=== PATIENT | female | born 1990 | race Caucasian/White ===

== ENCOUNTER → 2017-05-04 | Outpatient (CLI) | payer OTHER ==
[2015-04-10 13:34] VITALS: BMI 30.0
[~2017-05-04] MED LIST: ACE3 PO; ACET-1966 PO; AZI250 PO; BCP; CHOL100058 PO; CIPR500T12 PO; CYCL10TA29 PO; DOXY-179 PO; DUL20 PO; ETHI1TAB25 PO; FLUO-202 PO; GABA-549 PO; GUAI480S48 PO; HYDR-385 PO; HYDR25CA83 PO; HYDR2TAB4 PO; IBU600 PO; IBU800 PO; IBUP-56 PO; IBUP800T37 PO; INUL1TAB POF; KET10 PO; LAMO25TA72 PO; LEVO112T44 PO; LEVO1TAB PO; LOR5 PO; LOR5/325 PO; LOSA25TA50 PO; METO25TA23 PO; METR-1 PO; MULT-1372 PO; MULT-817 PO; NO RTN MEDS; NOR5/325 PO; NORE0.3516 PO; OMEP-218 PO; ONDA4TAB PO; ONDA4TAB9 PO; ONDA4TAB97 PO; OXC300 PO; OXYC-373 PO; OXYC-865 PO; PANT40TA65 PO; PER PO; PRED20TA6 PO; PRO25 PO; QUET25TA30 PO; STOOL SOFTENER PO; TOPI-120 PO
== END ==
LOC: LAB 09:44
PROVIDERS: ATTEND Internal Medicine Endocrinology, Diabetes & Metabolism
DX: E05.90 Thyrotoxicosis, unspecified without thyrotoxic crisis or storm (principal); E04.2 Nontoxic multinodular goiter
CPT/HCPCS: 36415; 84443; 84481

== ENCOUNTER 2017-05-09 12:54 | Emergency (ER) | payer OTHER ==
[2015-04-10 13:34] VITALS: Ht 162.6 cm; Wt 86.2 kg
[~2017-05-09] VITALS: Ht 162.6 cm; Wt 86.2 kg
--- NOTE | 2017-05-09 13:03 | ER Report ---
History and Physical Time Seen By MD: 13:03 HPI/ROS CHIEF COMPLAINT: Headache HISTORY OF PRESENT ILLNESS: This is a 26-year-old female who presents to the emergency department for a headache. Patient states she was seen at urgent care on Sunday for possible influenza which was negative diagnosed with a viral syndrome. Patient states she ended up going home with aches and chills, nausea, vomiting and diarrhea. Patient also states that yesterday she was very tired had a headache all day long, "the worst headache she's ever had", and according to the patient her told her that she had some left-sided facial droop and was slurring her words but the patient elected to go to sleep instead of coming in for evaluation. Patient states that she continues to have a headache today we did see urgent care and was sent to the emergency department for further evaluation. Patient continues to complain of aches, chills, nausea and vomiting as well as diarrhea. Patient denies chest pain, shortness of breath, denies fevers. Patient also drove herself into town today. I did ask the patient if she has a history of migraines, she said no she does not. REVIEW OF SYSTEMS: Constitutional: No fever, no chills. Eyes: No discharge. ENT: No sore throat. Cardiovascular: No chest pain, no palpitations. Respiratory: No cough, no shortness of breath. Gastrointestinal: As above. Genitourinary: No hematuria. Musculoskeletal: No back pain. Skin: No rashes. Neurological: As above. Allergies: Coded Allergies: fluconazole (Verified Allergy, Severe, 05/09/17) "KIDNEYS NEARLY SHUT DOWN" zolpidem (Verified Allergy, Intermediate, 05/09/17) latex (Verified Allergy, Mild, RASH, 05/09/17) promethazine (Verified Allergy, Mild, HIVES, 05/09/17) aripiprazole (Verified Allergy, Unknown, MENTAL STATUS CHANGES, 05/09/17) iron (Verified Allergy, Unknown, DIARRHEA, HIVES, SOB, 05/09/17) Home Meds Active Scripts Ibuprofen (IBUPROFEN) 800 Mg Tablet, 1 TAB PO Q8H, #30 TAB 0 Refills Take with food every 8 hours. Prov:NEAL MONTIEL MD 02/28/17 Reported Medications Inulin/Chromium Picolinate (Fiber Gummies) 1 Each Tab.chew, 1 TAB POF QDAY 02/26/17 Levothyroxine Sodium (SYNTHROID) 112 Mcg Tablet, 125 MCG PO QDAY, TAB 02/26/17 Duloxetine Hcl (CYMBALTA) 20 Mg Capcr, 20 MG PO QDAY, #5 CAP 02/26/17 Discontinued Scripts Ondansetron (ZOFRAN ODT) 4 Mg Tab.rapdis, 4 MG PO Q6H Y for NAUSEA/VOMITING, # 20 TAB.YURY 0 Refills Prov:JAMIE MORA MD 03/03/17 Oxycodone Hcl/Acetaminophen (OXYCODONE-ACETAMINOPHEN 5-325) 1 Each Tablet, 1-2 EACH PO Q4H Y for PAIN, #30 TAB 0 Refills TAKE 1-2 TABLET NEEDED FOR PAIN - NO CLOSER THAN EVERY 4 HOURS. Prov:NEAL MONTIEL MD 02/28/17 Past Medical/Surgical History Patient has a past medical and surgical history of migraines, takes medications for migraines, hypertension, asthma, wears glasses, hyperthyroid, appendectomy, suicide attempt, depression, anxiety, bipolar, hysterectomy, tubal ligation, shoulder scope. Hx Smoking: No Smoking Status: Never Smoker Hx Substance Use Disorder: No Hx Alcohol Use: No Constitutional Vital Sign - Last 24 Hours 05/09/17 05/09/17 05/09/17 05/09/17 13:00 13:01 13:24 13:26 Temp 98.3 Pulse 79 73 Resp 20 11 B/P (MAP) 175/118 (137) 178/118 138/101 (113) Pulse Ox 97 96 O2 Delivery Room Air 05/09/17 05/09/17 05/09/17 05/09/17 13:30 13:54 14:00 14:30 Pulse 68 Resp 14 B/P (MAP) 119/94 (102) 126/89 (101) 133/95 (108) Pulse Ox 96 05/09/17 05/09/17 05/09/17 05/09/17 14:35 14:40 15:00 16:00 Pulse 63 68 Resp 11 B/P (MAP) 140/98 (112) 142/99 (113) Pulse Ox 97 05/09/17 05/09/17 05/09/17 05/09/17 16:10 16:30 16:35 17:00 Pulse 73 79 B/P (MAP) 131/97 (108) 128/89 (102) Pulse Ox 97 96 05/09/17 05/09/17 05/09/17 05/09/17 17:05 17:30 17:35 17:43 Pulse 71 73 B/P (MAP) 124/85 (98) 130/98 (109) Pulse Ox 93 93 Intake and Output 05/09/17 05/09/17 05/10/17 15:00 23:00 07:00 Intake Total 1000 ml Balance 1000 ml Physical Exam General Appearance: The patient is alert, has no immediate need for airway protection and no signs of toxicity. Eyes: Pupils equal and round no pallor or injection. ENT, Mouth: Mucous membranes are moist. Soft palate lifting, uvula midline. Respiratory: There are no retractions, lungs are clear to auscultation. Cardiovascular: Regular rate and rhythm, no murmurs, clicks or rubs. Gastrointestinal: Abdomen is soft and non tender, no masses, bowel sounds normal. Neurological: Alert and oriented 4. Moving all extremities. Following all commands. No focal neuro deficits. No facial droop. No deviation of tongue. Shoulder shrug intact. Able to lift both legs off the gurney. Positive heel-to- bolaños bilaterally. Equal car washer strength. Cranial nerves II through XII intact. Skin: Warm and dry, no rashes. Musculoskeletal: Neck is supple non tender. Extremities are nontender, nonswollen and have full range of motion. DIFFERENTIAL DIAGNOSIS: After history and physical exam differential diagnosis was considered for headache including but not limited to subarachnoid hemorrhage , migraine headache, tension headache and infectious causes such as meningitis, pharyngitis and sinusitis. Medical Decision Making Data Points Result Diagram: 05/09/17 1310 05/09/17 1310 Laboratory Hematology Test 05/09/17 00:00 05/09/17 13:10 Red Blood Count 5.14 M/uL (4.17-5.56) Mean Corpuscular Volume 89.3 fL (80.0-96.0) Mean Corpuscular Hemoglobin 30.8 pg (26.0-33.0) Mean Corpuscular Hemoglobin Concent 34.5 g/dL (32.0-36.0) Red Cell Distribution Width 12.6 % (11.5-14.5) Mean Platelet Volume 8.8 fL (7.2-11.1) Neutrophils (%) (Auto) 56.6 % (39.4-72.5) Lymphocytes (%) (Auto) 33.8 % (17.6-49.6) Monocytes (%) (Auto) 6.3 % (4.1-12.4) Eosinophils (%) (Auto) 2.6 % (0.4-6.7) Basophils (%) (Auto) 0.7 % (0.3-1.4) Nucleated RBC Relative Count (auto) 0.1 /100WBC Neutrophils # (Auto) 3.7 K/uL (2.0-7.4) Lymphocytes # (Auto) 2.2 K/uL (1.3-3.6) Monocytes # (Auto) 0.4 K/uL (0.3-1.0) Eosinophils # (Auto) 0.2 K/uL (0.0-0.5) Basophils # (Auto) 0.0 K/uL (0.0-0.1) Nucleated RBC Absolute Count (auto) 0.01 K/uL Peripheral Blood Smear No Y/N Erythrocyte Sedimentation Rate 1 mm/HOUR (0-20) Sodium Level 141 mmol/L (137-145) Potassium Level 3.2 mmol/L (3.5-5.0) Chloride Level 102 mmol/L (98-107) Carbon Dioxide Level 27 mmol/L (22-31) Blood Urea Nitrogen 8 mg/dl (7-18) Creatinine 0.80 mg/dl (0.52-1.04) Glomerular Filtration Rate Calc > 60.0 Random Glucose 77 mg/dl (75-110) Calcium Level 9.0 mg/dl (8.4-10.2) Total Bilirubin 0.5 mg/dl (0.2-1.3) Aspartate Amino Transf (AST/SGOT) 31 U/L (0-35) Alanine Aminotransferase (ALT/SGPT) 41 U/L (0-56) Alkaline Phosphatase 75 U/L (0-126) Total Protein 7.7 gm/dl (6.3-8.2) Albumin 4.2 g/dl (3.5-5.0) Chemistry Test 05/09/17 00:00 05/09/17 13:10 White Blood Count 6.6 k/uL (4.5-11.0) Red Blood Count 5.14 M/uL (4.17-5.56) Hemoglobin 15.8 g/dL (12.0-16.0) Hematocrit 45.9 % (34.0-47.0) Mean Corpuscular Volume 89.3 fL (80.0-96.0) Mean Corpuscular Hemoglobin 30.8 pg (26.0-33.0) Mean Corpuscular Hemoglobin Concent 34.5 g/dL (32.0-36.0) Red Cell Distribution Width 12.6 % (11.5-14.5) Platelet Count 246 K/uL (150-450) Mean Platelet Volume 8.8 fL (7.2-11.1) Neutrophils (%) (Auto) 56.6 % (39.4-72.5) Lymphocytes (%) (Auto) 33.8 % (17.6-49.6) Monocytes (%) (Auto) 6.3 % (4.1-12.4) Eosinophils (%) (Auto) 2.6 % (0.4-6.7) Basophils (%) (Auto) 0.7 % (0.3-1.4) Nucleated RBC Relative Count (auto) 0.1 /100WBC Neutrophils # (Auto) 3.7 K/uL (2.0-7.4) Lymphocytes # (Auto) 2.2 K/uL (1.3-3.6) Monocytes # (Auto) 0.4 K/uL (0.3-1.0) Eosinophils # (Auto) 0.2 K/uL (0.0-0.5) Basophils # (Auto) 0.0 K/uL (0.0-0.1) Nucleated RBC Absolute Count (auto) 0.01 K/uL Peripheral Blood Smear No Y/N Erythrocyte Sedimentation Rate 1 mm/HOUR (0-20) Glomerular Filtration Rate Calc > 60.0 Calcium Level 9.0 mg/dl (8.4-10.2) Total Bilirubin 0.5 mg/dl (0.2-1.3) Aspartate Amino Transf (AST/SGOT) 31 U/L (0-35) Alanine Aminotransferase (ALT/SGPT) 41 U/L (0-56) Alkaline Phosphatase 75 U/L (0-126) Total Protein 7.7 gm/dl (6.3-8.2) Albumin 4.2 g/dl (3.5-5.0) EKG/Imaging Imaging Location: [facility] Patient: Emelina Dalal : 1990 Visit/Account:[id number] Date of Sevice: 05/09/2017 EXAMINATION: CT HEAD WITHOUT CONTRAST COMPARISON: None available HISTORY: Headache. PROCEDURE: Noncontrast CT from the vertex through the skull base. One of the following dose optimization techniques was utilized in the performance of this exam: Automated exposure control; adjustment of the mA and/or kV according to the patient's size; or use of an iterative reconstruction technique. Specific details can be referenced in the facility's radiology CT exam operational policy. FINDINGS: Brain volume: Age-appropriate volume. Hemorrhage/extra-axial fluid: No intracranial hemorrhage or extra-axial fluid collection. Mass effect/midline shift/edema: None. Ischemia: Alvarez-white differentiation is preserved. Ventricles and basal cisterns: Ventricle size is within normal limits. Basal cisterns are open. Posterior fossa: Negative. Vessels: Negative. Calvarium, skull base, and scalp: Negative. Visualized sinuses and orbits: Visualized paranasal sinuses are clear. Visualized globes are unremarkable. IMPRESSION: Negative age-appropriate noncontrast head CT. Report Dictated By: Peter Chen MD at 05/09/2017 2:25 PM Report E-Signed By: Peter Chen MD at 05/09/2017 2:28 PM [id number] Location: [facility] Patient: Emelina Dalal : 1990 Visit/Account:[id number] Date of Sevice: 05/09/2017 EXAMINATION: MR brain without IV contrast HISTORY: TIA symptoms. Dizziness. Rule out stroke. COMPARISON: CT head without contrast performed today. MR brain without and with contrast 03/01/2015 TECHNIQUE: Multi-planar, multi-sequence brain MRI was performed without IV contrast administration. FINDINGS: Brain volume: Normal. Sagittal midline structures: Normal. Ventricles: Normal. Acute ischemic changes: None. Hemorrhage: None. Masses / edema: None. Alvarez-white: Negative. White matter lesions: Normal Vessels: Normal T2 flow voids along the central intracranial vasculature. Extra-axial: None. Calvarium / scalp: Negative. Skull base: Negative. Visualized sinuses / orbits: Negative. Visualized upper neck: Negative. IMPRESSION: Normal noncontrast brain MRI without evidence of mass lesion, acute infarct or hemorrhage. Report Dictated By: Olu Tafoya MD at 05/09/2017 4:05 PM Report E-Signed By: Olu Tafoya MD at 05/09/2017 4:10 PM [id number] ED Course/Re-evaluation Clinical Indication for ER IV: Hydration, IV Access ED Course The patient was admitted to room. A history of disc were obtained. Differential diagnoses were considered. An IV was started. A 1 L normal saline bolus was given. 4 mg IV Zofran was given. A noncontrast CT was negative for a stroke. I did review these results with the patient and her father. Given the fact that the patient had "strokelike symptoms yesterday with facial droop" and the " worst headache she is ever had"we discussed a lumbar puncture and an MRI. Patient elected to go ahead and proceed with an MRI 1st, the MRI was negative for any acute findings. I did review these results with the patient and the father again. So discussed again a diagnostic lumbar puncture for her headache and her symptoms, after much discussion with patient and her father, and a father and the patient discussing this alone and they ultimately decided not to proceed with the lumbar puncture and follow up with Sejal Valerio on Sunday. I did tell her this is likely an atypical migraine headache, but without the diagnostic information from the lumbar puncture that we cannot completely rule out an infectious process of the brain, the patient and her father expressed understanding and were okay with this plan of care. Patient was encouraged to take ibuprofen and Tylenol as needed for her headaches and resume her regular medications. I also encouraged patient to follow up with Sejal Valerio regarding her blood pressure, as well as the headaches and a possible referral over to neurology for further evaluation of the migraines. Patient's and her father had no other questions or concerns at this time. Patient was smiling and states the pain had improved with the time she was discharged. The patient was discharged home. Patient was also encouraged to return to the emergency department for any other concerns or worsening symptoms. Decision to Disposition Date: May 09, 2017 Decision to Disposition Time: 17:31 Depart Departure Latest Vital Signs Vital Signs Date Time Temp Pulse Resp B/P (MAP) Pulse Ox O2 Delivery O2 Flow Rate FiO2 05/09/17 17:43 130/98 (109) 05/09/17 17:35 73 93 05/09/17 14:35 11 05/09/17 13:01 98.3 Room Air Impression: Primary Impression: Atypical migraine Condition: Improved Disposition: HOME OR SELF-CARE Referrals: BASSAM HOWELL (PCP) Patient Instructions: Migraine Headache (ED) Additional Instructions: Drink plenty of water. Get plenty of rest, this will be very helpful for your migraine. Please keep your appointment as scheduled with your provider on Sunday. Take ibuprofen and or Tylenol as needed for headaches. Continue current medications. May return to the ED for worsening symptoms. MANA PLASCENCIAP-BC May 09, 2017 13:03
[2017-05-09] MEDS ORDERED: NS(*) 0.9% 1000 ML BAG 1,000 ML IV ONE (13:15)
[2017-05-09] MEDS ORDERED: ONDANSETRON 4 MG/2 ML VIAL IVP ONE (13:15)
[2017-05-09 13:33] LABS: PLATELET COUNT, AUTOMATED 246 K/uL (150-450)
--- NOTE | 2017-05-09 14:32 | RADIOLOGY IMAGING REPORT ---
FACILITY: [facility] [place]IENT NAME: Emelina Dalal : 1990 MR: [id number] V: [id number] EXAM DATE: ORDERING PHYSICIAN: MANA PLASCENCIA TECHNOLOGIST: Location: [facility] [place] Patient: Emelina Dalal : 1990 Visit/Account:[id number] Date of Sevice: 05/09/2017 EXAMINATION: CT HEAD WITHOUT CONTRAST COMPARISON: None available HISTORY: Headache. PROCEDURE: Noncontrast CT from the vertex through the skull base. One of the following dose optimizat ion techniques was utilized in the performance of this exam: Automated exposure control; adjustment o f the mA and/or kV according to the patient's size; or use of an iterative reconstruction technique. Specific details can be referenced in the facility's radiology CT exam operational policy. FINDINGS: Brain volume: Age-appropriate volume. Hemorrhage/extra-axial fluid: No intracranial hemorrhage or extra-axial fluid collection. Mass effect/midline shift/edema: None. Ischemia: Alvarez-white differentiation is preserved. Ventricles and basal cisterns: Ventricle size is within normal limits. Basal cisterns are open. Posterior fossa: Negative. Vessels: Negative. Calvarium, skull base, and scalp: Negative. Visualized sinuses and orbits: Visualized paranasal sinuses are clear. Visualized globes are unremark able. IMPRESSION: Negative age-appropriate noncontrast head CT. Report Dictated By: Peter Chen MD at 05/09/2017 2:25 PM Report E-Signed By: Peter Chen MD at 05/09/2017 2:28 PM [id number]
[2017-05-09] MEDS ORDERED: diphenhydrAMINE 50 MG/ML VIAL IVP ONE (15:30)
--- NOTE | 2017-05-09 16:16 | RADIOLOGY IMAGING REPORT ---
FACILITY: [facility] PATIENT NAME: Emelina Dalal : 1990 MR: [id number] V: [id number] EXAM DATE: ORDERING PHYSICIAN: MANA PLASCENCIA TECHNOLOGIST: Location: [facility] [place] Patient: Emelina Dalal : 1990 Visit/Account:[id number] Date of Sevice: 05/09/2017 EXAMINATION: MR brain without IV contrast HISTORY: TIA symptoms. Dizziness. Rule out stroke. COMPARISON: CT head without contrast performed today. MR brain without and with contrast 03/01/2015 TECHNIQUE: Multi-planar, multi-sequence brain MRI was performed without IV contrast administration. FINDINGS: Brain volume: Normal. Sagittal midline structures: Normal. Ventricles: Normal. Acute ischemic changes: None. Hemorrhage: None. Masses / edema: None. Alvarez-white: Negative. White matter lesions: Normal Vessels: Normal T2 flow voids along the central intracranial vasculature. Extra-axial: None. Calvarium / scalp: Negative. Skull base: Negative. Visualized sinuses / orbits: Negative. Visualized upper neck: Negative. IMPRESSION: Normal noncontrast brain MRI without evidence of mass lesion, acute infarct or hemorrhage . Report Dictated By: Olu Tafoya MD at 05/09/2017 4:05 PM Report E-Signed By: Olu Tafoya MD at 05/09/2017 4:10 PM [id number]
[2017-05-09] MEDS ORDERED: KETOROLAC 30 MG/ML VIAL IVP ONE (16:30)
[2017-05-09 17:43] VITALS: BP 130/98
== END 2017-05-09 17:39 | disposition home or self-care (01) ==
LOC: ER 13:05
DX: G43.809 Other migraine, not intractable, without status migrainosus (principal)
CPT/HCPCS: 70450; 70551; 85025; 85651; 96361; 96374; 96375; 99284; J1200; J1885; J2405; J7030; 82040; 82247; 82310; 82374; 82435; 82565; 82947; 84075; 84132; 84155; 84295; 84450; 84460; 84520

== ENCOUNTER 2017-05-17 22:08 | Emergency (ER) | payer OTHER ==
[2015-04-10 13:34] VITALS: Ht 162.6 cm; Wt 84.8 kg
[~2017-05-17] VITALS: Ht 162.6 cm; Wt 84.8 kg
[2017-05-17] MEDS ORDERED: METO25TA23 PO (22:17)
[2017-05-17] MEDS ORDERED: OLAN10TA25 PO (22:17)
--- NOTE | 2017-05-17 22:23 | ER Report ---
History and Physical Time Seen By MD: 22:23 Hx. of Stated Complaint: PT REPORTS THAT SHE HAS NOT BEEN FEELING WELL. STATES THAT HER BP IS UP AND SHE HAS TINGLING ON LEFT SIDE. HPI/ROS CHIEF COMPLAINT: not feeling well, elevated blood pressure, headache, left side tingling HISTORY OF PRESENT ILLNESS: This is a 26 year old female. She has been having elevated blood pressure for a few weeks now. She has been started on Metoprolol succinate 25mg once a day. She has had a headache for a couple of weeks now. She has tingling in the left arm and leg which has been present for a few weeks as well. Has had CT brain and MRI brain about 1 week ago which were normal. The headache and numbness have not changed in that time. She has mild nausea. She showed me her blood pressure cuff reading which are all elevated, especially the diastolic readings. No fevers or chills with this. REVIEW OF SYSTEMS: Constitutional: No fever or chills. Eyes: No visual changes tonight. ENT: No sore throat. No congestion. Cardiovascular: No chest pain. No palpitations. Respiratory: No cough. No shortness of breath. Gastrointestinal: No abdominal pain. Genitourinary: No dysuria. No frequency Musculoskeletal: No musculoskeletal pain. Skin: No rashes. Neurological: As above. Allergies: Coded Allergies: fluconazole (Verified Allergy, Severe, 05/17/17) "KIDNEYS NEARLY SHUT DOWN" zolpidem (Verified Allergy, Intermediate, 05/17/17) latex (Verified Allergy, Mild, RASH, 05/17/17) promethazine (Verified Allergy, Mild, HIVES, 05/17/17) aripiprazole (Verified Allergy, Unknown, MENTAL STATUS CHANGES, 05/17/17) iron (Verified Allergy, Unknown, DIARRHEA, HIVES, SOB, 05/17/17) Home Meds Active Scripts Metoclopramide Hcl (REGLAN) 10 Mg Tablet, 10 MG PO Q8H Y for HEADACHE, #10 TAB 0 Refills Prov:GORAN VICTORIA MD 05/18/17 Ketorolac Tromethamine (KETOROLAC TROMETHAMINE) 10 Mg Tab, 10 MG PO Q6H Y for PAIN, #12 TAB 0 Refills Prov:GORAN VICTORIA MD 05/18/17 Reported Medications Metoprolol Succinate (METOPROLOL SUCCINATE) 25 Mg Tab.er.24h, 1 TAB PO QDAY, TAB 05/17/17 Olanzapine (OLANZAPINE) 10 Mg Tablet, 10 MG PO HS 05/17/17 Levothyroxine Sodium (SYNTHROID) 112 Mcg Tablet, 125 MCG PO QDAY, TAB 02/26/17 Duloxetine Hcl (CYMBALTA) 20 Mg Capcr, 60 MG PO QDAY, #5 CAP 02/26/17 Discontinued Reported Medications Inulin/Chromium Picolinate (Fiber Gummies) 1 Each Tab.chew, 1 TAB POF QDAY 02/26/17 Discontinued Scripts Ibuprofen (IBUPROFEN) 800 Mg Tablet, 1 TAB PO Q8H, #30 TAB 0 Refills Take with food every 8 hours. Prov:NEAL MONTIEL MD 02/28/17 Reviewed Nurses Notes: Yes Hx Smoking: No Smoking Status: Never Smoker Hx Substance Use Disorder: No Hx Alcohol Use: No Constitutional Vital Sign - Last 24 Hours 05/17/17 05/17/17 05/17/17 05/17/17 22:15 22:18 22:30 22:45 Pulse 87 85 83 84 Resp 10 10 15 11 B/P (MAP) 145/106 146/112 (123) Pulse Ox 95 96 93 92 O2 Delivery Room Air 05/17/17 05/17/17 05/17/17 05/17/17 22:50 22:51 23:00 23:14 Pulse 82 79 79 Resp 14 9 14 B/P (MAP) 130/102 (111) 130/102 (111) 120/89 (99) 120/89 (99) Pulse Ox 94 92 91 O2 Delivery Room Air Room Air 05/17/17 05/17/17 05/17/17 05/18/17 23:15 23:30 23:45 00:00 Pulse 80 79 72 74 Resp 20 8 7 15 B/P (MAP) 120/89 (99) 122/89 (100) Pulse Ox 93 90 91 93 05/18/17 00:15 Pulse 75 Pulse Ox 94 Physical Exam General Appearance: The patient is alert. No acute distress. Eyes: Pupils are equal, round. No pallor, injection or icterus. Reactive to light. Extraocular movements intact. ENT: Mucous membranes are moist. Posterior oropharynx is normal. Normal oral mucosa. Neck: Supple and non tender. Respiratory: Lungs are clear to auscultation. Cardiovascular: Regular rate and rhythm. No murmurs, gallops or rubs. Normal capillary refill. Gastrointestinal: Abdomen is soft, non-tender. Nondistended. Normal active bowel sounds. Neurological: Alert and oriented x3. Paresthesias throughout the left side. Normal motor function. Skin: Warm and dry. Musculoskeletal: Extremities are nontender. Full range of motion. DIFFERENTIAL DIAGNOSIS: After history and physical exam, differential diagnosis was considered for ongoing problems with blood pressure, headache, numbness. Medical Decision Making Data Points Result Diagram: 05/17/17222405/17/172224 Laboratory Hematology Test 05/17/17 22:25 Red Blood Count 5.01 M/uL (4.17-5.56) Mean Corpuscular Volume 89.7 fL (80.0-96.0) Mean Corpuscular Hemoglobin 31.1 pg (26.0-33.0) Mean Corpuscular Hemoglobin Concent 34.7 g/dL (32.0-36.0) Red Cell Distribution Width 12.5 % (11.5-14.5) Mean Platelet Volume 9.1 fL (7.2-11.1) Neutrophils (%) (Auto) 57.8 % (39.4-72.5) Lymphocytes (%) (Auto) 30.4 % (17.6-49.6) Monocytes (%) (Auto) 8.7 % (4.1-12.4) Eosinophils (%) (Auto) 2.2 % (0.4-6.7) Basophils (%) (Auto) 0.9 % (0.3-1.4) Nucleated RBC Relative Count (auto) 0.1 /100WBC Neutrophils # (Auto) 4.7 K/uL (2.0-7.4) Lymphocytes # (Auto) 2.4 K/uL (1.3-3.6) Monocytes # (Auto) 0.7 K/uL (0.3-1.0) Eosinophils # (Auto) 0.2 K/uL (0.0-0.5) Basophils # (Auto) 0.1 K/uL (0.0-0.1) Nucleated RBC Absolute Count (auto) 0.01 K/uL Urine Color Yellow Urine Clarity Clear Urine pH 6.0 pH (4.8-9.5) Urine Specific [place] 1.014 Urine Protein Negative mg/dL (NEGATIVE) Urine Glucose (UA) Negative mg/dL (NEGATIVE) Urine Ketones Negative mg/dL (NEGATIVE) Urine Blood Negative (NEGATIVE) Urine Nitrite Negative (NEGATIVE) Urine Bilirubin Negative (NEGATIVE) Urine Urobilinogen Negative mg/dL (0.2-1.9) Urine Leukocyte Esterase Negative (NEGATIVE) Urine RBC 3 /HPF (0-2/HPF) Urine WBC 2 /HPF (0-5/HPF) Urine Squamous Epithelial Cells Moderate /LPF (</=FEW) Urine Bacteria Negative /HPF (NONE-FEW) Urine Mucus Few /HPF (NONE-FEW) Sodium Level 139 mmol/L (137-145) Potassium Level 3.3 mmol/L (3.5-5.0) Chloride Level 97 mmol/L (98-107) Carbon Dioxide Level 28 mmol/L (22-31) Blood Urea Nitrogen 8 mg/dl (7-18) Creatinine 0.80 mg/dl (0.52-1.04) Glomerular Filtration Rate Calc > 60.0 Random Glucose 102 mg/dl (75-110) Calcium Level 9.2 mg/dl (8.4-10.2) Total Bilirubin 0.3 mg/dl (0.2-1.3) Aspartate Amino Transf (AST/SGOT) 41 U/L (0-35) Alanine Aminotransferase (ALT/SGPT) 56 U/L (0-56) Alkaline Phosphatase 83 U/L (0-126) Troponin I < 0.012 ng/ml Total Protein 7.5 gm/dl (6.3-8.2) Albumin 4.1 g/dl (3.5-5.0) Human Chorionic Gonadotropin, Qual Negative (NEGATIVE) Chemistry Test 05/17/17 22:25 White Blood Count 8.0 k/uL (4.5-11.0) Red Blood Count 5.01 M/uL (4.17-5.56) Hemoglobin 15.6 g/dL (12.0-16.0) Hematocrit 44.9 % (34.0-47.0) Mean Corpuscular Volume 89.7 fL (80.0-96.0) Mean Corpuscular Hemoglobin 31.1 pg (26.0-33.0) Mean Corpuscular Hemoglobin Concent 34.7 g/dL (32.0-36.0) Red Cell Distribution Width 12.5 % (11.5-14.5) Platelet Count 199 K/uL (150-450) Mean Platelet Volume 9.1 fL (7.2-11.1) Neutrophils (%) (Auto) 57.8 % (39.4-72.5) Lymphocytes (%) (Auto) 30.4 % (17.6-49.6) Monocytes (%) (Auto) 8.7 % (4.1-12.4) Eosinophils (%) (Auto) 2.2 % (0.4-6.7) Basophils (%) (Auto) 0.9 % (0.3-1.4) Nucleated RBC Relative Count (auto) 0.1 /100WBC Neutrophils # (Auto) 4.7 K/uL (2.0-7.4) Lymphocytes # (Auto) 2.4 K/uL (1.3-3.6) Monocytes # (Auto) 0.7 K/uL (0.3-1.0) Eosinophils # (Auto) 0.2 K/uL (0.0-0.5) Basophils # (Auto) 0.1 K/uL (0.0-0.1) Nucleated RBC Absolute Count (auto) 0.01 K/uL Urine Color Yellow Urine Clarity Clear Urine pH 6.0 pH (4.8-9.5) Urine Specific [place] 1.014 Urine Protein Negative mg/dL (NEGATIVE) Urine Glucose (UA) Negative mg/dL (NEGATIVE) Urine Ketones Negative mg/dL (NEGATIVE) Urine Blood Negative (NEGATIVE) Urine Nitrite Negative (NEGATIVE) Urine Bilirubin Negative (NEGATIVE) Urine Urobilinogen Negative mg/dL (0.2-1.9) Urine Leukocyte Esterase Negative (NEGATIVE) Urine RBC 3 /HPF (0-2/HPF) Urine WBC 2 /HPF (0-5/HPF) Urine Squamous Epithelial Cells Moderate /LPF (</=FEW) Urine Bacteria Negative /HPF (NONE-FEW) Urine Mucus Few /HPF (NONE-FEW) Glomerular Filtration Rate Calc > 60.0 Calcium Level 9.2 mg/dl (8.4-10.2) Total Bilirubin 0.3 mg/dl (0.2-1.3) Aspartate Amino Transf (AST/SGOT) 41 U/L (0-35) Alanine Aminotransferase (ALT/SGPT) 56 U/L (0-56) Alkaline Phosphatase 83 U/L (0-126) Troponin I < 0.012 ng/ml Total Protein 7.5 gm/dl (6.3-8.2) Albumin 4.1 g/dl (3.5-5.0) Human Chorionic Gonadotropin, Qual Negative (NEGATIVE) Urinalysis Test 05/17/17 22:25 Urine Color Yellow Urine Clarity Clear Urine pH 6.0 pH (4.8-9.5) Urine Specific [place] 1.014 Urine Protein Negative mg/dL (NEGATIVE) Urine Glucose (UA) Negative mg/dL (NEGATIVE) Urine Ketones Negative mg/dL (NEGATIVE) Urine Blood Negative (NEGATIVE) Urine Nitrite Negative (NEGATIVE) Urine Bilirubin Negative (NEGATIVE) Urine Urobilinogen Negative mg/dL (0.2-1.9) Urine Leukocyte Esterase Negative (NEGATIVE) Urine RBC 3 /HPF (0-2/HPF) Urine WBC 2 /HPF (0-5/HPF) Urine Squamous Epithelial Cells Moderate /LPF (</=FEW) Urine Bacteria Negative /HPF (NONE-FEW) Urine Mucus Few /HPF (NONE-FEW) EKG/Imaging EKG Interpretation 12 lead EKG: Rhythm: normal sinus rhythm [place]: normal QRS: Prolonged QT, otherwise normal ST segments: Nonspecific T-wave flattening Imaging PORTABLE CHEST: Indication: Chest tightness. Technique: A single frontal film was obtained. Comparison: 10/25/2016 Skeletal and soft tissue structures: Intact and unremarkable. Heart and mediastinum: Within normal limits. Lung villalobos: Well expanded and clear. No focal or diffuse opacities. No evidence of vascular congestion. Pleural spaces: Unremarkable. Impression: No acute process or significant change. Report Dictated By: Husam Salinas MD at 05/17/2017 11:52 PM ED Course/Re-evaluation Clinical Indication for ER IV: IV Access ED Course I reviewed the old imaging. We gave IV Labetalol to bring down the blood pressure, but no change in headache or numbness she has been having. Labs were unremarkable other than slightly low potassium at 3.3. Gave Reglan, Toradol and Benadryl which helped the headache a little. Still no change in numbness. Increased Metoprolol to 50mg once a day and recommended continued follow-up with Janna, her primary care provider and recommended consideration for neurology follow-up. Decision to Disposition Date: May 18, 2017 Decision to Disposition Time: 00:28 Depart Departure Latest Vital Signs Vital Signs Date Time Temp Pulse Resp B/P (MAP) Pulse Ox O2 Delivery O2 Flow Rate FiO2 05/18/17 00:15 75 94 05/18/17 00:00 15 122/89 (100) 05/17/17 23:14 Room Air Impression: Primary Impression: Hypertension Additional Impressions: Headache Paresthesias/numbness Referrals: JANNA HOWELL [employer] (PCP) New Scripts Metoclopramide Hcl (REGLAN) 10 Mg Tablet 10 MG PO Q8H Y for HEADACHE, #10 TAB 0 Refills Prov: GORAN VICTORIA MD 05/18/17 Ketorolac Tromethamine (KETOROLAC TROMETHAMINE) 10 Mg Tab 10 MG PO Q6H Y for PAIN, #12 TAB 0 Refills Prov: GORAN VICTORIA MD 05/18/17 Patient Instructions: Acute Headache (ED), Chronic Hypertension (ED), Paresthesia (ED) Additional Instructions: Please follow-up with your primary care provider for further evaluation. Increase your Metoprolol to 50mg once a day. Take a second dose as soon as you return home. For your headache, you can take Toradol 10mg, one every 6 hours as needed for pain. Take the nausea medicine Reglan 10mg, one every 8 hours as needed for headache or nausea. Problem Qualifiers Primary Impression: Hypertension Hypertension type: unspecified Qualified Codes: I10 - Essential (primary) hypertension Additional Impressions: Headache Headache type: unspecified Headache chronicity pattern: unspecified pattern Intractability: not intractable Qualified Codes: R51 - Headache GORAN VICTORIA MD May 17, 2017 22:23
[2017-05-17] MEDS ORDERED: LABETALOL HCL 20 MG/4 ML SYR IVP ONE (22:35)
[2017-05-17 22:45] LABS: PLATELET COUNT, AUTOMATED 199 K/uL (150-450)
[2017-05-17] MEDS ORDERED: LABETALOL HCL 100 MG/20ML VIAL ONE (22:50)
--- NOTE | 2017-05-17 23:56 | RADIOLOGY IMAGING REPORT ---
FACILITY: [facility] [place] PATIENT NAME: Emelina Dalal : 1990 MR: [id number] V: [id number] EXAM DATE: ORDERING PHYSICIAN: GORAN VICTORIA TECHNOLOGIST: Location: [facility] Patient: Emelina Dalal : 1990 Visit/Account:[id number] Date of Sevice: 05/17/2017 PORTABLE CHEST: Indication: Chest tightness. Technique: A single frontal film was obtained. Comparison: 10/25/2016 Skeletal and soft tissue structures: Intact and unremarkable. Heart and mediastinum: Within normal limits. Lung villalobos: Well expanded and clear. No focal or diffuse opacities. No evidence of vascular congesti on. Pleural spaces: Unremarkable. Impression: No acute process or significant change. Report Dictated By: Husam Salinas MD at 05/17/2017 11:52 PM Report E-Signed By: Husam Salinas MD at 05/17/2017 11:53 PM WSN:[id number]
[2017-05-18] VITALS: BP 122/89
[2017-05-18] MEDS ORDERED: diphenhydrAMINE 50 MG/ML VIAL IVP ONE (00:20)
[2017-05-18] MEDS ORDERED: METOCLOPRAMIDE 10 MG/2 ML SDV IVP ONE (00:20)
[2017-05-18] MEDS ORDERED: KETOROLAC 30 MG/ML VIAL IVP ONE (00:20)
[2017-05-18] MEDS ORDERED: KETOROLAC TROM 10 MG TAB TH PO ONE (00:30)
[2017-05-18] MEDS ORDERED: METOCLOPRAMIDE 10 MG TAB PO ONE (00:30)
[2017-05-18] MEDS ORDERED: KET10 PO (00:31)
[2017-05-18] MEDS ORDERED: METO-734 PO (00:31)
--- NOTE | 2017-05-18 04:42 | EKG ---
FACILITY: [facility] [place] PATIENT NAME: EM SOTO : [id number] MR: [id number] V: [id number] EXAM DATE: ORDERING PHYSICIAN: GORAN VICTORIA TECHNOLOGIST: Test Reason : Blood Pressure : / mmHG Vent. Rate : 082 BPM Atrial Rate : 082 BPM P-R Int : 138 ms QRS Dur : 082 ms QT Int : 394 ms P-R-T Axes : 046 025 035 degrees QTc Int : 460 ms Normal sinus rhythm Nonspecific T wave abnormality When compared with ECG of 25-OCT-2016 11:19, Previous ECG has undetermined rhythm, needs review Nonspecific T wave abnormality has replaced inverted T waves in Inferior leads Nonspecific T wave abnormality no longer evident in Lateral leads Confirmed by CORWIN HUTCHINSON ([id number]) on 05/18/2017 6:13:50 AM Referred By: Confirmed By:CORWIN HUTCHINSON
== END 2017-05-18 00:38 | disposition home or self-care (01) ==
LOC: ER 22:13
DX: I10 Essential (primary) hypertension (principal); R51 Headache; R20.2 Paresthesia of skin
CPT/HCPCS: 71045; 81001; 84484; 84703; 85025; 93005; 96374; 96375; 99284; J1200; J1885; J2765; J3490; J8597; 82040; 82247; 82310; 82374; 82435; 82565; 82947; 84075; 84132; 84155; 84295; 84450; 84460; 84520

== ENCOUNTER 2017-05-20 18:34 | Emergency (ER) | payer OTHER ==
[2015-04-10 13:34] VITALS: Ht 162.6 cm; Wt 84.8 kg
[~2017-05-20] VITALS: Ht 162.6 cm; Wt 84.8 kg
[~2017-05-20 18:34] MED LIST changes: +METO-734 PO; +OLAN10TA25 PO
--- NOTE | 2017-05-20 18:39 | ER Report ---
History and Physical Time Seen By MD: 18:38 HPI/ROS CHIEF COMPLAINT: Chest pain, elevated blood pressure HISTORY OF PRESENT ILLNESS: 26-year-old female presents ambulatory to the ER complaining of chest pain, diaphoresis, shortness of breath and not feeling right. She checked her blood pressure at home. She got 178/98. She is recently been seen here in the ER in 2 previous occasions 05/09/17 and 05/18/17. On 05/09 she had an extensive evaluation for left-sided numbness and paresthesia. She had a CT and MRI of the brain which were unremarkable. She was started on metoprolol 25 mg daily for elevation of her blood pressure. She returned 2 days ago plating of a headache and hypertension. She was treated with Reglan, ketorolac and Benadryl. She was discharged home on Reglan and ketorolac. Her metoprolol was increased to 50 mg per day. She has an appointment to follow-up with her primary care tomorrow. Tonight she describes substernal chest pain without radiation to her arms. She continues to state that she has left side paresthesias in her leg and arm. She notes no visual changes, no speech changes , no visual changes. She states she just doesn't feel right. She states she's been sleeping for the last 2 days due to fatigue. I asked her she's has any thyroid disease or had her TSH checked. Evaluation of her record shows that she had an ultrasensitive TSH checked on 1216 and and on 05/04/17 which were normal. Back in December 2016. She had a low free T3 noted at 2.1. Her recent free T3's have been normal. Patient denies fever, chills, productive cough or sore throat. REVIEW OF SYSTEMS: Respiratory: No cough, no dyspnea. Cardiovascular: As above Gastrointestinal: No vomiting, no abdominal pain. Musculoskeletal: No back pain. Allergies: Coded Allergies: fluconazole (Verified Allergy, Severe, 05/17/17) "KIDNEYS NEARLY SHUT DOWN" zolpidem (Verified Allergy, Intermediate, 05/17/17) latex (Verified Allergy, Mild, RASH, 05/17/17) promethazine (Verified Allergy, Mild, HIVES, 05/17/17) aripiprazole (Verified Allergy, Unknown, MENTAL STATUS CHANGES, 05/17/17) iron (Verified Allergy, Unknown, DIARRHEA, HIVES, SOB, 05/17/17) Home Meds Active Scripts Metoclopramide Hcl (REGLAN) 10 Mg Tablet, 10 MG PO Q8H Y for HEADACHE, #10 TAB 0 Refills Prov:GORAN VICTORIA MD 05/18/17 Ketorolac Tromethamine (KETOROLAC TROMETHAMINE) 10 Mg Tab, 10 MG PO Q6H Y for PAIN, #12 TAB 0 Refills Prov:GORAN VICTORIA MD 05/18/17 Reported Medications Metoprolol Succinate (METOPROLOL SUCCINATE) 25 Mg Tab.er.24h, 1 TAB PO QDAY, TAB 05/17/17 Olanzapine (OLANZAPINE) 10 Mg Tablet, 10 MG PO HS 05/17/17 Levothyroxine Sodium (SYNTHROID) 112 Mcg Tablet, 125 MCG PO QDAY, TAB 02/26/17 Duloxetine Hcl (CYMBALTA) 20 Mg Capcr, 60 MG PO QDAY, #5 CAP 02/26/17 Discontinued Reported Medications Inulin/Chromium Picolinate (Fiber Gummies) 1 Each Tab.chew, 1 TAB POF QDAY 02/26/17 Discontinued Scripts Ibuprofen (IBUPROFEN) 800 Mg Tablet, 1 TAB PO Q8H, #30 TAB 0 Refills Take with food every 8 hours. Prov:NEAL MONTIEL MD 02/28/17 Past Medical/Surgical History Patient has a past medical and surgical history of migraines, takes medications for migraines, hypertension, asthma, wears glasses, hyperthyroid, appendectomy, suicide attempt, depression, anxiety, bipolar, hysterectomy, tubal ligation, shoulder scope. Reviewed Nurses Notes: Yes Old Medical Records Reviewed: Yes Hx Smoking: No Smoking Status: Never Smoker Hx Substance Use Disorder: No Hx Alcohol Use: No Constitutional Vital Sign - Last 24 Hours 05/20/17 05/20/17 05/20/17 05/20/17 18:42 18:45 19:00 19:15 Pulse 92 90 83 90 Resp 20 B/P (MAP) 111/95 Pulse Ox 97 96 91 93 O2 Delivery Room Air 05/20/17 05/20/17 19:30 19:36 Pulse 88 88 Resp 16 B/P (MAP) 132/88 (103) Pulse Ox 92 O2 Delivery Room Air Physical Exam General Appearance: The patient is alert, has no immediate need for airway protection and no current signs of toxicity. No acute distress, vital signs stable, blood pressure remarkably normal 111/95 HEENT: Pupils equal and round no injection. TMs normal, oropharynx without redness or exudate Respiratory: Chest is non tender, lungs are clear to auscultation. No chest wall tenderness on palpation Cardiac: regular rate and rhythm, no murmur Gastrointestinal: Abdomen is soft and non tender, no masses, bowel sounds normal. Musculoskeletal: Neck: Neck is supple and non tender. Extremities have full range of motion and are non tender. Skin: No rashes or lesions. DIFFERENTIAL DIAGNOSIS: After history and physical exam differential diagnosis was considered for chest pain including but not limited to myocardial ischemia, pericarditis pulmonary embolus, chest wall pain, pleural inflammation, anxiety and pulmonary infectious causes. Medical Decision Making Data Points Result Diagram: 05/20/170 05/20/17 1850 Laboratory Hematology Test 05/20/17 18:50 Red Blood Count 4.77 M/uL (4.17-5.56) Mean Corpuscular Volume 89.1 fL (80.0-96.0) Mean Corpuscular Hemoglobin 31.0 pg (26.0-33.0) Mean Corpuscular Hemoglobin Concent 34.8 g/dL (32.0-36.0) Red Cell Distribution Width 12.4 % (11.5-14.5) Mean Platelet Volume 8.4 fL (7.2-11.1) Neutrophils (%) (Auto) 62.0 % (39.4-72.5) Lymphocytes (%) (Auto) 27.7 % (17.6-49.6) Monocytes (%) (Auto) 7.3 % (4.1-12.4) Eosinophils (%) (Auto) 2.2 % (0.4-6.7) Basophils (%) (Auto) 0.8 % (0.3-1.4) Nucleated RBC Relative Count (auto) 0.1 /100WBC Neutrophils # (Auto) 4.9 K/uL (2.0-7.4) Lymphocytes # (Auto) 2.2 K/uL (1.3-3.6) Monocytes # (Auto) 0.6 K/uL (0.3-1.0) Eosinophils # (Auto) 0.2 K/uL (0.0-0.5) Basophils # (Auto) 0.1 K/uL (0.0-0.1) Nucleated RBC Absolute Count (auto) 0.01 K/uL D-Dimer Quantitative (PE/DVT) 0.33 ug/ml (0-0.50) Sodium Level 139 mmol/L (137-145) Potassium Level 3.5 mmol/L (3.5-5.0) Chloride Level 103 mmol/L (98-107) Carbon Dioxide Level 23 mmol/L (22-31) Blood Urea Nitrogen 10 mg/dl (7-18) Creatinine 0.80 mg/dl (0.52-1.04) Glomerular Filtration Rate Calc > 60.0 Random Glucose 92 mg/dl (75-110) Calcium Level 8.9 mg/dl (8.4-10.2) Total Bilirubin 0.3 mg/dl (0.2-1.3) Aspartate Amino Transf (AST/SGOT) 36 U/L (0-35) Alanine Aminotransferase (ALT/SGPT) 49 U/L (0-56) Alkaline Phosphatase 72 U/L (0-126) Troponin I < 0.012 ng/ml Total Protein 7.1 gm/dl (6.3-8.2) Albumin 3.9 g/dl (3.5-5.0) Chemistry Test 05/20/17 18:50 White Blood Count 7.9 k/uL (4.5-11.0) Red Blood Count 4.77 M/uL (4.17-5.56) Hemoglobin 14.8 g/dL (12.0-16.0) Hematocrit 42.5 % (34.0-47.0) Mean Corpuscular Volume 89.1 fL (80.0-96.0) Mean Corpuscular Hemoglobin 31.0 pg (26.0-33.0) Mean Corpuscular Hemoglobin Concent 34.8 g/dL (32.0-36.0) Red Cell Distribution Width 12.4 % (11.5-14.5) Platelet Count 213 K/uL (150-450) Mean Platelet Volume 8.4 fL (7.2-11.1) Neutrophils (%) (Auto) 62.0 % (39.4-72.5) Lymphocytes (%) (Auto) 27.7 % (17.6-49.6) Monocytes (%) (Auto) 7.3 % (4.1-12.4) Eosinophils (%) (Auto) 2.2 % (0.4-6.7) Basophils (%) (Auto) 0.8 % (0.3-1.4) Nucleated RBC Relative Count (auto) 0.1 /100WBC Neutrophils # (Auto) 4.9 K/uL (2.0-7.4) Lymphocytes # (Auto) 2.2 K/uL (1.3-3.6) Monocytes # (Auto) 0.6 K/uL (0.3-1.0) Eosinophils # (Auto) 0.2 K/uL (0.0-0.5) Basophils # (Auto) 0.1 K/uL (0.0-0.1) Nucleated RBC Absolute Count (auto) 0.01 K/uL D-Dimer Quantitative (PE/DVT) 0.33 ug/ml (0-0.50) Glomerular Filtration Rate Calc > 60.0 Calcium Level 8.9 mg/dl (8.4-10.2) Total Bilirubin 0.3 mg/dl (0.2-1.3) Aspartate Amino Transf (AST/SGOT) 36 U/L (0-35) Alanine Aminotransferase (ALT/SGPT) 49 U/L (0-56) Alkaline Phosphatase 72 U/L (0-126) Troponin I < 0.012 ng/ml Total Protein 7.1 gm/dl (6.3-8.2) Albumin 3.9 g/dl (3.5-5.0) Coagulation Test 05/20/17 18:50 D-Dimer Quantitative (PE/DVT) 0.33 ug/ml EKG/Imaging EKG Interpretation 12 lead EK Rhythm: normal sinus rhythm, rate of 86 bpm [place]: normal QRS: normal ST segments: normal, no evidence of ischemia or dysrhythmia ED Course/Re-evaluation Clinical Indication for ER IV: IV Access ED Course Patient was admitted to an examination room. H&P was done. The differential diagnoses was considered. Patient's had 2 previous ER visits. She's had extensive evaluation. She is had a CT and MRI showing no pathology. She has left-sided paresthesias of unclear significance. Basic diagnostic laboratory studies are repeated done. Diagnostic studies show no evidence of cardiac ischemia, pulmonary embolism or other serious pathology. She is advised to follow-up with her primary care for referral to neurology and other specialty services. Decision to Disposition Date: May 20, 2017 Decision to Disposition Time: 19:33 Depart Departure Latest Vital Signs Vital Signs Date Time Temp Pulse Resp B/P (MAP) Pulse Ox O2 Delivery O2 Flow Rate FiO2 05/20/17 19:36 88 16 132/88 (103) 92 Room Air Impression: Primary Impression: Chest pain of uncertain etiology Additional Impressions: Hypertension Paresthesia Hypothyroidism Condition: Improved Disposition: HOME OR SELF-CARE Referrals: BASSAM HOWELL (PCP) Patient Instructions: Hypertension (DC), Paresthesia (ED) Additional Instructions: Follow-up with your primary care as planned tomorrow Continue all current medications as prescribed Problem Qualifiers Additional Impressions: Hypertension Hypertension type: essential hypertension Qualified Codes: I10 - Essential ( primary) hypertension Hypothyroidism Hypothyroidism type: unspecified Qualified Codes: E03.9 - Hypothyroidism, unspecified LAZARO BOYD DO May 20, 2017 18:39
[2017-05-20 19:02] LABS: PLATELET COUNT, AUTOMATED 213 K/uL (150-450)
[2017-05-20 19:36] VITALS: BP 132/88
--- NOTE | 2017-05-20 20:26 | EKG ---
FACILITY: [facility] PATIENT NAME: EM SOTO : [id number] MR: [id number] V: [id number] EXAM DATE: ORDERING PHYSICIAN: LAZARO BOYD TECHNOLOGIST: Twan Olivares Reason : Blood Pressure : / mmHG Vent. Rate : 086 BPM Atrial Rate : 086 BPM P-R Int : 126 ms QRS Dur : 082 ms QT Int : 378 ms P-R-T Axes : 039 041 026 degrees QTc Int : 452 ms Normal sinus rhythm R wave progression consistent with an old ant/sep VA vs lead placement When compared with ECG of 17-MAY-2017 22:42, No with poor R wave progression Confirmed by COWRIN HUTCHINSON ([id number]) on 05/21/2017 6:28:54 AM Referred By: Confirmed By:CORWIN HUTCHINSON
== END 2017-05-20 19:41 | disposition home or self-care (01) ==
LOC: ER 18:47
DX: I10 Essential (primary) hypertension (principal); R07.89 Other chest pain; E03.9 Hypothyroidism, unspecified; R20.2 Paresthesia of skin
CPT/HCPCS: 82040; 82247; 82310; 82374; 82435; 82565; 82947; 84075; 84132; 84155; 84295; 84450; 84460; 84484; 84520; 85025; 85379; 93005; 99284

== ENCOUNTER → 2017-05-21 | Outpatient (CLI) | payer OTHER ==
[2015-04-10 13:34] VITALS: BMI 30.0
[2017-05-21 14:38] LABS: PLATELET COUNT, AUTOMATED 217 K/uL (150-450)
== END ==
LOC: LAB 13:57
PROVIDERS: ATTEND Nurse Practitioner Family
DX: R05 Cough (principal); I10 Essential (primary) hypertension; R50.9 Fever, unspecified; E03.8 Other specified hypothyroidism
CPT/HCPCS: 36415; 82040; 82247; 82310; 82374; 82435; 82565; 82947; 84075; 84132; 84155; 84295; 84443; 84450; 84460; 84520; 85025; 87502

== ENCOUNTER 2017-05-23 03:45 | Emergency (ER) | payer OTHER ==
[2015-04-10 13:34] VITALS: Wt 84.8 kg
--- NOTE | 2017-05-23 03:47 | ER Report ---
History and Physical Time Seen By MD: 03:47 HPI/ROS CHIEF COMPLAINT: Nausea, vomiting,? Medication reaction HISTORY OF PRESENT ILLNESS: 26-year-old female presents ambulatory to the ER with vomiting for several hours. She thinks that she might have the illness that her children are experiencing. Patient thinks she might have an allergic reaction to her recent blood pressure medications that were initiated by her primary care physician. Patient has no rash, no throat swelling sensation. No wheezing. She has no fatigue other than what she associates with the illness. Patient denies diarrhea. Patient denies exposure to bad food, and recent travel. REVIEW OF SYSTEMS: Respiratory: No cough, no dyspnea. Cardiovascular: No chest pain, no palpitations. Gastrointestinal: As above Musculoskeletal: No back pain. Allergies: Coded Allergies: fluconazole (Verified Allergy, Severe, 05/17/17) "KIDNEYS NEARLY SHUT DOWN" zolpidem (Verified Allergy, Intermediate, 05/17/17) latex (Verified Allergy, Mild, RASH, 05/17/17) promethazine (Verified Allergy, Mild, HIVES, 05/17/17) aripiprazole (Verified Allergy, Unknown, MENTAL STATUS CHANGES, 05/17/17) iron (Verified Allergy, Unknown, DIARRHEA, HIVES, SOB, 05/17/17) Home Meds Active Scripts Ondansetron (ZOFRAN ODT) 4 Mg Tab.rapdis, 4 MG PO every 6 hours Y for NAUSEA/ VOMITING, #10 TAB TAKE 1 TABLET BY MOUTH EVERY 12 HOURS Prov:DEBKUNAugusta William DO 05/23/17 Reported Medications Spironolactone (SPIRONOLACTONE) 25 Mg Tablet, 25 MG PO, TAB 05/23/17 Losartan Potassium (LOSARTAN POTASSIUM) 50 Mg Tablet, 50 MG PO QDAY 05/23/17 Metoprolol Succinate (METOPROLOL SUCCINATE) 25 Mg Tab.er.24h, 1 TAB PO QDAY, TAB 05/17/17 Olanzapine (OLANZAPINE) 10 Mg Tablet, 10 MG PO HS 05/17/17 Levothyroxine Sodium (SYNTHROID) 112 Mcg Tablet, 125 MCG PO QDAY, TAB 02/26/17 Duloxetine Hcl (CYMBALTA) 20 Mg Capcr, 60 MG PO QDAY, #5 CAP 02/26/17 Discontinued Reported Medications Losartan Potassium (LOSARTAN POTASSIUM) 25 Mg Tablet, 25 MG PO QDAY 05/23/17 Inulin/Chromium Picolinate (Fiber Gummies) 1 Each Tab.chew, 1 TAB POF QDAY 02/26/17 Discontinued Scripts Metoclopramide Hcl (REGLAN) 10 Mg Tablet, 10 MG PO Q8H Y for HEADACHE, #10 TAB 0 Refills Prov:GORAN VICTORIA MD 05/18/17 Ketorolac Tromethamine (KETOROLAC TROMETHAMINE) 10 Mg Tab, 10 MG PO Q6H Y for PAIN, #12 TAB 0 Refills Prov:GORAN VICTORIA MD 05/18/17 Ibuprofen (IBUPROFEN) 800 Mg Tablet, 1 TAB PO Q8H, #30 TAB 0 Refills Take with food every 8 hours. Prov:NEAL MONTIEL MD 02/28/17 Reviewed Nurses Notes: Yes Old Medical Records Reviewed: Yes Hx Smoking: No Smoking Status: Never Smoker Hx Substance Use Disorder: No Hx Alcohol Use: No Constitutional Vital Sign - Last 24 Hours 05/23/17 05/23/17 05/23/17 05/23/17 03:50 03:50 03:55 04:00 Temp 97.6 Pulse 67 65 72 Resp 16 B/P (MAP) 142/98 (113) 142/98 128/98 (108) Pulse Ox 91 92 94 O2 Delivery Room Air 05/23/17 05/23/17 05/23/17 05/23/17 04:04 04:09 04:14 04:19 Pulse 73 73 74 71 Pulse Ox 88 92 93 92 05/23/17 05/23/17 05/23/17 05/23/17 04:24 04:29 04:30 04:34 Pulse 70 70 69 B/P (MAP) 131/93 (106) Pulse Ox 92 92 92 05/23/17 05/23/17 05/23/17 05/23/17 04:44 04:49 04:59 05:00 Pulse 72 70 74 B/P (MAP) 121/96 (104) Pulse Ox 94 93 91 Physical Exam General Appearance: The patient is alert, has no immediate need for airway protection and no current signs of toxicity. Vital signs stable, afebrile HEENT: Pupils equal and round no injection. TMs normal, oropharynx with mild erythema, no exudate or petechiae Respiratory: Chest is non tender, lungs are clear to auscultation. No wheezing , no rales Cardiac: regular rate and rhythm Gastrointestinal: Abdomen is soft and non tender, no masses, bowel sounds normal. Musculoskeletal: Neck: Neck is supple and non tender. Extremities have full range of motion and are non tender. Skin: No rashes or lesions. DIFFERENTIAL DIAGNOSIS: After history and physical exam differential diagnosis was considered for vomiting, viral syndrome, medication intolerance, allergic reaction, food poisoning, Medical Decision Making ED Course/Re-evaluation ED Course Patient was admitted to an examination room. H&P was done. The differential diagnoses was considered. Patient with some symptoms that she is attributed to an allergic reaction. It seems unlikely. Patient has no throat swelling, no wheezing, no loss of blood pressure, no hives or itching. She has cold symptoms and her child is been sick with cold symptoms. She has a dry scratchy throat. She's been having some vomiting. Patient has 3 blood pressure medications which I'll been started recently. I do not think she is having any adverse effects to these medications. I advised her to continue them and follow -up with her doctor in week. Patient was treated orally with Zofran for her nausea. She was provided a prescription for Zofran to continue using for nausea control. She is advised [id number] management of her cold symptoms. Decision to Disposition Date: May 23, 2017 Decision to Disposition Time: 04:19 Depart Departure Latest Vital Signs Vital Signs Date Time Temp Pulse Resp B/P (MAP) Pulse Ox O2 Delivery O2 Flow Rate FiO2 05/23/17 05:00 121/96 (104) 05/23/17 04:59 74 91 05/23/17 03:50 97.6 16 Room Air Impression: Primary Impression: Vomiting Additional Impressions: Viral syndrome Hypertension Condition: Improved Disposition: HOME OR SELF-CARE Referrals: BASSAM HOWELL (PCP) New Scripts Ondansetron (ZOFRAN ODT) 4 Mg Tab.rapdis 4 MG PO every 6 hours Y for NAUSEA/VOMITING, #10 TAB TAKE 1 TABLET BY MOUTH EVERY 12 HOURS Prov: LAZARO BOYD DO 05/23/17 Patient Instructions: Acute Nausea and Vomiting (ED), Viral Syndrome (ED) Additional Instructions: Follow clear liquid diet for 24 hours, then advance to the brat diet, bananas, rice, applesauce, toast Follow up with your primary care if unimproved in 3-5 days Problem Qualifiers Primary Impression: Vomiting Vomiting type: unspecified Vomiting Intractability: unspecified Nausea presence: with nausea Qualified Codes: R11.2 - Nausea with vomiting, unspecified Additional Impressions: Hypertension Hypertension type: essential hypertension Qualified Codes: I10 - Essential ( primary) hypertension LAZARO BOYD DO May 23, 2017 03:47
[2017-05-23] MEDS ORDERED: LOSA25TA50 PO (03:57)
[2017-05-23] MEDS ORDERED: SPIR25TA78 PO (03:57)
[2017-05-23] MEDS ORDERED: LOSA50TA72 PO (03:57)
[2017-05-23] MEDS ORDERED: ONDANSETRON 4 MG ODT TABDP SL ONE ×2 (04:07→04:10)
[2017-05-23] MEDS ORDERED: ONDA4TAB PO (04:31)
[2017-05-23 05:00] VITALS: BP 121/96
[2017-05-23] MEDS ORDERED: ONDANSETRON 4 MG ODT TH SL ONE (05:00)
== END 2017-05-23 05:04 | disposition home or self-care (01) ==
LOC: ER 03:47
DX: B34.9 Viral infection, unspecified (principal); I10 Essential (primary) hypertension; R11.10 Vomiting, unspecified
CPT/HCPCS: 99283; S0119

== ENCOUNTER 2017-06-11 09:15 | Emergency (ER) | payer OTHER ==
[2015-04-10 13:34] VITALS: Wt 90.7 kg
[~2017-06-11 09:15] MED LIST changes: +LOSA50TA72 PO; +SPIR25TA78 PO
[2017-06-11] MEDS ORDERED: AMIL5TAB11 PO (09:31)
[2017-06-11] MEDS ORDERED: PANT40TA65 PO (09:31)
--- NOTE | 2017-06-11 09:42 | ER Report ---
History and Physical Time Seen By MD: 09:32 Hx. of Stated Complaint: patient states that she had "really high blood pressure and left sided numbness ; patient states that both legs were "really swollen and black and blue". patient thinks that she has an blood clot HPI/ROS CHIEF COMPLAINT: Leg pain left lower extremity HISTORY OF PRESENT ILLNESS: 26-year-old female with "heart problems" described as a "leaky valve" presents with left lower extremity pain associated with numbness and tingling seemed to be "black and blue" earlier today and concern for blood clots. She denies prior clots. She reports recent high blood pressure despite, plants with multiple blood pressure medications. Denies chest pain shortness of breath abdominal pain nausea vomiting skin rash or skin color changes fevers or chills. She developed pneumonia 2 weeks ago and mom is concerned she may still have pneumonia. Denies other concerns. REVIEW F SYSTEMS: Respiratory: No cough, no dyspnea. Cardiovascular: No chest pain, no palpitations. Gastrointestinal: No vomiting, no abdominal pain. Musculoskeletal: No back pain. Allergies: Coded Allergies: fluconazole (Verified Allergy, Severe, 06/11/17) "KIDNEYS NEARLY SHUT DOWN" zolpidem (Verified Allergy, Intermediate, 06/11/17) latex (Verified Allergy, Mild, RASH, 06/11/17) promethazine (Verified Allergy, Mild, HIVES, 06/11/17) aripiprazole (Verified Allergy, Unknown, MENTAL STATUS CHANGES, 06/11/17) iron (Verified Allergy, Unknown, DIARRHEA, HIVES, SOB, 06/11/17) Home Meds Active Scripts Prednisone (PREDNISONE) 20 Mg Tablet, 40 MG PO DAILY Y for ANXIETY for 5 Days, # 10 TAB Prov:RYAN HUNT MD 06/11/17 Cyclobenzaprine Hcl (CYCLOBENZAPRINE HCL) 10 Mg Tablet, 10 MG PO Q8H Y for MUSCLE SPASMS, #20 TAB 0 Refills Prov:RYAN HUNT MD 06/11/17 Reported Medications Olanzapine (OLANZAPINE) 10 Mg Tablet, 10 MG PO QDAY 06/11/17 Pantoprazole Sodium (PANTOPRAZOLE SODIUM) 40 Mg Tablet.dr, 40 MG PO QDAY, TAB.SR 06/11/17 Amiloride Hcl (AMILORIDE HCL) 5 Mg Tablet, 5 MG PO QDAY 06/11/17 Losartan Potassium (LOSARTAN POTASSIUM) 50 Mg Tablet, 50 MG PO QDAY 05/23/17 Metoprolol Succinate (METOPROLOL SUCCINATE) 25 Mg Tab.er.24h, 1 TAB PO QDAY, TAB 05/17/17 Levothyroxine Sodium (SYNTHROID) 112 Mcg Tablet, 125 MCG PO QDAY, TAB 02/26/17 Duloxetine Hcl (CYMBALTA) 20 Mg Capcr, 60 MG PO QDAY, #5 CAP 02/26/17 Discontinued Reported Medications Spironolactone (SPIRONOLACTONE) 25 Mg Tablet, 25 MG PO, TAB 05/23/17 Olanzapine (OLANZAPINE) 10 Mg Tablet, 10 MG PO HS 05/17/17 Discontinued Scripts Ondansetron (ZOFRAN ODT) 4 Mg Tab.rapdis, 4 MG PO every 6 hours Y for NAUSEA/ VOMITING, #10 TAB TAKE 1 TABLET BY MOUTH EVERY 12 HOURS Prov:DEBKUNAugusta William DO 05/23/17 Hx Smoking: No Smoking Status: Never Smoker Hx Substance Use Disorder: No Hx Alcohol Use: No Constitutional Vital Sign - Last 24 Hours 06/11/17 06/11/17 06/11/17 06/11/17 09:22 09:23 09:30 10:00 Temp 98.5 Pulse 80 Resp 18 B/P (MAP) 137/92 137/92 (107) 138/99 (112) 128/92 (104) Pulse Ox 97 O2 Delivery Room Air 06/11/17 06/11/17 06/11/17 06/11/17 10:15 10:30 10:35 11:00 Pulse 86 87 B/P (MAP) 126/97 (107) 121/94 (103) Pulse Ox 94 93 06/11/17 06/11/17 06/11/17 06/11/17 11:05 11:10 11:30 11:40 Pulse 87 89 91 B/P (MAP) 120/92 (101) Pulse Ox 95 93 96 Physical Exam General Appearance: The patient is alert, has no immediate need for airway protection and no signs of toxicity. no acute distress. Eyes: Pupils equal and round no pallor or injection. ENT, Mouth: Mucous membranes are moist. Respiratory: There are no retractions, lungs are clear to auscultation. Cardiovascular: Regular rate and rhythm. No murmurs gallops or rubs Gastrointestinal: Abdomen is soft and non tender, no masses, bowel sounds normal. Neurological: Normal neurological exam Skin: Warm and dry, no rashes. No warmth or erythema overlying the affected extremity Musculoskeletal: Neck is supple non tender. Extremities are nontender, nonswollen and have full range of motion. No edema, calf circumferences were symmetrical upon gross exam. DIFFERENTIAL DIAGNOSIS/MDM: After history and physical exam differential diagnosis was considered for cellulitis, DVT, low risk, radiculopathy; no signs of PE, OK or other serious process. Medical Decision Making Data Points Result Diagram: 06/11/17 0930 06/11/17 0930 Laboratory Hematology Test 06/11/17 09:30 06/11/17 10:05 Red Blood Count 4.84 M/uL (4.17-5.56) Mean Corpuscular Volume 89.8 fL (80.0-96.0) Mean Corpuscular Hemoglobin 30.9 pg (26.0-33.0) Mean Corpuscular Hemoglobin Concent 34.3 g/dL (32.0-36.0) Red Cell Distribution Width 13.1 % (11.5-14.5) Mean Platelet Volume 7.9 fL (7.2-11.1) Neutrophils (%) (Auto) 70.1 % (39.4-72.5) Lymphocytes (%) (Auto) 22.7 % (17.6-49.6) Monocytes (%) (Auto) 4.6 % (4.1-12.4) Eosinophils (%) (Auto) 1.9 % (0.4-6.7) Basophils (%) (Auto) 0.7 % (0.3-1.4) Nucleated RBC Relative Count (auto) 0.0 /100WBC Neutrophils # (Auto) 5.5 K/uL (2.0-7.4) Lymphocytes # (Auto) 1.8 K/uL (1.3-3.6) Monocytes # (Auto) 0.4 K/uL (0.3-1.0) Eosinophils # (Auto) 0.1 K/uL (0.0-0.5) Basophils # (Auto) 0.1 K/uL (0.0-0.1) Nucleated RBC Absolute Count (auto) 0.00 K/uL D-Dimer Quantitative (PE/DVT) < 0.27 ug/ml (0-0.50) Sodium Level 139 mmol/L (137-145) Potassium Level 3.9 mmol/L (3.5-5.0) Chloride Level 101 mmol/L (98-107) Carbon Dioxide Level 28 mmol/L (22-31) Blood Urea Nitrogen 10 mg/dl (7-18) Creatinine 0.70 mg/dl (0.52-1.04) Glomerular Filtration Rate Calc > 60.0 Random Glucose 92 mg/dl (75-110) Calcium Level 9.1 mg/dl (8.4-10.2) Total Bilirubin 0.4 mg/dl (0.2-1.3) Aspartate Amino Transf (AST/SGOT) 24 U/L (0-35) Alanine Aminotransferase (ALT/SGPT) 37 U/L (0-56) Alkaline Phosphatase 85 U/L (0-126) Troponin I < 0.012 ng/ml B-Type Natriuretic Peptide 6 pg/ml (0-100) Total Protein 7.8 gm/dl (6.3-8.2) Albumin 4.3 g/dl (3.5-5.0) Influenza Virus Type A (PCR) Negative (NEGATIVE) Influenza Virus Type B (PCR) Negative (NEGATIVE) Chemistry Test 06/11/17 09:30 06/11/17 10:05 White Blood Count 7.9 k/uL (4.5-11.0) Red Blood Count 4.84 M/uL (4.17-5.56) Hemoglobin 14.9 g/dL (12.0-16.0) Hematocrit 43.5 % (34.0-47.0) Mean Corpuscular Volume 89.8 fL (80.0-96.0) Mean Corpuscular Hemoglobin 30.9 pg (26.0-33.0) Mean Corpuscular Hemoglobin Concent 34.3 g/dL (32.0-36.0) Red Cell Distribution Width 13.1 % (11.5-14.5) Platelet Count 282 K/uL (150-450) Mean Platelet Volume 7.9 fL (7.2-11.1) Neutrophils (%) (Auto) 70.1 % (39.4-72.5) Lymphocytes (%) (Auto) 22.7 % (17.6-49.6) Monocytes (%) (Auto) 4.6 % (4.1-12.4) Eosinophils (%) (Auto) 1.9 % (0.4-6.7) Basophils (%) (Auto) 0.7 % (0.3-1.4) Nucleated RBC Relative Count (auto) 0.0 /100WBC Neutrophils # (Auto) 5.5 K/uL (2.0-7.4) Lymphocytes # (Auto) 1.8 K/uL (1.3-3.6) Monocytes # (Auto) 0.4 K/uL (0.3-1.0) Eosinophils # (Auto) 0.1 K/uL (0.0-0.5) Basophils # (Auto) 0.1 K/uL (0.0-0.1) Nucleated RBC Absolute Count (auto) 0.00 K/uL D-Dimer Quantitative (PE/DVT) < 0.27 ug/ml (0-0.50) Glomerular Filtration Rate Calc > 60.0 Calcium Level 9.1 mg/dl (8.4-10.2) Total Bilirubin 0.4 mg/dl (0.2-1.3) Aspartate Amino Transf (AST/SGOT) 24 U/L (0-35) Alanine Aminotransferase (ALT/SGPT) 37 U/L (0-56) Alkaline Phosphatase 85 U/L (0-126) Troponin I < 0.012 ng/ml B-Type Natriuretic Peptide 6 pg/ml (0-100) Total Protein 7.8 gm/dl (6.3-8.2) Albumin 4.3 g/dl (3.5-5.0) Influenza Virus Type A (PCR) Negative (NEGATIVE) Influenza Virus Type B (PCR) Negative (NEGATIVE) Coagulation Test 06/11/17 09:30 D-Dimer Quantitative (PE/DVT) < 0.27 ug/ml EKG/Imaging EKG Interpretation EKG 06/11/2017 9:46 AM my read normal sinus rhythm ventricular rate of 86 normal ID QRS and QTc intervals no ST or T-wave changes to suggest acute infarction or ischemia. Of note inverted T waves are present on lead 3 and V3 with some flattening laterally. A comparison was made with EKG dated 05/20/2017. Imaging Negative chest x-ray ED Course/Re-evaluation ED Course Plan of care was discussed and agreed upon prior to orders placed Re-evaluation Patient requested pain medication for her left lower extremity which is also numb and tingling. Decision to Disposition Date: Jun 11, 2017 Decision to Disposition Time: 12:00 Depart Departure Latest Vital Signs Vital Signs Date Time Temp Pulse Resp B/P (MAP) Pulse Ox O2 Delivery O2 Flow Rate FiO2 06/11/17 11:40 91 96 06/11/17 11:30 120/92 (101) 06/11/17 09:22 98.5 18 Room Air Impression: Primary Impression: Pain of left lower extremity Additional Impression: Radiculopathy of leg Condition: Improved Disposition: HOME OR SELF-CARE Referrals: BASSAM HOWELL (PCP) New Scripts Prednisone (PREDNISONE) 20 Mg Tablet 40 MG PO DAILY Y for ANXIETY for 5 Days, #10 TAB Prov: RYAN HUNT MD 06/11/17 Cyclobenzaprine Hcl (CYCLOBENZAPRINE HCL) 10 Mg Tablet 10 MG PO Q8H Y for MUSCLE SPASMS, #20 TAB 0 Refills Prov: RYAN HUNT MD 06/11/17 Patient Instructions: Lumbar Radiculopathy (ED) Problem Qualifiers RYAN HUNT MD Jun 11, 2017 09:42
[2017-06-11 09:52] LABS: PLATELET COUNT, AUTOMATED 282 K/uL (150-450)
--- NOTE | 2017-06-11 09:59 | EKG ---
FACILITY: [facility] - [place] PATIENT NAME: EM SOTO : [id number] MR: [id number] V: [id number] EXAM DATE: ORDERING PHYSICIAN: RYAN HUNT TECHNOLOGIST: NELDA Olivares Reason : BLOOD CLOT? Blood Pressure : / mmHG Vent. Rate : 086 BPM Atrial Rate : 086 BPM P-R Int : 136 ms QRS Dur : 076 ms QT Int : 380 ms P-R-T Axes : 046 002 -02 degrees QTc Int : 454 ms Sinus rhythm Decreased R wave progression anteriorly Borderline left axis Nonspecific T wave findings Abnormal ECG Confirmed by CHASE GOULD ([id number]) on 06/11/2017 3:46:34 PM Referred By: MARILEE Confirmed By:CHASE GOULD
--- NOTE | 2017-06-11 10:01 | RADIOLOGY IMAGING REPORT ---
FACILITY: PATIENT NAME: Emelina Dalal : 1990 MR: [id number] V: [id number] EXAM DATE: ORDERING PHYSICIAN: RYAN HUNT TECHNOLOGIST: Location: [facility] Patient: Emelina Dalal : 1990 Visit/Account:[id number] Date of Sevice: 06/11/2017 CHEST SINGLE AP HISTORY: Wheezing. Dyspnea. Edema. COMPARISON: Chest x-ray May 17, 2017. FINDINGS: Cardiomediastinal contours: Normal Lungs and pleura: Lung volumes are low and there is crowding of vasculature in the bases but there is no discrete infiltrate. Bones/soft tissues: There are no findings of a fracture. IMPRESSION: 1. Lung volumes are low. This results in crowding of vasculature in the lung bases. 2. There is no infiltrate. Report Dictated By: Jarrett Clark MD at 06/11/2017 9:57 AM Report E-Signed By: Jarrett Clark MD at 06/11/2017 9:58 AM [id number]
[2017-06-11] MEDS ORDERED: OLAN10TA25 PO (10:16)
[2017-06-11] MEDS ORDERED: ONDANSETRON 4 MG ODT TABDP SL ONE (10:20)
[2017-06-11 12:00] VITALS: BP 131/97
[2017-06-11] MEDS ORDERED: MORPHINE 4 MG/ML SDV IVP ONE (12:00)
[2017-06-11] MEDS ORDERED: PRED20TA6 PO (12:01)
[2017-06-11] MEDS ORDERED: CYCL10TA29 PO (12:01)
== END 2017-06-11 12:30 | disposition home or self-care (01) ==
LOC: ER 09:33
DX: M54.10 Radiculopathy, site unspecified (principal); R06.00 Dyspnea, unspecified
CPT/HCPCS: 71045; 83880; 84484; 85025; 85379; 87502; 93005; 96360; 99284; J2270; S0119; 82040; 82247; 82310; 82374; 82435; 82565; 82947; 84075; 84132; 84155; 84295; 84450; 84460; 84520

== ENCOUNTER 2017-06-12 17:40 | Emergency (ER) | payer OTHER ==
[2015-04-10 13:34] VITALS: Wt 90.7 kg
[~2017-06-12 17:40] MED LIST changes: +AMIL5TAB11 PO
[2017-06-12 18:42] VITALS: BP 132/90
--- NOTE | 2017-06-12 18:48 | ER Report ---
History and Physical Time Seen By MD: 18:48 Hx. of Stated Complaint: painful lower left leg between knee and ankle HPI/ROS CHIEF COMPLAINT: Left lower extremity pain HISTORY OF PRESENT ILLNESS: 26-year-old female patient presents to emergency room with complaint of left lower extremity pain. Patient states she has had swelling and pain to the left lower leg for the past several days. She states she was seen in the emergency room yesterday and was discharged home on steroids. She states the pain has worsened. She states she had significant swelling. She denies having any injury to the leg. She denies any fevers, chills , nausea, vomiting or diarrhea. She has having any shortness of breath. Patient states that she is taken ibuprofen for this with no improvement. She denies having any fevers. She states that the leg does seem slightly erythematous, she does some bruising to the foot earlier today. States the pain is worse with activity, although she does have some throbbing when she sits. REVIEW OF SYSTEMS: Respiratory: No cough, no dyspnea. Cardiovascular: No chest pain, no palpitations. Gastrointestinal: No vomiting, no abdominal pain. Musculoskeletal: No back pain. Allergies: Coded Allergies: fluconazole (Verified Allergy, Severe, 06/11/17) "KIDNEYS NEARLY SHUT DOWN" zolpidem (Verified Allergy, Intermediate, 06/11/17) latex (Verified Allergy, Mild, RASH, 06/11/17) promethazine (Verified Allergy, Mild, HIVES, 06/11/17) aripiprazole (Verified Allergy, Unknown, MENTAL STATUS CHANGES, 06/11/17) iron (Verified Allergy, Unknown, DIARRHEA, HIVES, SOB, 06/11/17) Home Meds Active Scripts Prednisone (PREDNISONE) 20 Mg Tablet, 40 MG PO DAILY Y for ANXIETY for 5 Days, # 10 TAB Prov:RYAN HUNT MD 06/11/17 Cyclobenzaprine Hcl (CYCLOBENZAPRINE HCL) 10 Mg Tablet, 10 MG PO Q8H Y for MUSCLE SPASMS, #20 TAB 0 Refills Prov:RYAN HUNT MD 06/11/17 Reported Medications Olanzapine (OLANZAPINE) 10 Mg Tablet, 10 MG PO QDAY 06/11/17 Pantoprazole Sodium (PANTOPRAZOLE SODIUM) 40 Mg Tablet.dr, 40 MG PO QDAY, TAB.SR 06/11/17 Amiloride Hcl (AMILORIDE HCL) 5 Mg Tablet, 5 MG PO QDAY 06/11/17 Losartan Potassium (LOSARTAN POTASSIUM) 50 Mg Tablet, 50 MG PO QDAY 05/23/17 Metoprolol Succinate (METOPROLOL SUCCINATE) 25 Mg Tab.er.24h, 1 TAB PO QDAY, TAB 05/17/17 Levothyroxine Sodium (SYNTHROID) 112 Mcg Tablet, 125 MCG PO QDAY, TAB 02/26/17 Duloxetine Hcl (CYMBALTA) 20 Mg Capcr, 60 MG PO QDAY, #5 CAP 02/26/17 Discontinued Reported Medications Spironolactone (SPIRONOLACTONE) 25 Mg Tablet, 25 MG PO, TAB 05/23/17 Olanzapine (OLANZAPINE) 10 Mg Tablet, 10 MG PO HS 05/17/17 Discontinued Scripts Ondansetron (ZOFRAN ODT) 4 Mg Tab.rapdis, 4 MG PO every 6 hours Y for NAUSEA/ VOMITING, #10 TAB TAKE 1 TABLET BY MOUTH EVERY 12 HOURS Prov:LAZARO BOYD Nataliia DO 05/23/17 Past Medical/Surgical History Patient has a past medical history of migraines, hypertension, asthma, pneumonia , reflux, cholecystitis, hypothyroidism, depression, anxiety, bipolar, suicide attempt. Patient has a surgical history of left shoulder surgery, tubal ligation, hysterectomy, ectopic , cholecystectomy, appendectomy. Patient has a family medical history of psychiatric problems, diabetes, stroke, CAD, cancer. Reviewed Nurses Notes: Yes Hx Smoking: No Smoking Status: Never Smoker Hx Substance Use Disorder: No Hx Alcohol Use: No Constitutional Vital Sign - Last 24 Hours 06/12/17 06/12/17 17:49 18:42 Temp 98.3 98.1 Pulse 99 97 Resp 14 14 B/P (MAP) 158/98 132/90 (104) Pulse Ox 95 98 O2 Delivery Room Air Room Air Physical Exam General Appearance: The patient is alert, has no immediate need for airway protection and no current signs of toxicity. Respiratory: Chest is non tender, lungs are clear to auscultation. Cardiac: regular rate and rhythm Gastrointestinal: Abdomen is soft and non tender, no masses, bowel sounds normal. Musculoskeletal: Neck: Neck is supple and non tender. Extremities have full range of motion and are non tender. She does have some swelling to the left lower leg, no obvious bruising noted. Patient had good range of motion and the pain with dorsiflexion of the foot. Skin: No rashes or lesions. DIFFERENTIAL DIAGNOSIS: After history and physical exam differential diagnosis was considered for catheter Strain, contusion, DVT. Medical Decision Making Data Points Result Diagram: 06/12/17191806/12/171918 Laboratory Hematology Test 06/12/17 19:19 Red Blood Count 4.81 M/uL (4.17-5.56) Mean Corpuscular Volume 90.3 fL (80.0-96.0) Mean Corpuscular Hemoglobin 30.7 pg (26.0-33.0) Mean Corpuscular Hemoglobin Concent 34.0 g/dL (32.0-36.0) Red Cell Distribution Width 12.9 % (11.5-14.5) Mean Platelet Volume 8.2 fL (7.2-11.1) Neutrophils (%) (Auto) 90.8 % (39.4-72.5) Lymphocytes (%) (Auto) 5.0 % (17.6-49.6) Monocytes (%) (Auto) 2.9 % (4.1-12.4) Eosinophils (%) (Auto) 0.0 % (0.4-6.7) Basophils (%) (Auto) 1.3 % (0.3-1.4) Nucleated RBC Relative Count (auto) 0.0 /100WBC Neutrophils # (Auto) 13.3 K/uL (2.0-7.4) Lymphocytes # (Auto) 0.7 K/uL (1.3-3.6) Monocytes # (Auto) 0.4 K/uL (0.3-1.0) Eosinophils # (Auto) 0.0 K/uL (0.0-0.5) Basophils # (Auto) 0.2 K/uL (0.0-0.1) Nucleated RBC Absolute Count (auto) 0.00 K/uL Peripheral Blood Smear Yes Y/N Prothrombin Time 12.8 seconds (12.0-14.4) Prothromb Time International Ratio 0.97 Activated Partial Thromboplast Time 27 seconds (23-35) Sodium Level 143 mmol/L (137-145) Potassium Level 4.1 mmol/L (3.5-5.0) Chloride Level 103 mmol/L (98-107) Carbon Dioxide Level 23 mmol/L (22-31) Blood Urea Nitrogen 13 mg/dl (7-18) Creatinine 0.80 mg/dl (0.52-1.04) Glomerular Filtration Rate Calc > 60.0 Random Glucose 126 mg/dl (75-110) Calcium Level 9.5 mg/dl (8.4-10.2) Total Bilirubin 0.3 mg/dl (0.2-1.3) Aspartate Amino Transf (AST/SGOT) 27 U/L (0-35) Alanine Aminotransferase (ALT/SGPT) 38 U/L (0-56) Alkaline Phosphatase 86 U/L (0-126) Total Protein 8.0 gm/dl (6.3-8.2) Albumin 4.5 g/dl (3.5-5.0) Chemistry Test 06/12/17 19:19 White Blood Count 14.7 k/uL (4.5-11.0) Red Blood Count 4.81 M/uL (4.17-5.56) Hemoglobin 14.7 g/dL (12.0-16.0) Hematocrit 43.4 % (34.0-47.0) Mean Corpuscular Volume 90.3 fL (80.0-96.0) Mean Corpuscular Hemoglobin 30.7 pg (26.0-33.0) Mean Corpuscular Hemoglobin Concent 34.0 g/dL (32.0-36.0) Red Cell Distribution Width 12.9 % (11.5-14.5) Platelet Count 306 K/uL (150-450) Mean Platelet Volume 8.2 fL (7.2-11.1) Neutrophils (%) (Auto) 90.8 % (39.4-72.5) Lymphocytes (%) (Auto) 5.0 % (17.6-49.6) Monocytes (%) (Auto) 2.9 % (4.1-12.4) Eosinophils (%) (Auto) 0.0 % (0.4-6.7) Basophils (%) (Auto) 1.3 % (0.3-1.4) Nucleated RBC Relative Count (auto) 0.0 /100WBC Neutrophils # (Auto) 13.3 K/uL (2.0-7.4) Lymphocytes # (Auto) 0.7 K/uL (1.3-3.6) Monocytes # (Auto) 0.4 K/uL (0.3-1.0) Eosinophils # (Auto) 0.0 K/uL (0.0-0.5) Basophils # (Auto) 0.2 K/uL (0.0-0.1) Nucleated RBC Absolute Count (auto) 0.00 K/uL Peripheral Blood Smear Yes Y/N Prothrombin Time 12.8 seconds (12.0-14.4) Prothromb Time International Ratio 0.97 Activated Partial Thromboplast Time 27 seconds (23-35) Glomerular Filtration Rate Calc > 60.0 Calcium Level 9.5 mg/dl (8.4-10.2) Total Bilirubin 0.3 mg/dl (0.2-1.3) Aspartate Amino Transf (AST/SGOT) 27 U/L (0-35) Alanine Aminotransferase (ALT/SGPT) 38 U/L (0-56) Alkaline Phosphatase 86 U/L (0-126) Total Protein 8.0 gm/dl (6.3-8.2) Albumin 4.5 g/dl (3.5-5.0) Coagulation Test 06/12/17 19:19 Prothrombin Time 12.8 seconds Prothromb Time International Ratio 0.97 Activated Partial Thromboplast Time 27 seconds EKG/Imaging Imaging EXAMINATION: Left Lower Extremity Venous Ultrasound HISTORY: Pain and swelling. TECHNIQUE: Ultrasound evaluation of the left lower extremity veins was performed with color and spectral Doppler and compression views. COMPARISON: None. FINDINGS: The left common femoral, femoral, proximal deep femoral, popliteal, and segmentally visualized deep calf veins are patent and compressible, without evidence of intraluminal thrombus. The visualized upper greater saphenous vein is patent. IMPRESSION: Normal exam. No evidence of DVT in the left leg. Report Dictated By: Olu Tafoya MD at 06/12/2017 8:40 PM Report E-Signed By: Olu Tafoya MD at 06/12/2017 8:44 PM ED Course/Re-evaluation ED Course Patient was admitted to exam room, history and physical were obtained. Differential diagnoses were considered. Due to the workup the patient had yesterday a ultrasound was done a repeat CBC, CMP and coag levels. The coag levels were normal. CBC showed an elevated white count of 14,000 with left shift. I believe that is likely due to the patient being placed on steroids yesterday causing the margination of the white blood cells. CMP showed elevated glucose level which again is probably related to the prednisone. Ultrasound of the left leg was negative, I did discuss this with the ultrasound technol noted that patient had tenderness with exam everywhere that she pushed. Based on my exam I feel that the calf is likely the cause of our difficulty. I believe that she may have injured the calf muscle through her work. She will be discharged home this time. We will place her on crutches. We will have her limit weightbearing to the leg. We will give her a excuse for work for the next 3 days. She is to follow-up with primary care provider next week. She is to return to emergency room if condition worsens. Patient and her mother verbalized understanding and agreement with plan. Decision to Disposition Date: Jun 12, 2017 Decision to Disposition Time: 21:16 Depart Departure Latest Vital Signs Vital Signs Date Time Temp Pulse Resp B/P (MAP) Pulse Ox O2 Delivery O2 Flow Rate FiO2 06/12/17 18:42 98.1 97 14 132/90 (104) 98 Room Air Impression: Primary Impression: Strain of calf muscle Condition: Improved Disposition: HOME OR SELF-CARE Referrals: JANNA PORTER (PCP) Patient Instructions: Muscle Strain (ED) Additional Instructions: Continue with your current medications. Use the crutches when you are up moving around. Ice the calf muscle. Follow up with Janna Porter next week. 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 Return to the ER if condition worsens. Problem Qualifiers Primary Impression: Strain of calf muscle Encounter type: initial encounter Laterality: left Qualified Codes: S86.812A - Strain of other muscle(s) and tendon(s) at lower leg level, left leg , initial encounter MERRILL JUAREZ Jun 12, 2017 18:48
[2017-06-12 19:30] LABS: PLATELET COUNT, AUTOMATED 306 K/uL (150-450)
[2017-06-12 19:34] LABS: INR 0.97
--- NOTE | 2017-06-12 20:49 | RADIOLOGY IMAGING REPORT ---
FACILITY: [facility] - [place] PATIENT NAME: Emelina Dalal : 1990 MR: [id number] V: [id number] EXAM DATE: ORDERING PHYSICIAN: MERRILL JUAREZ TECHNOLOGIST: Location: [facility] Patient: Emelina Dalal : 1990 Visit/Account:[id number] Date of Sevice: 06/12/2017 EXAMINATION: Left Lower Extremity Venous Ultrasound HISTORY: Pain and swelling. TECHNIQUE: Ultrasound evaluation of the left lower extremity veins was performed with color and spec tral Doppler and compression views. COMPARISON: None. FINDINGS: The left common femoral, femoral, proximal deep femoral, popliteal, and segmentally visualized deep c lola veins are patent and compressible, without evidence of intraluminal thrombus. The visualized upp er greater saphenous vein is patent. IMPRESSION: Normal exam. No evidence of DVT in the left leg. Report Dictated By: Olu Tafoya MD at 06/12/2017 8:40 PM Report E-Signed By: Olu Tafoya MD at 06/12/2017 8:44 PM WSN:[id number]
== END 2017-06-12 21:36 | disposition home or self-care (01) ==
LOC: ER 18:12
DX: S86.812A Strain of other muscle(s) and tendon(s) at lower leg level, left leg, initial encounter (principal)
CPT/HCPCS: 36415; 82040; 82247; 82310; 82374; 82435; 82565; 82947; 84075; 84132; 84155; 84295; 84450; 84460; 84520; 85025; 85610; 85730; 99284

== ENCOUNTER → 2017-06-18 | Outpatient (CLI) | payer OTHER ==
[2015-04-10 13:34] VITALS: BMI 30.0
== END ==
LOC: LAB 16:11
PROVIDERS: ATTEND Internal Medicine Endocrinology, Diabetes & Metabolism
DX: E89.0 Postprocedural hypothyroidism (principal)
CPT/HCPCS: 36415; 84439; 84443

== ENCOUNTER → 2017-06-18 | Outpatient (CLI) | payer OTHER ==
[2015-04-10 13:34] VITALS: BMI 30.0
--- NOTE | 2017-06-18 20:51 | RADIOLOGY IMAGING REPORT ---
FACILITY: [facility] - [place] PATIENT NAME: Emelina Dalal : 1990 MR: [id number] V: [id number] EXAM DATE: ORDERING PHYSICIAN: BASSAM HOWELL TECHNOLOGIST: [place] [facility] [place] Emelina Dalal : 1990 Visit/Account:[id number] Date of Sevice: 06/18/2017 KNEE 4 VIEW LEFT Indication: Swelling and pain for one week Comparison: Left knee radiograph 10/30/2005 Findings: Distal femur, proximal tibia and fibula, the patella demonstrate normal mineralization and alignment. Soft tissues are unremarkable. IMPRESSION: Normal left knee radiograph. Report Dictated By: Gil Frost at 06/18/2017 8:48 PM Report E-Signed By: Gil Frost at 06/18/2017 8:48 PM WSN:[id number]
== END ==
LOC: RAD 16:14
PROVIDERS: ATTEND Nurse Practitioner Family
DX: M25.562 Pain in left knee (principal); M25.462 Effusion, left knee
CPT/HCPCS: 73564

== ENCOUNTER 2017-07-14 10:25 | Emergency (ER) | payer OTHER ==
[2015-04-10 13:34] VITALS: Wt 90.7 kg
--- NOTE | 2017-07-14 10:29 | ER Report ---
History and Physical Time Seen By MD: 10:29 HPI/ROS Flu-like symptoms for days. Cough and congestion. No chest pain or SOB. Remainder of the 14 system rev: Yes Allergies: Coded Allergies: fluconazole (Verified Allergy, Severe, 06/11/17) "KIDNEYS NEARLY SHUT DOWN" zolpidem (Verified Allergy, Intermediate, 06/11/17) latex (Verified Allergy, Mild, RASH, 06/11/17) promethazine (Verified Allergy, Mild, HIVES, 06/11/17) aripiprazole (Verified Allergy, Unknown, MENTAL STATUS CHANGES, 06/11/17) iron (Verified Allergy, Unknown, DIARRHEA, HIVES, SOB, 06/11/17) Home Meds Active Scripts Prednisone (PREDNISONE) 20 Mg Tablet, 40 MG PO DAILY Y for ANXIETY for 5 Days, # 10 TAB Prov:RYAN HUNT MD 06/11/17 Cyclobenzaprine Hcl (CYCLOBENZAPRINE HCL) 10 Mg Tablet, 10 MG PO Q8H Y for MUSCLE SPASMS, #20 TAB 0 Refills Prov:RYAN HUNT MD 06/11/17 Reported Medications Amoxicillin 500 Mg Tab (AMOXICILLIN 500 MG TAB) 500 Mg Tablet, 2 TAB PO Q12H, # 20 TAB 07/14/17 Olanzapine (OLANZAPINE) 10 Mg Tablet, 10 MG PO QDAY 06/11/17 Pantoprazole Sodium (PANTOPRAZOLE SODIUM) 40 Mg Tablet.dr, 40 MG PO QDAY, TAB.SR 06/11/17 Amiloride Hcl (AMILORIDE HCL) 5 Mg Tablet, 5 MG PO QDAY 06/11/17 Losartan Potassium (LOSARTAN POTASSIUM) 50 Mg Tablet, 50 MG PO QDAY 05/23/17 Metoprolol Succinate (METOPROLOL SUCCINATE) 25 Mg Tab.er.24h, 1 TAB PO QDAY, TAB 05/17/17 Levothyroxine Sodium (SYNTHROID) 112 Mcg Tablet, 125 MCG PO QDAY, TAB 02/26/17 Duloxetine Hcl (CYMBALTA) 20 Mg Capcr, 60 MG PO QDAY, #5 CAP 02/26/17 Reviewed Nurses Notes: Yes Old Medical Records Reviewed: Yes Hx Smoking: No Smoking Status: Never Smoker Hx Substance Use Disorder: No Hx Alcohol Use: No Constitutional Physical Exam GE: Alert and oriented, NAD HEENT: PERRL, EOMI CV: RRR, no m/r/g Lungs: cta b/l Abdomen: soft, NTND Medical Decision Making ED Course/Re-evaluation ED Course No chest pain, SOB, abdominal pain. SYmptoms c/w URI/viral syndrome. Will d/c with meds for supportive care. Decision to Disposition Date: Jul 14, 2017 Decision to Disposition Time: 11:33 Depart Departure Latest Vital Signs Impression: Primary Impression: Viral syndrome Condition: Improved Disposition: HOME OR SELF-CARE Referrals: BASSAM HOWELL (PCP) Patient Instructions: Viral Syndrome (DC) JAMIE MORA MD Jul 14, 2017 10:29
[2017-07-14] MEDS ORDERED: AMOX500T10 PO (10:35)
[2017-07-14] MEDS ORDERED: ALBUTEROL/IPRATROPIUM 3 ML NEB NEB ONE (10:40)
[2017-07-14] MEDS ORDERED: guaiFENesin 600 MG TABCR PO SCH (10:40)
[2017-07-14 11:30] VITALS: BP 115/91
== END 2017-07-14 11:42 | disposition home or self-care (01) ==
LOC: ER 10:37
DX: B34.9 Viral infection, unspecified (principal)
CPT/HCPCS: 94640; 99283; J7620

== ENCOUNTER 2017-07-27 20:16 | Emergency (ER) | payer OTHER ==
[2015-04-10 13:34] VITALS: Wt 90.7 kg
[~2017-07-27 20:16] MED LIST changes: +AMOX500T10 PO
--- NOTE | 2017-07-27 20:19 | ER Report ---
History and Physical Time Seen By MD: 20:21 HPI/ROS CHIEF COMPLAINT: Left eye injury HISTORY OF PRESENT ILLNESS: 27-year-old female states her [place] dog jumped striking her in the left side of her face. She was knocked to the ground. She is complaining of eye pain and blurry vision. She denies LOC or neck pain. She denies nausea or vomiting. She notes some tearing from her left eye. She say she felt a popping sensation when he had her face. There is no obvious facial bruising, swelling or abrasions. REVIEW OF SYSTEMS: Respiratory: No cough, no dyspnea. Cardiovascular: No chest pain, no palpitations. Gastrointestinal: No vomiting, no abdominal pain. Musculoskeletal: No back pain. Allergies: Coded Allergies: fluconazole (Verified Allergy, Severe, 07/27/17) "KIDNEYS NEARLY SHUT DOWN" zolpidem (Verified Allergy, Intermediate, 07/27/17) latex (Verified Allergy, Mild, RASH, 07/27/17) promethazine (Verified Allergy, Mild, HIVES, 07/27/17) aripiprazole (Verified Allergy, Unknown, MENTAL STATUS CHANGES, 07/27/17) iron (Verified Allergy, Unknown, DIARRHEA, HIVES, SOB, 07/27/17) Home Meds Reported Medications Levothyroxine Sodium (LEVOTHYROXINE SODIUM) 137 Mcg Tablet, 137 MCG PO QDAY 07/27/17 Olanzapine (OLANZAPINE) 10 Mg Tablet, 10 MG PO QDAY 06/11/17 Pantoprazole Sodium (PANTOPRAZOLE SODIUM) 40 Mg Tablet.dr, 40 MG PO QDAY, TAB.SR 06/11/17 Amiloride Hcl (AMILORIDE HCL) 5 Mg Tablet, 5 MG PO QDAY 06/11/17 Losartan Potassium (LOSARTAN POTASSIUM) 50 Mg Tablet, 50 MG PO QDAY 05/23/17 Metoprolol Succinate (METOPROLOL SUCCINATE) 25 Mg Tab.er.24h, 1 TAB PO QDAY, TAB 05/17/17 Duloxetine Hcl (CYMBALTA) 20 Mg Capcr, 60 MG PO QDAY, #5 CAP 02/26/17 Discontinued Reported Medications Amoxicillin 500 Mg Tab (AMOXICILLIN 500 MG TAB) 500 Mg Tablet, 2 TAB PO Q12H, # 20 TAB 07/14/17 Levothyroxine Sodium (SYNTHROID) 112 Mcg Tablet, 125 MCG PO QDAY, TAB 02/26/17 Discontinued Scripts Prednisone (PREDNISONE) 20 Mg Tablet, 40 MG PO DAILY Y for ANXIETY for 5 Days, # 10 TAB Prov:RYAN HUNT MD 06/11/17 Cyclobenzaprine Hcl (CYCLOBENZAPRINE HCL) 10 Mg Tablet, 10 MG PO Q8H Y for MUSCLE SPASMS, #20 TAB 0 Refills Prov:RYAN HUNT MD 06/11/17 Reviewed Nurses Notes: Yes Old Medical Records Reviewed: Yes Hx Smoking: No Smoking Status: Never Smoker Hx Substance Use Disorder: No Hx Alcohol Use: No Constitutional Vital Sign - Last 24 Hours 07/27/17 20:20 Temp 98.9 Pulse 99 Resp 20 B/P (MAP) 127/95 Pulse Ox 95 O2 Delivery Room Air Physical Exam General Appearance: The patient is alert, has no immediate need for airway protection and no current signs of toxicity.. Vital signs stable, afebrile, pulse ox normal, visual acuity noted HEENT: Pupils equal and round no injection. TMs normal, facial bones intact on palpation. There is minimal tenderness around the left orbit. There is no ecchymosis, soft tissue swelling or hematoma noted. Patient has nontender TMJs. There is normal bite alignment per patient. Recollection. Floor seen is instilled in the left eye. There are no corneal abrasions noted. Slit-lamp was used to view the anterior and posterior chambers. There is no evidence of pathology noted. Respiratory: Chest is non tender, lungs are clear to auscultation. No chest wall tenderness Cardiac: regular rate and rhythm Gastrointestinal: Abdomen is soft and non tender, no masses, bowel sounds normal. Musculoskeletal: Neck: Neck is supple and non tender. No tenderness in the midline Extremities have full range of motion and are non tender. No evidence of trauma Skin: No rashes or lesions. DIFFERENTIAL DIAGNOSIS: After history and physical exam differential diagnosis was considered for head injury including but not limited to concussion, skull fracture, intraparenchymal contusion, subarachnoid, subdural and epidural hematoma. Facial contusion, eye contusion, orbital fracture Medical Decision Making ED Course/Re-evaluation ED Course Patient was admitted to an examination room. H&P was done. The differential diagnosis was considered. On conical examination, patient is no obvious facial trauma noted. She's complaining of eye pain. She does have blurry vision from that eye. Visual acuity showed significantly decreased vision, but she did not bring her corrective lenses. Fluoresceins instilled in the eye. There is no corneal abrasions. Patient because she has a head injury is advised conservative treatment with Tylenol and ibuprofen. She is advised to use artificial tears to keep her eye moist and sooth. She is advised to apply an ice pack to the affected area. She is advised to follow-up with Dr. Tobar ophthalmology if she continues to have problems with her eye. Decision to Disposition Date: Jul 27, 2017 Decision to Disposition Time: 20:42 Depart Departure Latest Vital Signs Vital Signs Date Time Temp Pulse Resp B/P (MAP) Pulse Ox O2 Delivery O2 Flow Rate FiO2 07/27/17 20:20 98.9 99 20 127/95 95 Room Air Impression: Primary Impression: Contusion, eye, left Additional Impression: Facial contusion Condition: Improved Disposition: HOME OR SELF-CARE Referrals: BASSAM HOWELL (PCP) CARMELLA PAULSON MD Patient Instructions: Contusion in Adults (ED) Additional Instructions: Use Tylenol and ibuprofen for pain relief Follow-up with your primary care if unimproved in 2-4 days History of have any continued eye problems. Follow-up with Dr. Carmella Tobar Problem Qualifiers Primary Impression: Contusion, eye, left Encounter type: initial encounter Qualified Codes: S05.12XA - Contusion of eyeball and orbital tissues, left eye, initial encounter Additional Impression: Facial contusion Encounter type: initial encounter Qualified Codes: S00.83XA - Contusion of other part of head, initial encounter LAZARO BOYD DO Jul 27, 2017 20:19
[2017-07-27 20:20] VITALS: BP 127/95
[2017-07-27] MEDS ORDERED: LEVO137T23 PO (20:25)
[2017-07-27] MEDS ORDERED: FLUORESCEIN SOD 1 MG 1 EA STRP OS ONE (20:30)
[2017-07-27] MEDS ORDERED: PROPARACAINE 0.5% OP 15ML BTL OS ONE (20:30)
== END 2017-07-27 20:48 | disposition home or self-care (01) ==
LOC: ER 20:19
DX: S05.12XA Contusion of eyeball and orbital tissues, left eye, initial encounter (principal); S00.83XA Contusion of other part of head, initial encounter; W54.1XXA Struck by dog, initial encounter
CPT/HCPCS: 99283

== ENCOUNTER → 2017-08-09 | Outpatient (CLI) | payer OTHER ==
[2015-04-10 13:34] VITALS: BMI 30.0
[~2017-08-09] MED LIST changes: +LEVO137T23 PO
[2017-08-09 14:41] LABS: PLATELET COUNT, AUTOMATED 266 K/uL (150-450)
[2017-08-09 14:57] LABS: LDL CHOLESTEROL 116 mg/dl
== END ==
LOC: LAB 14:24
PROVIDERS: ATTEND Nurse Practitioner Family
DX: I10 Essential (primary) hypertension (principal); R73.01 Impaired fasting glucose; E61.1 Iron deficiency; E04.1 Nontoxic single thyroid nodule; Z91.14 Patient's other noncompliance with medication regimen; D51.0 Vitamin B12 deficiency anemia due to intrinsic factor deficiency; E28.2 Polycystic ovarian syndrome; E05.00 Thyrotoxicosis with diffuse goiter without thyrotoxic crisis or storm
CPT/HCPCS: 36415; 82040; 82247; 82306; 82310; 82374; 82435; 82465; 82565; 82607; 82947; 83718; 84075; 84132; 84155; 84295; 84450; 84460; 84478; 84520; 85025

== ENCOUNTER → 2017-08-15 | Outpatient (CLI) | payer OTHER ==
[2015-04-10 13:34] VITALS: BMI 30.0
== END ==
LOC: LAB 11:52
PROVIDERS: ATTEND Nurse Practitioner Pediatrics
DX: F25.0 Schizoaffective disorder, bipolar type (principal)
CPT/HCPCS: 36415; 82040; 82247; 82248; 84075; 84146; 84155; 84450; 84460

== ENCOUNTER → 2017-09-03 | Outpatient (CLI) | payer OTHER ==
[2015-04-10 13:34] VITALS: BMI 30.0
== END ==
LOC: LAB 12:41
PROVIDERS: ATTEND Internal Medicine Endocrinology, Diabetes & Metabolism
DX: E05.90 Thyrotoxicosis, unspecified without thyrotoxic crisis or storm (principal); E04.2 Nontoxic multinodular goiter
CPT/HCPCS: 36415; 84443; 84481

== ENCOUNTER → 2017-09-07 | Outpatient (CLI) | payer OTHER ==
[2015-04-10 13:34] VITALS: BMI 30.0
== END ==
LOC: LAB 10:27
PROVIDERS: ATTEND Nurse Practitioner Pediatrics
DX: F25.0 Schizoaffective disorder, bipolar type (principal)
CPT/HCPCS: 36415; 80178

== ENCOUNTER → 2017-09-11 | Outpatient (CLI) | payer OTHER ==
[2015-04-10 13:34] VITALS: BMI 30.0
[2017-09-11 11:55] LABS: LDL CHOLESTEROL 180 mg/dl
== END ==
LOC: LAB 10:42
PROVIDERS: ATTEND Nurse Practitioner Family
DX: I10 Essential (primary) hypertension (principal); R63.5 Abnormal weight gain; K21.9 Gastro-esophageal reflux disease without esophagitis; R10.84 Generalized abdominal pain; G43.401 Hemiplegic migraine, not intractable, with status migrainosus; R73.01 Impaired fasting glucose; G47.00 Insomnia, unspecified; E61.1 Iron deficiency; R10.9 Unspecified abdominal pain; R53.83 Other fatigue; G43.809 Other migraine, not intractable, without status migrainosus; E04.1 Nontoxic single thyroid nodule; D51.0 Vitamin B12 deficiency anemia due to intrinsic factor deficiency; E28.2 Polycystic ovarian syndrome; E55.9 Vitamin D deficiency, unspecified; E53.8 Deficiency of other specified B group vitamins
CPT/HCPCS: 36415; 82040; 82247; 82306; 82310; 82374; 82435; 82465; 82565; 82607; 82728; 82947; 83718; 84075; 84132; 84155; 84295; 84443; 84450; 84460; 84478; 84520; 85027

== ENCOUNTER 2017-09-19 16:47 | Emergency (ER) | payer OTHER ==
[2015-04-10 13:34] VITALS: Wt 90.7 kg
[2017-09-19] MEDS ORDERED: QUET25TA30 PO (17:03)
[2017-09-19] MEDS ORDERED: ROSU5TAB8 PO (17:03)
[2017-09-19] MEDS ORDERED: LITH300T18 PO ×2 (17:03)
[2017-09-19] MEDS ORDERED: LEVO150T72 PO (17:03)
--- NOTE | 2017-09-19 17:12 | ER Report ---
History and Physical Time Seen By MD: 17:01 Hx. of Stated Complaint: Suicidal thoughts HPI/ROS CHIEF COMPLAINT: Suicidal ideation HISTORY OF PRESENT ILLNESS: 27-year-old female patient presents to emergency room with complaint of suicidal ideation. Patient states she's been having a hard time for the past several days. She has been having a difficult time sleeping. She states that she has had some thoughts of overdosing on her pills. She states she does have a history of overdosing on her medication. She states that her and her mental health care provider have tried medications of the last month, with no improvement. She states that she has only slept approximately 5 hours in the last several nights. She denies having any nausea, vomiting or diarrhea. Patient states she is has a difficult time controlling her thoughts. REVIEW OF SYSTEMS: Respiratory: No cough, no dyspnea. Cardiovascular: No chest pain, no palpitations. Gastrointestinal: No vomiting, no abdominal pain. Musculoskeletal: No back pain. Allergies: Coded Allergies: fluconazole (Verified Allergy, Severe, 07/27/17) "KIDNEYS NEARLY SHUT DOWN" zolpidem (Verified Allergy, Intermediate, 07/27/17) latex (Verified Allergy, Mild, RASH, 07/27/17) promethazine (Verified Allergy, Mild, HIVES, 07/27/17) aripiprazole (Verified Allergy, Unknown, MENTAL STATUS CHANGES, 07/27/17) iron (Verified Allergy, Unknown, DIARRHEA, HIVES, SOB, 07/27/17) Home Meds Reported Medications [place] Carbonate (LITHIUM CARBONATE) 300 Mg Tablet, 600 MG PO QHS 09/19/17 [place] Carbonate (LITHIUM CARBONATE) 300 Mg Tablet, 300 MG PO QDAY 09/19/17 Quetiapine Fumarate (SEROQUEL) 25 Mg Tablet, PO 09/19/17 Rosuvastatin Calcium (CRESTOR) 5 Mg Tablet, MG PO QDAY 09/19/17 Levothyroxine Sodium (SYNTHROID) 150 Mcg Tablet, 150 MCG PO QDAY 09/19/17 Losartan Potassium (LOSARTAN POTASSIUM) 50 Mg Tablet, 50 MG PO QDAY 05/23/17 Metoprolol Succinate (METOPROLOL SUCCINATE) 25 Mg Tab.er.24h, 2 TAB PO QDAY, TAB 05/17/17 Discontinued Reported Medications Levothyroxine Sodium (LEVOTHYROXINE SODIUM) 137 Mcg Tablet, 137 MCG PO QDAY 07/27/17 Olanzapine (OLANZAPINE) 10 Mg Tablet, 10 MG PO QDAY 06/11/17 Pantoprazole Sodium (PANTOPRAZOLE SODIUM) 40 Mg Tablet.dr, 40 MG PO QDAY, TAB.SR 06/11/17 Amiloride Hcl (AMILORIDE HCL) 5 Mg Tablet, 5 MG PO QDAY 06/11/17 Duloxetine Hcl (CYMBALTA) 20 Mg Capcr, 60 MG PO QDAY, #5 CAP 02/26/17 Past Medical/Surgical History Patient has a past medical history of migraines, hypertension, asthma, pneumonia , reflux, cholecystitis, depression, anxiety, bipolar, schizoaffective, suicide attempt. Patient has a surgical history of left shoulder surgery, tubal ligation, hysterectomy, ectopic , cholecystectomy, appendectomy. Patient has a family medical history of cancer, CAD, stroke, diabetes, psychiatric problems. Reviewed Nurses Notes: Yes Hx Smoking: No Smoking Status: Never Smoker Hx Substance Use Disorder: No Hx Alcohol Use: No Constitutional Vital Sign - Last 24 Hours 09/19/17 09/19/17 09/19/17 09/19/17 16:53 16:54 17:00 17:17 Temp 99.1 Pulse 99 97 Resp 18 B/P (MAP) 129/100 (110) 129/100 132/102 (112) Pulse Ox 95 93 O2 Delivery Room Air 09/19/17 09/19/17 09/19/17 09/19/17 17:30 17:47 18:00 18:17 Pulse 102 97 B/P (MAP) 129/91 (104) 123/93 (103) Pulse Ox 93 94 Physical Exam General Appearance: The patient is alert, has no immediate need for airway protection and no current signs of toxicity. ENT: Tympanic membranes are pearly-tyson, auditory canals are patent, mucus mucous membranes are moist. Respiratory: Chest is non tender, lungs are clear to auscultation. Cardiac: regular rate and rhythm Gastrointestinal: Abdomen is soft and non tender, no masses, bowel sounds normal. Musculoskeletal: Neck: Neck is supple and non tender. Extremities have full range of motion and are non tender. Skin: No rashes or lesions. Psych: Patient has appropriate rate of speech, she is able to maintain good eye contact. Patient is tearful during interview. DIFFERENTIAL DIAGNOSIS: After history and physical exam differential diagnosis was considered for hypothyroidism, depression, suicidal ideation. Medical Decision Making Data Points Result Diagram: 09/19/17 1714 09/19/17 1714 Laboratory Hematology Test 09/19/17 16:50 09/19/17 17:14 Urine Color Straw Urine Clarity Clear Urine pH 6.0 pH (4.8-9.5) Urine Specific [place] 1.015 Urine Protein Negative mg/dL (NEGATIVE) Urine Glucose (UA) Negative mg/dL (NEGATIVE) Urine Ketones Negative mg/dL (NEGATIVE) Urine Blood Negative (NEGATIVE) Urine Nitrite Negative (NEGATIVE) Urine Bilirubin Negative (NEGATIVE) Urine Urobilinogen Negative mg/dL (0.2-1.9) Urine Leukocyte Esterase Negative (NEGATIVE) Urine RBC <1 /HPF (0-2/HPF) Urine WBC <1 /HPF (0-5/HPF) Urine Squamous Epithelial Cells Moderate /LPF (</=FEW) Urine Bacteria Negative /HPF (NONE-FEW) Urine Mucus None /HPF (NONE-FEW) Urine HCG, Qualitative Negative (NEGATIVE) Urine Opiates Screen Negative Urine Barbiturates Screen Negative Ur Tricyclic Antidepressants Screen Negative Urine Phencyclidine Screen Negative Urine Amphetamines Screen Negative Urine Benzodiazepines Screen Negative Urine Cocaine Screen Negative Urine Cannabinoids Screen Negative Red Blood Count 4.61 M/uL (4.17-5.56) Mean Corpuscular Volume 91.6 fL (80.0-96.0) Mean Corpuscular Hemoglobin 32.1 pg (26.0-33.0) Mean Corpuscular Hemoglobin Concent 35.1 g/dL (32.0-36.0) Red Cell Distribution Width 12.7 % (11.5-14.5) Mean Platelet Volume 8.0 fL (7.2-11.1) Neutrophils (%) (Auto) 68.9 % (39.4-72.5) Lymphocytes (%) (Auto) 23.1 % (17.6-49.6) Monocytes (%) (Auto) 5.9 % (4.1-12.4) Eosinophils (%) (Auto) 1.5 % (0.4-6.7) Basophils (%) (Auto) 0.6 % (0.3-1.4) Nucleated RBC Relative Count (auto) 0.0 /100WBC Neutrophils # (Auto) 6.0 K/uL (2.0-7.4) Lymphocytes # (Auto) 2.0 K/uL (1.3-3.6) Monocytes # (Auto) 0.5 K/uL (0.3-1.0) Eosinophils # (Auto) 0.1 K/uL (0.0-0.5) Basophils # (Auto) 0.1 K/uL (0.0-0.1) Nucleated RBC Absolute Count (auto) 0.00 K/uL Sodium Level 140 mmol/L (137-145) Potassium Level 3.6 mmol/L (3.5-5.0) Chloride Level 101 mmol/L (98-107) Carbon Dioxide Level 22 mmol/L (22-31) Blood Urea Nitrogen 13 mg/dl (7-18) Creatinine 0.80 mg/dl (0.52-1.04) Glomerular Filtration Rate Calc > 60.0 Random Glucose 120 mg/dl (75-110) Calcium Level 9.5 mg/dl (8.4-10.2) Magnesium Level 1.9 mg/dl (1.7-2.2) Total Bilirubin 0.4 mg/dl (0.2-1.3) Aspartate Amino Transf (AST/SGOT) 29 U/L (0-35) Alanine Aminotransferase (ALT/SGPT) 47 U/L (0-56) Alkaline Phosphatase 76 U/L (0-126) Total Protein 8.0 g/dl (6.3-8.2) Albumin 4.5 g/dl (3.5-5.0) Salicylates Level < 10 mg/L Salicylate Last Dose Date unk Acetaminophen Level < 10 ug/ml Serum Alcohol < 10 mg/dl Chemistry Test 09/19/17 16:50 09/19/17 17:14 Urine Color Straw Urine Clarity Clear Urine pH 6.0 pH (4.8-9.5) Urine Specific [place] 1.015 Urine Protein Negative mg/dL (NEGATIVE) Urine Glucose (UA) Negative mg/dL (NEGATIVE) Urine Ketones Negative mg/dL (NEGATIVE) Urine Blood Negative (NEGATIVE) Urine Nitrite Negative (NEGATIVE) Urine Bilirubin Negative (NEGATIVE) Urine Urobilinogen Negative mg/dL (0.2-1.9) Urine Leukocyte Esterase Negative (NEGATIVE) Urine RBC <1 /HPF (0-2/HPF) Urine WBC <1 /HPF (0-5/HPF) Urine Squamous Epithelial Cells Moderate /LPF (</=FEW) Urine Bacteria Negative /HPF (NONE-FEW) Urine Mucus None /HPF (NONE-FEW) Urine HCG, Qualitative Negative (NEGATIVE) Urine Opiates Screen Negative Urine Barbiturates Screen Negative Ur Tricyclic Antidepressants Screen Negative Urine Phencyclidine Screen Negative Urine Amphetamines Screen Negative Urine Benzodiazepines Screen Negative Urine Cocaine Screen Negative Urine Cannabinoids Screen Negative White Blood Count 8.7 k/uL (4.5-11.0) Red Blood Count 4.61 M/uL (4.17-5.56) Hemoglobin 14.8 g/dL (12.0-16.0) Hematocrit 42.2 % (34.0-47.0) Mean Corpuscular Volume 91.6 fL (80.0-96.0) Mean Corpuscular Hemoglobin 32.1 pg (26.0-33.0) Mean Corpuscular Hemoglobin Concent 35.1 g/dL (32.0-36.0) Red Cell Distribution Width 12.7 % (11.5-14.5) Platelet Count 240 K/uL (150-450) Mean Platelet Volume 8.0 fL (7.2-11.1) Neutrophils (%) (Auto) 68.9 % (39.4-72.5) Lymphocytes (%) (Auto) 23.1 % (17.6-49.6) Monocytes (%) (Auto) 5.9 % (4.1-12.4) Eosinophils (%) (Auto) 1.5 % (0.4-6.7) Basophils (%) (Auto) 0.6 % (0.3-1.4) Nucleated RBC Relative Count (auto) 0.0 /100WBC Neutrophils # (Auto) 6.0 K/uL (2.0-7.4) Lymphocytes # (Auto) 2.0 K/uL (1.3-3.6) Monocytes # (Auto) 0.5 K/uL (0.3-1.0) Eosinophils # (Auto) 0.1 K/uL (0.0-0.5) Basophils # (Auto) 0.1 K/uL (0.0-0.1) Nucleated RBC Absolute Count (auto) 0.00 K/uL Glomerular Filtration Rate Calc > 60.0 Calcium Level 9.5 mg/dl (8.4-10.2) Magnesium Level 1.9 mg/dl (1.7-2.2) Total Bilirubin 0.4 mg/dl (0.2-1.3) Aspartate Amino Transf (AST/SGOT) 29 U/L (0-35) Alanine Aminotransferase (ALT/SGPT) 47 U/L (0-56) Alkaline Phosphatase 76 U/L (0-126) Total Protein 8.0 g/dl (6.3-8.2) Albumin 4.5 g/dl (3.5-5.0) Salicylates Level < 10 mg/L Salicylate Last Dose Date unk Acetaminophen Level < 10 ug/ml Serum Alcohol < 10 mg/dl Toxicology Test 09/19/17 16:50 09/19/17 17:14 Urine Opiates Screen Negative Urine Barbiturates Screen Negative Ur Tricyclic Antidepressants Screen Negative Urine Phencyclidine Screen Negative Urine Amphetamines Screen Negative Urine Benzodiazepines Screen Negative Urine Cocaine Screen Negative Urine Cannabinoids Screen Negative Salicylates Level < 10 mg/L Salicylate Last Dose Date unk Acetaminophen Level < 10 ug/ml Serum Alcohol < 10 mg/dl Urinalysis Test 09/19/17 16:50 Urine Color Straw Urine Clarity Clear Urine pH 6.0 pH (4.8-9.5) Urine Specific [place] 1.015 Urine Protein Negative mg/dL (NEGATIVE) Urine Glucose (UA) Negative mg/dL (NEGATIVE) Urine Ketones Negative mg/dL (NEGATIVE) Urine Blood Negative (NEGATIVE) Urine Nitrite Negative (NEGATIVE) Urine Bilirubin Negative (NEGATIVE) Urine Urobilinogen Negative mg/dL (0.2-1.9) Urine Leukocyte Esterase Negative (NEGATIVE) Urine RBC <1 /HPF (0-2/HPF) Urine WBC <1 /HPF (0-5/HPF) Urine Squamous Epithelial Cells Moderate /LPF (</=FEW) Urine Bacteria Negative /HPF (NONE-FEW) Urine Mucus None /HPF (NONE-FEW) Urine HCG, Qualitative Negative (NEGATIVE) ED Course/Re-evaluation ED Course Patient was managed and examined, history and physical obtained. Differential diagnoses were considered. On examination patient has good eye contact, rate of speech is appropriate. Lungs are clear, heart is regular. Patient is tearful occasionally during the interview. Lab work for a behavioral health admission were done. The results were unremarkable. I am still waiting for TSH, her previous TSH was 24. Patient is currently taking 150 g of Synthroid. I discussed the case with Dr. Smith, psychiatrist, who agreed to accept the patient for admission with diagnosis of suicidal ideation. Discussed with the patient who verbalized understanding and agreement. Decision to Disposition Date: Sep 19, 2017 Decision to Disposition Time: 17:39 Depart Departure Latest Vital Signs Vital Signs Date Time Temp Pulse Resp B/P (MAP) Pulse Ox O2 Delivery O2 Flow Rate FiO2 09/19/17 18:17 97 94 09/19/17 18:00 123/93 (103) 09/19/17 16:54 99.1 18 Room Air Impression: Primary Impression: Suicidal ideation Condition: Condition Unchanged Disposition: XFER TO [facility] Referrals: BASSAM HOWELL (PCP) MERRILL JUAREZ Sep 19, 2017 17:12
[2017-09-19 17:22] LABS: PLATELET COUNT, AUTOMATED 240 K/uL (150-450)
[2017-09-19 18:00] VITALS: BP 123/93
[2017-09-20] MEDS ORDERED: QUET150T PO (11:35)
[2017-09-20] MEDS ORDERED: OMEP-137 PO (12:25)
== END 2017-09-19 20:11 ==
LOC: ER 16:49
DX: R45.851 Suicidal ideations (principal)
CPT/HCPCS: 80305; 80320; 80329; 81001; 81025; 82040; 82247; 82310; 82374; 82435; 82565; 82947; 83735; 84075; 84132; 84155; 84295; 84443; 84450; 84460; 84520; 85025; 99284

== ENCOUNTER 2017-09-19 18:35 | Inpatient (IN) | payer OTHER ==
[2015-04-10 13:34] VITALS: Ht 162.6 cm; Wt 90.7 kg
[~2017-09-19] VITALS: Ht 162.6 cm; Wt 90.7 kg
[~2017-09-19 18:35] MED LIST changes: +LEVO150T72 PO; +LITH300T18 PO; +ROSU5TAB8 PO
[2017-09-19] MEDS ORDERED: MAG HYD/AL HYD/SIMETH 30ML UDC PO PRN (21:00)
[2017-09-19 21:06] VITALS: BP 122/97
[2017-09-19] MEDS ORDERED: QUEtiapine FUM 100 MG TAB PO ONE (22:15)
[2017-09-19] MEDS ORDERED: diphenhydrAMINE 25 MG CAP PO ONE (22:15)
[2017-09-20 05:43] VITALS: BP 111/73
[2017-09-20] MEDS: MULTIVITAMINS TAB PO SCH (07:55)
[2017-09-20 10:07] VITALS: BP 112/76
[2017-09-20 10:22] VITALS: BP 112/76
[2017-09-20] MEDS ORDERED: QUET150T PO (11:35)
[2017-09-20] MEDS: TOPIRAMATE 25 MG TAB PO SCH (11:47)
[2017-09-20] MEDS ORDERED: OMEP-137 PO (12:25)
[2017-09-20] MEDS: PANTOPRAZOLE SOD 40 MG TABEC PO SCH (12:42)
[2017-09-20] MEDS: ACETAMINOPHEN 325 MG TAB PO PRN (13:04)
[2017-09-20] MEDS: LEVOTHYROXINE SOD 0.150 MG TAB PO SCH (14:12)
[2017-09-20] MEDS: LOSARTAN POTASSIUM 50 MG TAB PO SCH (14:12)
[2017-09-20 14:32] VITALS: BP 124/94
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
[2017-09-20] MEDS: [UNRECOGNIZED DRUG - OTHER] PO SCH (18:21)
[2017-09-20] MEDS: QUETIAPINE FUM PO SCH (18:21)
[2017-09-20] MEDS ORDERED: METOPROLOL SUCC XL 50 MG TABCR 50 MG TAB.ER.24H PO SCH (21:00)
[2017-09-20] MEDS ORDERED: QUETIAPINE FUM PO SCH (21:00)
[2017-09-20] MEDS ORDERED: ROSUVASTATIN CALCIUM 10 MG TAB PO SCH (21:00)
[2017-09-20] MEDS ORDERED: [UNRECOGNIZED DRUG - OTHER] PO SCH (21:00)
[2017-09-20 21:35] VITALS: BP 128/100
[2017-09-21] MEDS: LEVOTHYROXINE SOD 0.150 MG TAB PO SCH (06:00)
[2017-09-21 06:19] VITALS: BP 96/57
[2017-09-21] MEDS: TOPIRAMATE 25 MG TAB PO SCH (07:44)
[2017-09-21] MEDS: LOSARTAN POTASSIUM 50 MG TAB PO SCH (08:09)
[2017-09-21] MEDS: MULTIVITAMINS TAB PO SCH (08:09)
[2017-09-21] MEDS: PANTOPRAZOLE SOD 40 MG TABEC PO SCH (08:09)
--- NOTE | 2017-09-21 12:01 | BHS Progress Note ---
[facility] - Subjective Progress Notes Subjective Patient reports Topamax as helpful with headaches, and reports good mood today, patient reports suicidal ideation as resolving, and sleep was intact last PM. Will set up outpatient treatment today, and continue to work with patient who will likely discharge tomorrow. Met with patient's , interacting well together. No medication changes today. Suicidal Ideation: Resolving Homicidal Ideation: None [facility] - Objective Physical Exam Vital Signs Hematology Test 09/19/17 17:19 09/20/17 05:49 Free Thyroxine 1.11 ng/dl (0.78-2.19) [place] Level 0.3 mmol/L (0.6-1.2) Chemistry Test 09/19/17 17:19 09/20/17 05:49 Free Thyroxine 1.11 ng/dl (0.78-2.19) [place] Level 0.3 mmol/L (0.6-1.2) Toxicology Test 09/20/17 05:49 [place] Level 0.3 mmol/L (0.6-1.2) Vital Signs Date Time Temp Pulse Resp B/P (MAP) Pulse Ox O2 Delivery O2 Flow Rate FiO2 09/21/17 06:19 97.6 92 15 96/57 (70) 94 Room Air Muscle Strength and Tone: WNL Gait and Station: Steady [facility] Medications Reviewed: Side Effects, Benefits of Medication, Risks Allergies Reviewed: Yes Mental Status Exam General Appearance: Casual, Well Groomed, Good Eye Contact, Cooperative, Polite , Good Interaction, No Tearful, No Psychomotor Agitation, No Psychomotor Retardation, No Bizarre Mannerisms, No Tics Speech: Clear, Spontaneous, Normal Rate, Normal Rhythm, Normal Volume, Normal Tone Mood: Dysthmic/Depressed (improving) Affect: Full and Appropriate, No Flat, No Withdrawn, No Tearful, No Anxious, No Agitated Thought Process: Organized, Logical, Goal Directed, No Loose Associations, No Flight of Ideas Thought Content: Suicidal Ideation (resolving), No Homicidal Ideation, No Delusions, No Auditory Halllucinations, No Visual Hallucinations, No Thought Broadcasting, No Ideas of Reference, No Obsessions, No Compulsions Sensorium: Clear Cognition: Alert & Oriented-Person, Alert & Oriented-Place, Alert & Oriented- Time, [id number] Memory: Immediate, Recent, Remote Intelligence: Average Insight Judgment: Fair (improving) BHS Assessment and Plan [id number] Encounter Date: Sep 21, 2017 [id number] Encounter Time: 11:00 BHS Plan: Necessary Precautions, Individual/Group Therapy, Admin/Titrate Meds, Educate Patient Multpiple Antipsychotics Used: No Problems: (1) Secondary mood disorder Optional Permanent Comment: hypothyroidism, and potential sleep apnea, rule out bipolar II disorder Last Edited By: Magali Perez on Sep 21, 2017 12: 00 Status: Chronic Condition 1. await thyroid testing. 2. continue current medications. 3. likely discharge tomorrow. MAGALI PEREZ MD Sep 21, 2017 12:01
[2017-09-21] MEDS: ACETAMINOPHEN 325 MG TAB PO PRN (12:53)
[2017-09-21 13:00] VITALS: BP 118/64
[2017-09-21 17:20] VITALS: BP 118/62
[2017-09-21] MEDS: QUETIAPINE FUM PO SCH (17:51)
[2017-09-21] MEDS: [UNRECOGNIZED DRUG - OTHER] PO SCH (17:51)
[2017-09-21] MEDS: IBUPROFEN 600 MG TAB PO PRN (17:52)
[2017-09-21] MEDS: ROSUVASTATIN CALCIUM 10 MG TAB PO SCH (18:15)
[2017-09-21] MEDS: METOPROLOL SUCC XL 50 MG TABCR 50 MG TAB.ER.24H PO SCH (18:16)
[2017-09-22] MEDS: LEVOTHYROXINE SOD 0.150 MG TAB PO SCH (06:05)
[2017-09-22 06:08] VITALS: BP 104/68
[2017-09-22] MEDS: LOSARTAN POTASSIUM 50 MG TAB PO SCH (08:14)
[2017-09-22] MEDS: TOPIRAMATE 25 MG TAB PO SCH (08:15)
[2017-09-22] MEDS: PANTOPRAZOLE SOD 40 MG TABEC PO SCH (08:15)
[2017-09-22] MEDS: MULTIVITAMINS TAB PO SCH (08:15)
--- NOTE | 2017-09-22 09:19 | BHS Progress Note ---
[facility] - Subjective Progress Notes Subjective "I'm an emotional wreck this morning and I know it's because I didn't sleep." Outpaitent medication appt. 09/25 Sleep study 11/07/17 Reports insufficient sleep last pm, has had continuous pulse ox with recommended slep study Reports increased depression/anxiety this am, racing thoughts ongoing' Reports suicidal ideation with thoughts of overdosing on medications Suicidal Ideation: None Homicidal Ideation: None [facility] - Objective Physical Exam Vital Signs Allergies Coded Allergies fluconazole (Verified Allergy, Severe, 07/27/17) "KIDNEYS NEARLY SHUT DOWN" zolpidem (Verified Allergy, Intermediate, 07/27/17) latex (Verified Allergy, Mild, RASH, 07/27/17) promethazine (Verified Allergy, Mild, HIVES, 07/27/17) aripiprazole (Verified Allergy, Unknown, MENTAL STATUS CHANGES, 07/27/17) iron (Verified Allergy, Unknown, DIARRHEA, HIVES, SOB, 07/27/17) Deferred Vital Signs Date Time Temp Pulse Resp B/P (MAP) Pulse Ox O2 Delivery O2 Flow Rate FiO2 09/22/17 06:08 99.0 96 104/68 (80) 93 Room Air 09/21/17 17:20 16 Muscle Strength and Tone: WNL Gait and Station: Steady [facility] Medications Reviewed: Side Effects, Benefits of Medication, Risks Allergies Reviewed: Yes Mental Status Exam General Appearance: Casual, Well Groomed, Good Eye Contact, Cooperative, Polite , Good Interaction, Tearful (tearful throughout interview), No Psychomotor Agitation, No Psychomotor Retardation, No Bizarre Mannerisms, No Tics Speech: Clear, Spontaneous, Normal Rate, Normal Rhythm, Normal Volume, Normal Tone Mood: Dysthmic/Depressed (improving) Affect: Full and Appropriate, No Flat, No Withdrawn, Tearful, No Anxious, No Agitated Thought Process: Organized, Logical, Goal Directed, No Loose Associations, No Flight of Ideas Thought Content: Suicidal Ideation (with thoughts of overdosing), No Homicidal Ideation, No Delusions, No Auditory Halllucinations, No Visual Hallucinations, No Thought Broadcasting, No Ideas of Reference, No Obsessions, No Compulsions Sensorium: Clear Cognition: Alert & Oriented-Person, Alert & Oriented-Place, Alert & Oriented- Time, Jreyl-Nnymvjrx-Maymajsdz Memory: Immediate, Recent, Remote Intelligence: Average Insight Judgment: Fair (improving) Lab ED Medications Levothyroxine Sodium (Synthroid 0.150 Mg Tab (Or Equiv)) 0.15 mg QDAY@06 Last administered on 09/22/17at 06:05; Admin Dose 0.15 MG; Start 09/20/17 at 14:00; Stop 10/20/17 at 13:59 Losartan Potassium (Cozaar 50 Mg Tab (Or Equiv)) 50 mg QDAY Last administered on 09/22/17at 08:14; Admin Dose 50 MG; Start 09/20/17 at 14:00; Stop 10/20/17 at 13:59 Metoprolol Succinate (Toprol Xl(*) 50 Mg Tabcr (Or Equiv)) 50 mg QHS Last administered on 09/20/17at 21:02; Admin Dose 50 MG; Start 09/20/17 at 21:00; Stop 09/21/17 at 18:06; Status DC Rosuvastatin Calcium (Crestor 10 Mg Tab (Or Equiv)) 20 mg HS Last administered on 09/20/17at 21:02; Admin Dose 20 MG; Start 09/20/17 at 21:00; Stop 09/21/17 at 18:06; Status DC Topiramate (Topamax 25 Mg Tab (Or Equiv)) 50 mg QAM Last administered on at 08:15; Admin Dose 50 MG; Start 09/20/17 at 11:20; Stop 10/20/17 at 11:19 Quetiapine Fumarate (SEROquel XR 50 MG KARLENE 24 HOUR (OR EQUIV)) 150 mg Q24H@ 1800 Last administered on 09/21/17at 17:51; Admin Dose 150 MG; Start 09/20/17 at 18:00; Stop 10/20/17 at 17:59 Pantoprazole Sodium (Protonix (*) (Or Equiv)) 40 mg QDAY Last administered on at 08:15; Admin Dose 40 MG; Start 09/20/17 at 12:25; Stop 10/20/17 at 12:24 Acetaminophen (Tylenol(*)325 Mg Tab (Or Equiv)) 650 mg Q6H PRN Last administered on 09/21/17at 12:53; Admin Dose 650 MG; Start 09/20/17 at 12:45; Stop 10/20/17 at 12:44 Ibuprofen (Motrin (*) 600 Mg Tab (Or Equiv)) 600 mg Q6H PRN Last administered on 09/21/17at 17:52; Admin Dose 600 MG; Start 09/21/17 at 17:25; Stop 10/21/17 at 17:24 Rosuvastatin Calcium (Crestor 10 Mg Tab (Or Equiv)) 20 mg QPM@1800 Last administered on 09/21/17at 18:15; Admin Dose 20 MG; Start 09/21/17 at 18:15; Stop 10/21/17 at 18:14 Microbiology Laboratory Tests 09/19/17 17:19: Free Thyroxine 1.11, Free Triiodothyronine 2.8 09/20/17 05:49: [place] Level 0.3 BHS Assessment and Plan Upgr-[id number] Encounter Date: Sep 22, 2017 Hzuv-si-Eitu Encounter Time: 09:14 BHS Plan: Necessary Precautions, Individual/Group Therapy, Admin/Titrate Meds, Educate Patient Multpiple Antipsychotics Used: No Problems: (1) Secondary mood disorder Optional Permanent Comment: hypothyroidism, and potential sleep apnea, rule out bipolar II disorder Last Edited By: Dimas Smith on Sep 21, 2017 12: 00 Status: Chronic (2) Depression Status: Acute Condition Continue current medications and treatment Ongoing discharge planning and appropriate outpatient services being discussed and reviewed Maintain precautions Allergies Coded Allergies fluconazole (Verified Allergy, Severe, 07/27/17) "KIDNEYS NEARLY SHUT DOWN" zolpidem (Verified Allergy, Intermediate, 07/27/17) latex (Verified Allergy, Mild, RASH, 07/27/17) promethazine (Verified Allergy, Mild, HIVES, 07/27/17) aripiprazole (Verified Allergy, Unknown, MENTAL STATUS CHANGES, 07/27/17) iron (Verified Allergy, Unknown, DIARRHEA, HIVES, SOB, 07/27/17) KENNEDY ROMERO NP Sep 22, 2017 09:19
[2017-09-22 10:27] VITALS: BP 118/88
[2017-09-22] MEDS: ACETAM/ASA/CAFFEINE 250/250/65 PO PRN (11:41)
[2017-09-22 15:15] VITALS: BP 118/88
[2017-09-22 17:30] VITALS: BP 125/86
[2017-09-22] MEDS: METOPROLOL SUCC XL 50 MG TABCR 50 MG TAB.ER.24H PO SCH (18:00)
[2017-09-22] MEDS: ROSUVASTATIN CALCIUM 10 MG TAB PO SCH (19:05)
[2017-09-22] MEDS: [UNRECOGNIZED DRUG - OTHER] PO SCH (19:06)
[2017-09-22] MEDS: QUETIAPINE FUM PO SCH (19:06)
[2017-09-22] MEDS: hydrOXYzine PAMOATE 25 MG CAP PO PRN ×2 (19:06→21:04)
[2017-09-22 23:04] VITALS: BP 118/88
[2017-09-23] MEDS: LEVOTHYROXINE SOD 0.150 MG TAB PO SCH (05:52)
[2017-09-23 06:07] VITALS: BP 106/68
[2017-09-23] MEDS: TOPIRAMATE 25 MG TAB PO SCH (08:17)
[2017-09-23] MEDS: MULTIVITAMINS TAB PO SCH (08:17)
[2017-09-23] MEDS: PANTOPRAZOLE SOD 40 MG TABEC PO SCH (08:17)
[2017-09-23] MEDS: LOSARTAN POTASSIUM 50 MG TAB PO SCH (08:17)
[2017-09-23] MEDS: IBUPROFEN 600 MG TAB PO PRN (08:17)
--- NOTE | 2017-09-23 09:25 | BHS Progress Note ---
[facility] - Subjective Progress Notes Subjective "I have racing thoughts, depression and anxiety but no anger." Sleep improved, reports some numbness/tingling after starting Topamax, states has had similar reactions with med starts and symtoms wear off. Last suicidal ideation yesterday am Rating depression "8" anxiety about going to [id number] to [facility] prescriptions Vital Signs Date Time Temp Pulse Resp B/P (MAP) Pulse Ox O2 Delivery O2 Flow Rate FiO2 09/23/17 06:07 98.7 89 16 106/68 (81) 96 Room Air Suicidal Ideation: None Homicidal Ideation: None [facility] - Objective Physical Exam Muscle Strength and Tone: WNL Gait and Station: Steady S Medications Reviewed: Side Effects, Benefits of Medication, Risks Allergies Reviewed: Yes Mental Status Exam General Appearance: Casual, Well Groomed, Good Eye Contact, Cooperative, Polite , Good Interaction, No Tearful (tearful throughout interview), No Psychomotor Agitation, No Psychomotor Retardation, No Bizarre Mannerisms, No Tics Speech: Clear, Spontaneous, Normal Rate, Normal Rhythm, Normal Volume, Normal Tone Mood: Dysthmic/Depressed (improving) Affect: Full and Appropriate, No Flat, No Withdrawn, No Tearful, No Anxious, No Agitated Thought Process: Organized, Logical, Goal Directed, No Loose Associations, No Flight of Ideas Thought Content: No Suicidal Ideation (last SI yesterday am ), No Homicidal Ideation, No Delusions, No Auditory Halllucinations, No Visual Hallucinations, No Thought Broadcasting, No Ideas of Reference, No Obsessions, No Compulsions Sensorium: Clear Cognition: Alert & Oriented-Person, Alert & Oriented-Place, Alert & Oriented- Time, Svmyx-Pendrpmr-Cyvoyizdq Memory: Immediate, Recent, Remote Intelligence: Average Insight Judgment: Fair (improving) Lab ED Medications Ibuprofen (Motrin (*) 600 Mg Tab (Or Equiv)) 600 mg Q6H PRN Last administered on 09/23/17at 08:17; Admin Dose 600 MG; Start 09/21/17 at 17:25; Stop 10/21/17 at 17:24 Metoprolol Succinate (Toprol Xl(*) 50 Mg Tabcr (Or Equiv)) 50 mg QPM@1800 Last administered on 09/22/17at 18:00; Admin Dose 50 MG; Start 09/21/17 at 18:16; Stop 10/21/17 at 18:15 Rosuvastatin Calcium (Crestor 10 Mg Tab (Or Equiv)) 20 mg QPM@1800 Last administered on 09/22/17at 19:05; Admin Dose 20 MG; Start 09/21/17 at 18:15; Stop 10/21/17 at 18:14 Acetaminophen/ Aspirin/Caffeine (Excedrin 250/ 250/65 Mg Tab (Or Equiv)) 2 each Q6H PRN Last administered on 09/22/17at 11:41; Admin Dose 2 EACH; Start at 11:05; Stop 10/22/17 at 11:04 Hydroxyzine Pamoate (Vistaril(*) 25 Mg Cap (Or Equiv)) may take 50-to 10... Q6H PRN Last administered on 09/22/17at 21:04; Admin Dose 50 MG; Start 09/22/17 at 18:25; Stop 10/22/17 at 18:24 Microbiology Current Medications Medications (Trade) Dose Ordered Sig/Zack Route PRN Reason Start Time Stop Time Status Last Admin Dose Admin Al Hydrox/Mg Hydrox/Simethicone (Maalox(*) 30 ml Udcup (Or Equiv)) 30 ml Q4H PRN PO HEARTBURN 09/19/17 21:00 10/19/17 20:59 Multivitamins (Thera-M Enhanced Tab (Or Equiv)) 1 each QDAY PO 09/20/17 09:00 10/20/17 08:59 09/23/17 08:17 1 EACH Diphenhydramine HCl (Benadryl(*) 25 Mg Cap (Or Equiv)) 50 mg ONCE ONCE PO 09/19/17 22:15 09/19/17 22:28 DC 09/19/17 22:15 50 MG Quetiapine Fumarate (SEROquel 100 MG TAB (OR EQUIV)) 150 mg ONCE ONCE PO 09/19/17 22:15 09/19/17 22:28 DC 09/19/17 22:15 150 MG Levothyroxine Sodium (Synthroid 0.150 Mg Tab (Or Equiv)) 0.15 mg QDAY@06 PO 09/20/17 14:00 10/20/17 13:59 09/23/17 05:52 0.15 MG Losartan Potassium (Cozaar 50 Mg Tab (Or Equiv)) 50 mg QDAY PO 09/20/17 14:00 10/20/17 13:59 09/23/17 08:17 50 MG Metoprolol Succinate (Toprol Xl(*) 50 Mg Tabcr (Or Equiv)) 50 mg QHS PO 09/20/17 21:00 09/21/17 18:06 DC 09/20/17 21:02 50 MG Quetiapine Fumarate (SEROquel XR 50 MG KARLENE 24 HOUR (OR EQUIV)) 150 mg QHS PO 09/20/17 21:00 09/20/17 21:00 DC Rosuvastatin Calcium (Crestor 10 Mg Tab (Or Equiv)) 20 mg HS PO 09/20/17 21:00 09/21/17 18:06 DC 09/20/17 21:02 20 MG Topiramate (Topamax 25 Mg Tab (Or Equiv)) 50 mg QAM PO 09/20/17 11:20 10/20/17 11:19 09/23/17 08:17 50 MG Quetiapine Fumarate (SEROquel XR 50 MG KARLENE 24 HOUR (OR EQUIV)) 150 mg Q24H@1800 PO 09/20/17 18:00 10/20/17 17:59 09/22/17 19:06 150 MG Pantoprazole Sodium (Protonix (*) (Or Equiv)) 40 mg QDAY PO 09/20/17 12:25 10/20/17 12:24 09/23/17 08:17 40 MG Acetaminophen (Tylenol(*)325 Mg Tab (Or Equiv)) 650 mg Q6H PRN PO FEVER/PAIN 09/20/17 12:45 10/20/17 12:44 09/21/17 12:53 650 MG Ibuprofen (Motrin (*) 600 Mg Tab (Or Equiv)) 600 mg Q6H PRN PO PAIN 09/21/17 17:25 10/21/17 17:24 09/23/17 08:17 600 MG Metoprolol Succinate (Toprol Xl(*) 50 Mg Tabcr (Or Equiv)) 50 mg QPM@1800 PO 09/21/17 18:16 10/21/17 18:15 09/22/17 18:00 50 MG Rosuvastatin Calcium (Crestor 10 Mg Tab (Or Equiv)) 20 mg QPM@1800 PO 09/21/17 18:15 10/21/17 18:14 09/22/17 19:05 20 MG Acetaminophen/ Aspirin/Caffeine (Excedrin 250/ 250/65 Mg Tab (Or Equiv)) 2 each Q6H PRN PO MIGRAINE 09/22/17 11:05 10/22/17 11:04 09/22/17 11:41 2 EACH Hydroxyzine Pamoate (Vistaril(*) 25 Mg Cap (Or Equiv)) may take 50-to 10... Q6H PRN PO ANXIETY/INSOMNIA 09/22/17 18:25 10/22/17 18:24 09/22/17 21:04 50 MG BHS Assessment and Plan Hpji-es-Bjev Encounter Date: Sep 23, 2017 Arzh-vy-Jjyq Encounter Time: 09:24 BHS Plan: Necessary Precautions, Individual/Group Therapy, Admin/Titrate Meds, Educate Patient Multpiple Antipsychotics Used: No Problems: (1) Secondary mood disorder Optional Permanent Comment: hypothyroidism, and potential sleep apnea, rule out bipolar II disorder Last Edited By: Dimas Smith on Sep 21, 2017 12: 00 Status: Chronic (2) Depression Status: Acute Condition Continue working on depression symptoms No medication changes Plan for discharge this afternoon Review outpatient options for care KENNEDY ROMERO NP Sep 23, 2017 09:25
[2017-09-23] MEDS: ACETAM/ASA/CAFFEINE 250/250/65 PO PRN (09:30)
[2017-09-23 10:20] VITALS: BP 126/85
[2017-09-23] MEDS ORDERED: MULT-1379 PO (12:36)
[2017-09-23] MEDS ORDERED: TOPI-120 PO (12:37)
[2017-09-23] MEDS ORDERED: HYDR25CA83 PO (12:38)
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
== END 2017-09-23 13:03 | disposition home or self-care (01) | DRG 884 ==
LOC: BHS 18:35
PROVIDERS: ADMIT Psychiatry & Neurology Psychiatry; ATTEND Psychiatry & Neurology Psychiatry
DX: F06.30 Mood disorder due to known physiological condition, unspecified (principal); R45.851 Suicidal ideations; F31.81 Bipolar II disorder; E03.9 Hypothyroidism, unspecified; I10 Essential (primary) hypertension; R63.5 Abnormal weight gain; G47.30 Sleep apnea, unspecified; F41.9 Anxiety disorder, unspecified; K21.9 Gastro-esophageal reflux disease without esophagitis; Z88.3 Allergy status to other anti-infective agents; Z88.8 Allergy status to other drugs, medicaments and biological substances; Z91.040 Latex allergy status
CPT/HCPCS: 36415; 80178; 84439; 84481; Q0163; Q0177

== ENCOUNTER → 2017-10-04 | Outpatient (CLI) | payer OTHER ==
[2015-04-10 13:34] VITALS: BMI 30.0
[~2017-10-04] MED LIST changes: +MULT-1379 PO; +OMEP-137 PO; +QUET150T PO
== END ==
LOC: LAB 11:25
PROVIDERS: ATTEND Internal Medicine Endocrinology, Diabetes & Metabolism
DX: E05.90 Thyrotoxicosis, unspecified without thyrotoxic crisis or storm (principal); E04.2 Nontoxic multinodular goiter
CPT/HCPCS: 36415; 84443; 84481

== ENCOUNTER → 2017-10-11 | Outpatient (CLI) | payer OTHER ==
[2015-04-10 13:34] VITALS: BMI 30.0
[~2017-10-11] MED LIST changes: -QUET150T PO; +QUET150T2 PO; -SPIR25TA78 PO; +SPIR25TA80 PO
--- NOTE | 2017-10-11 15:59 | EKG ---
FACILITY: [facility] PATIENT NAME: EM SOTO : [id number] MR: [id number] V: [id number] EXAM DATE: ORDERING PHYSICIAN: BASSAM HOWELL TECHNOLOGIST: BRANDON Olivares Reason : ATRIAL TACH Blood Pressure : / mmHG Vent. Rate : 085 BPM Atrial Rate : 085 BPM P-R Int : 142 ms QRS Dur : 078 ms QT Int : 376 ms P-R-T Axes : 045 037 039 degrees QTc Int : 447 ms Normal sinus rhythm Normal ECG No previous ECGs available Confirmed by NEAL WATSON ([id number]) on 10/11/2017 9:57:54 PM Referred By: LYNDA Confirmed By:NEAL WATSON
== END ==
LOC: RESP 13:20
PROVIDERS: ATTEND Nurse Practitioner Family
DX: I47.1 Supraventricular tachycardia (principal)
CPT/HCPCS: 93005

== ENCOUNTER → 2017-12-08 | Outpatient (CLI) | payer OTHER ==
[2015-04-10 13:34] VITALS: BMI 30.0
[~2017-12-08] MED LIST changes: -LOSA25TA50 PO; +LOSA25TA52 PO; -LOSA50TA72 PO; +LOSA50TA74 PO
== END ==
LOC: RESP 20:41
PROVIDERS: ATTEND Psychiatry & Neurology Psychiatry
DX: G47.30 Sleep apnea, unspecified (principal)

== ENCOUNTER → 2017-12-15 | Outpatient (CLI) | payer OTHER ==
[2015-04-10 13:34] VITALS: BMI 30.0
--- NOTE | 2017-12-15 15:52 | RADIOLOGY IMAGING REPORT ---
FACILITY: [facility] [place] PATIENT NAME: Emelina Dalal : 1990 MR: [id number] V: [id number] EXAM DATE: ORDERING PHYSICIAN: NEAL OLIVEIRA TECHNOLOGIST: Location: [facility] [place] Patient: Emelina Dalal : 1990 Visit/Account:[id number] Date of Sevice: 12/15/2017 CT abdomen and pelvis without contrast Indication: Left flank and abdomen pain. Comparison: 10/25/2016. Technique: Axial CT images are obtained through the abdomen and pelvis. Reformatted coronal and sagit concepcion images were reviewed. IV contrast was not administered. One of the following dose optimization techniques was utilized in the performance of this exam: auto mated exposure control; adjustment of the mA and/or kV according to the patient's size; or use of an iterative reconstruction technique. Specific details can be referenced in the facility's radiology C T exam operational policy. Findings: Lower lung villalobos: Limited views lower lung field are unremarkable. Evaluation of the solid organs of the abdomen is limited without IV contrast. Liver: Diffusely heterogeneous without discrete focal abnormality. Biliary: Status post cholecystectomy. The biliary system is unremarkable. Pancreas: No focal abnormality. Spleen: Normal appearance. Adrenal glands: Unremarkable. Kidneys / retroperitoneum: Left kidney shows mild hydronephrosis and hydroureter down to the distal u reter just before the UVJ where there is a 2 mm stone. Left kidney shows no other stones in the colle cting system. The right kidney does show 2 mm stone collecting system without hydronephrosis. No disc rete renal lesions. Mild left perinephric stranding. Bowel / peritoneum / mesenteries: Visualized gastrointestinal tract is within normal limits. The appe ndix not visualized. The stomach is unremarkable. No free air, free fluid, fluid collections or areas of inflammation. Small umbilical hernia containin g fat. Lymph node assessment: No pathologic adenopathy identified. Pelvic structures: Status post hysterectomy. The remaining pelvic structures visualized within nor mal limits. Vessels: No significant atherosclerotic calcifications seen throughout a nonaneurysmal abdominal aort a and branches. Musculoskeletal / Body wall: No acute or aggressive osseous abnormality. IMPRESSION: 1. There is a 2 mm stone at the distal left ureter, just before the UVJ, causing mild hydronephrosis and nephropathy changes to the left kidney. 2. The right kidney shows a 2 mm stone collecting system without hydronephrosis. 3. Heterogeneous liver with areas of decreased attenuation. This is suggestive of areas of focal fatt y infiltration. No discrete focal lesion is identified on this noncontrast exam. If there is clinical concern a follow-up CT scan of the liver with contrast or MRI of the liver with without and with con trast can further evaluate. Report Dictated By: Danish Moe at 12/15/2017 3:43 PM Report E-Signed By: Danish Moe at 12/15/2017 3:49 PM WSN:[id number]
== END ==
LOC: CT 15:03
PROVIDERS: ATTEND Nurse Practitioner Family
DX: N13.2 Hydronephrosis with renal and ureteral calculous obstruction (principal); K76.0 Fatty (change of) liver, not elsewhere classified
CPT/HCPCS: 74176

== ENCOUNTER → 2017-12-19 | Outpatient (REF) | payer OTHER ==
[2015-04-10 13:34] VITALS: BMI 30.0
== END ==
LOC: ZZSENDIN 16:00
PROVIDERS: ATTEND Urology
DX: N20.0 Calculus of kidney (principal)
CPT/HCPCS: 82365; 88300

== ENCOUNTER → 2018-01-08 | Outpatient (CLI) | payer OTHER ==
[2015-04-10 13:34] VITALS: BMI 30.0
[2018-01-08 12:22] LABS: PLATELET COUNT, AUTOMATED 222 K/uL (150-450)
[2018-01-08 12:46] LABS: LDL CHOLESTEROL 61 mg/dl
== END ==
LOC: LAB 11:53
PROVIDERS: ATTEND Nurse Practitioner Family
DX: R73.01 Impaired fasting glucose (principal); E61.1 Iron deficiency; D51.0 Vitamin B12 deficiency anemia due to intrinsic factor deficiency; I10 Essential (primary) hypertension; E28.2 Polycystic ovarian syndrome; N92.4 Excessive bleeding in the premenopausal period; R00.0 Tachycardia, unspecified; E55.9 Vitamin D deficiency, unspecified
CPT/HCPCS: 36415; 82040; 82247; 82306; 82310; 82374; 82435; 82465; 82565; 82607; 82728; 82947; 83718; 84075; 84132; 84155; 84295; 84450; 84460; 84478; 84520; 85025

== ENCOUNTER → 2018-01-08 | Outpatient (CLI) | payer OTHER ==
[2015-04-10 13:34] VITALS: BMI 30.0
== END ==
LOC: LAB 11:56
PROVIDERS: ATTEND Internal Medicine Endocrinology, Diabetes & Metabolism
DX: E89.0 Postprocedural hypothyroidism (principal)
CPT/HCPCS: 84443

== ENCOUNTER → 2018-01-16 | Outpatient (CLI) | payer OTHER ==
[2015-04-10 13:34] VITALS: BMI 30.0
[~2018-01-16] MED LIST changes: +IOPAMIDOL 76% 75 ML INFUS BTL 75 ML ONE
--- NOTE | 2018-01-16 13:04 | RADIOLOGY IMAGING REPORT ---
FACILITY: [facility] PATIENT NAME: Emelina Dalal : 1990 MR: [id number] V: [id number] EXAM DATE: ORDERING PHYSICIAN: NEAL OLIVEIRA TECHNOLOGIST: [place] [facility] [place] : 1990 Visit/Account:[id number] Date of Sevice: 01/16/2018 ABDOMEN/PELVIS W/WO CONTRAST HISTORY: Nondestructive distal left ureteral stone. Probable hepatic steatosis. TECHNIQUE: Axial images acquired through the abdomen/pelvis both with and without IV contrast.. Mary nal and sagittal reformatting also performed. One of the following dose optimization techniques was utilized in the performance of this exam: Automated exposure control; adjustment of the mA and/or kV according to the patient's size; or use of an iterative reconstruction technique. Specific details can be referenced in the facility's radiology CT exam operational policy. CONTRAST: 75 mL [id number] COMPARISON: Comparison CT 12/15/2017 FINDINGS: Visualized lung bases: Negative. Hepatobiliary: There is regional fatty infiltrate seen in the liver. Most of the right lobe and med ial segment left lobe demonstrate a precontrast density measurements of 27 Hounsfield units while oth er areas are normal at 47 Hounsfield units. Post contrast there is no evidence of an underlying mass or distortion of the vascular system confirming this represents fatty infiltrate. Spleen: Negative. Adrenals: Negative. Pancreas: Negative. Kidneys ureters and bladder: 2 mm nonobstructive stone again seen in the right kidney. Right kidney otherwise normal. No stones are seen in the left kidney and the previously seen 2 mm stone at the le ft UVJ has passed. Urinary bladder normal. Genitalia: Remote hysterectomy GI: There are several undigested pills noted in the colon. Large and small bowel are unremarkable w ithout evidence of inflammation. Vessels/spaces/nodes: Negative. Bones/soft tissues: Negative. Additional findings: None pertinent. IMPRESSION: Interval passage of nonobstructive distal left ureteral stone. Right-sided nephrolithiasis with single tiny nonobstructive stone unchanged. Regional hepatic steatosis. No acute pathology identified. Results were called to NEAL OLIVEIRA at 01/16/2018 12:41 PM. Report Dictated By: Mendez Danielson MD at 01/16/2018 12:41 PM Report E-Signed By: Mendez Danielson MD at 01/16/2018 1:00 PM WSN:[id number]
== END ==
LOC: CT 11:22
PROVIDERS: ATTEND Nurse Practitioner Family
DX: N20.0 Calculus of kidney (principal); K76.0 Fatty (change of) liver, not elsewhere classified
CPT/HCPCS: 74178; Q9967

== ENCOUNTER → 2018-01-16 | Outpatient (REF) | payer OTHER ==
[2015-04-10 13:34] VITALS: BMI 30.0
[~2018-01-16] MED LIST changes: -IOPAMIDOL 76% 75 ML INFUS BTL 75 ML ONE
[2018-01-16 11:42] LABS: PLATELET COUNT, AUTOMATED 225 K/uL (150-450)
== END ==
PROVIDERS: ATTEND Nurse Practitioner Family
DX: R10.2 Pelvic and perineal pain (principal)
CPT/HCPCS: 82040; 82247; 82310; 82374; 82435; 82565; 82947; 84075; 84132; 84155; 84295; 84450; 84460; 84520; 85025; 85651

== ENCOUNTER → 2018-01-18 | Outpatient (REF) | payer OTHER ==
[2015-04-10 13:34] VITALS: BMI 30.0
[~2018-01-18] MED LIST changes: +HYDR-653 PO
[2018-01-18 13:04] LABS: PLATELET COUNT, AUTOMATED 214 K/uL (150-450)
== END ==
PROVIDERS: ATTEND Nurse Practitioner Family
DX: R10.2 Pelvic and perineal pain (principal); R11.10 Vomiting, unspecified
CPT/HCPCS: 82040; 82150; 82247; 82310; 82374; 82435; 82565; 82947; 83690; 84075; 84132; 84155; 84295; 84450; 84460; 84520; 85025

== ENCOUNTER 2018-02-11 08:13 | Day surgery (SDC) | payer OTHER ==
[2015-04-10 13:34] VITALS: Ht 157.5 cm; Wt 86.6 kg
[2018-02-07 10:35] LABS: INR 0.97
--- NOTE | 2018-02-08 13:02 | HISTORY AND PHYSICAL ---
DATE OF ADMISSION: February 11, 2018 CHIEF COMPLAINT Kidney stones. HISTORY OF PRESENT ILLNESS The patient is a 27-year-old white female with a history of chronic pelvic pain and endometriosis with mixed urinary incontinence. She was noted to have bilateral kidney stones in January,. She was more recently seen in the urgent care in December of this year with left flank pain and had passed the stone on her left side when she was seen in the urology clinic. It was sent for analysis and returned a calcium oxalate and monohydrate. A follow up CT scan performed on the 16 of January, revealed a 3x4 mm right upper pole calcification and no stones in the left side. No evidence of hydronephrosis. Options of conservative therapy with watchful waiting vs. intervention with ESWL and/or ureteroscopy were discussed. Ureteroscopy was offered with a slightly higher success rate than ESWL. However, she would likely have to have a stent post procedure vs. ureteroscopy with no ureteral stenting required but slightly lower success rate. The patient has voiced desire for lithotripsy, but is still unwilling to consider a ureteroscopy if conditions dictate. The patient now being brought to the operating room for right upper pole kidney stone treatment. PAST MEDICAL HISTORY * Endometriosis with chronic pelvic pain syndrome. * Bipolar disease. * Mixed urinary incontinence. * Hypercholesterolemia. * Hypertension. * Hypothyroidism. * Gastroesophageal reflux disease. PAST SURGICAL HISTORY * Appendectomy. * Cholecystectomy. * Laparoscopic assisted vaginal hysterectomy. * Left shoulder surgery. ALLERGIES LASIX ABILIFY AMBIEN DIFLUCAN CURRENT MEDICATIONS * Xanax. * Multivitamins. * Synthroid. * Omeprazole * Crestor. SOCIAL HISTORY The patient lives in [place] and is . FAMILY HISTORY Noncontributory. REVIEW OF SYSTEMS The patient denies chest pain, shortness of breath, nausea, vomiting, fever, chills, productive cough, liver disease or bleeding disorders. PHYSICAL EXAMINATION GENERAL: Patient is a well-developed, well-nourished, white female in no acute distress. HEENT: Normocephalic, atraumatic. CHEST: Clear to auscultation bilaterally. CARDIOVASCULAR: Regular rate and rhythm. ABDOMINAL: Soft, nontender. No masses are palpated. GENITOURINARY: Deferred to the operating room. EXTREMITIES: Without clubbing, cyanosis, or edema. NEUROLOGIC: Nonfocal. ASSESSMENT This is a 27-year-old white female with a history of calcium oxalate kidney stones now with right upper pole calculus. PLAN We will perform extracorporeal shock wave lithotripsy and/or ureteroscopy as I indicated on the right upper pole stone. FORTINO
[~2018-02-11] VITALS: Ht 157.5 cm; Wt 86.6 kg
[2018-02-11 08:09] VITALS: BP 139/98
[~2018-02-11 08:13] MED LIST changes: +ALPR-429 PO; +CHOL10005 PO; +CYAN250013 PO; +FAMOTIDINE 20 MG TAB PO ONE
--- NOTE | 2018-02-11 08:31 | RADIOLOGY IMAGING REPORT ---
FACILITY: [facility] PATIENT NAME: Emelina Dalal : 1990 MR: [id number] V: [id number] EXAM DATE: ORDERING PHYSICIAN: VIC PORTER TECHNOLOGIST: Location: [facility] Patient: Emelina Dalal : 1990 Visit/Account:[id number] Date of Sevice: 02/06/2018 Abdomen single view: HISTORY: Right-sided kidney stones. COMPARISON: Correlation made with CT scan 01/16/2018 FINDINGS: Single view was obtained of the abdomen. Bowel gas pattern is nonspecific without evidence of ileus, obstruction or free air. Punctate renal stone seen on CT scan 01/16/2018 is not visible r adiographically. No renal or ureteral calculi are identified. Surgical clips are present in the right upper quadrant. Osseous structures are within normal limits. IMPRESSION: No plain radiographic evidence of renal or ureteral calculi. Report Dictated By: Michell Teixeira MD at 02/11/2018 8:22 AM Report E-Signed By: Michell Teixeira MD at 02/11/2018 8:26 AM WSN:[id number]
[2018-02-11] MEDS ORDERED: fentaNYL CITR 100 MCG/2 ML AMP ONE ×3 (08:48→10:30)
[2018-02-11] MEDS ORDERED: PROPOFOL EMUL(*) 10MG/ML 20 ML 20 ML ONE (08:49)
[2018-02-11] MEDS ORDERED: LIDOCAINE 2% IV 100 MG/5ML SYR ONE (08:49)
[2018-02-11] MEDS ORDERED: DEXAMETHASONE SOD 4 MG/ML VIAL ONE (09:00)
[2018-02-11] MEDS ORDERED: ONDANSETRON 4 MG/2 ML VIAL ONE ×2 (09:01→10:23)
[2018-02-11] MEDS ORDERED: SCOPOLAMINE 1.5 MG PATCH TD ONE (09:17)
[2018-02-11] MEDS ORDERED: MIDAZOLAM 2 MG/2 ML VIAL IVP PRN (10:00)
[2018-02-11] MEDS ORDERED: LIDOCAINE/SOD BICARB 8.4% SYR ID ONE (10:00)
[2018-02-11] MEDS ORDERED: NORMOSOL R SOLN(*) 1000 ML BAG 1,000 ML IV PRN (10:00)
[2018-02-11] MEDS ORDERED: ceFAZolin(*) 1 GM VIAL 1 GM in NS(*) 0.9% 100 ML ADDVANT BAG 100 ML IVPB ONE (10:00)
[2018-02-11] MEDS ORDERED: DOCU-416 PO (10:10)
[2018-02-11] MEDS ORDERED: HYDR-653 PO (10:12)
[2018-02-11] MEDS ORDERED: IBUP600T22 PO (10:13)
[2018-02-11] MEDS ORDERED: APAP/HYDROCODONE 325/5 TAB ONE (10:49)
[2018-02-11 11:00] VITALS: BP 112/81
[2018-02-11 11:22] VITALS: BP_SYST 112; BP_DIAS 77; BP_DIAS 81
--- NOTE | 2018-02-11 12:49 | OPERATIVE REPORT 1 ---
EVENT DATE: February 11, 2018 SURGEON: Javier Arias MD ANESTHESIOLOGIST: Gregorio Carpio M.D. ANESTHESIA: General. AIRLINE RADIO OPERATOR: [*] PREOPERATIVE DIAGNOSIS Right upper pole calculus. POSTOPERATIVE DIAGNOSIS Right upper pole calculus. PROCEDURE PERFORMED Right upper pole extracorporeal shock wave lithotripsy. ESTIMATED BLOOD LOSS Minimal. IV FLUIDS Crystalloid. DRAINS None. COMPLICATIONS None. CONDITION The patient was taken to recovery room awake in stable condition. STATEMENT OF MEDICAL NECESSITY The patient is a 27-year-old white female who was noted to have bilateral kidney stones since delivery in 2017. She recently passed a left renal calculus and followup x-rays revealed a remaining 3 x 4 mm right upper pole stone. She is now being brought to the operating room for planned extracorporeal shock wave lithotripsy. DESCRIPTION OF OPERATION PERFORMED The patient was brought to the operating room after general anesthetic was obtained. She was placed supine on the lithotripsy table. The right upper pole stone was identified with fluoroscopy and placed in the lithotripsy cross- hairs in two planes. Treatment was begun at a power setting of 2 and gradually increased to a power setting of 3 over the course of the first 300 shocks. A 3 minute pause was then performed and treatment resumed, where the power was gradually increased to a power setting of 8 by 200 shocks. The last 500 shocks of power was decreased to 7.5. She received a total of 3000 shocks to the right upper pole stone. Intermittent two-plane fluoroscopy was used during treatment to keep the cross-hairs on the stone and stone fragment pile. At the conclusion of the procedure, no significant stone fragments could be identified. She was awakened in the operating room and taken to the recovery area in stable condition. PLAN We will allow the patient to be discharged home today on [place] alternating with Motrin. She has also been given a prescription for Colace. We will plan to see her in the Urology Clinic in approximately six to eight weeks for followup KUB to evaluate treatment results and proceed with metabolic evaluation as indicated. FORTINO
== END 2018-02-11 11:00 | disposition home or self-care (01) ==
LOC: OR 08:13
PROVIDERS: ATTEND Urology
DX: N20.0 Calculus of kidney (principal); N80.0 Endometriosis of uterus; F31.9 Bipolar disorder, unspecified; E78.00 Pure hypercholesterolemia, unspecified; I10 Essential (primary) hypertension; E03.9 Hypothyroidism, unspecified; K21.9 Gastro-esophageal reflux disease without esophagitis; Z90.49 Acquired absence of other specified parts of digestive tract; Z88.8 Allergy status to other drugs, medicaments and biological substances
CPT/HCPCS: 36415; 50590; 74018; 81001; 85610; 87088; J0690; J1100; J2001; J2250; J2405; J2704; J3010; J7050

== ENCOUNTER 2018-02-13 09:10 | Inpatient (IN) | payer OTHER ==
[2015-04-10 13:34] VITALS: Wt 86.2 kg
[~2018-02-13 09:10] MED LIST changes: +DOCU-416 PO; -FAMOTIDINE 20 MG TAB PO ONE; +IBUP600T22 PO
[2018-02-13] MEDS ORDERED: ONDANSETRON 4 MG/2 ML VIAL IVP ONE ×2 (09:15→11:15)
[2018-02-13] MEDS ORDERED: NS(*) 0.9% 1000 ML BAG 1,000 ML IV ONE (09:15)
--- NOTE | 2018-02-13 09:23 | ER Report ---
History and Physical Time Seen By MD: 09:21 Hx. of Stated Complaint: PATIENT HAD LITHOTRIPSY ON SUNDAY. SHE IS REPORTING NAUSEA. RIGHT FLANK PAIN AND REPORTS THAT SHE HAD A FEVER HPI/ROS CHIEF COMPLAINT: Right flank and abdominal pain HISTORY OF PRESENT ILLNESS: Pau 37-year-old female comes emergency Department today with complaint of right flank and right abdominal pain. Patient's urologist center here for evaluation she had lithotripsy done 93 mm right stone and subsequently since then she claims to have a fever of 103 this is not been verified she was normal at 98.6 on arrival to the emergency department pain to the right flank area dull and aching occasionally sharp and stabbing says that she has vomited several times patient denies any bloody or bilious vomiting. Patient states that she feels general fatigue and malaise is having some hesitancy with urination but no pain with urination patient has no additional focal complaints at this time REVIEW OF SYSTEMS: Respiratory: No cough, no dyspnea. Cardiovascular: No chest pain, no palpitations. Gastrointestinal: Vomiting right flank and abdominal pain Musculoskeletal: No back pain. Remainder of the 14 system rev: Yes Allergies: Coded Allergies: fluconazole (Verified Allergy, Severe, 07/27/17) "KIDNEYS NEARLY SHUT DOWN" zolpidem (Verified Allergy, Intermediate, 07/27/17) latex (Verified Allergy, Mild, RASH, 07/27/17) promethazine (Verified Allergy, Mild, HIVES, 07/27/17) aripiprazole (Verified Allergy, Unknown, MENTAL STATUS CHANGES, 07/27/17) iron (Verified Allergy, Unknown, DIARRHEA, HIVES, SOB, 07/27/17) Home Meds Reported Medications Ibuprofen (IBUPROFEN) 600 Mg Tablet, 1 TAB PO Q6H PRN for BREAKTHROUGH PAIN, #20 TAB 02/11/18 Hydrocodone Bit/Acetaminophen (NORCO 5-325 TABLET) 1 Each Tablet, 1-2 EACH PO Q6H PRN for BREAKTHROUGH PAIN, #20 TAB 02/11/18 Docusate Sodium (COLACE) 100 Mg Capsule, 100 MG PO BID, #30 CAPSULE 02/11/18 Cholecalciferol (Vitamin D3) (VITAMIN D3) 1,000 Unit Tablet, 1000 UNIT PO DAILY, TAB 02/06/18 Cyanocobalamin (Vitamin B-12) (Vitamin B12) 2,500 Mcg Tab.chew, 1000 PO DAILY 02/06/18 Alprazolam (XANAX) 0.5 Mg Tablet, 2 TAB PO HS, TAB 02/06/18 Omeprazole (OMEPRAZOLE) 20 Mg Tablet.dr, 20 MG PO QAM, TAB 09/20/17 Rosuvastatin Calcium (CRESTOR) 5 Mg Tablet, 20 MG PO QDAY 09/19/17 Levothyroxine Sodium (SYNTHROID) 150 Mcg Tablet, 150 MCG PO QDAY 09/19/17 Discontinued Reported Medications Hydroxyzine Pamoate (VISTARIL) 25 Mg Capsule, 25 MG PO Q6H PRN for ANXIETY, #30 CAPSULE 09/23/17 Topiramate (TOPAMAX) 50 Mg Tablet, 50 MG PO QAM, #30 09/23/17 Multivits, W-Fe,Other Min (THERA-M) 1 Each Tablet, 1 EACH PO QDAY 09/23/17 Quetiapine Fumarate (Quetiapine Fumarate ER) 150 Mg Tab.er.24h, 150 MG PO DIRECTED TAKE AT 1800 HRS. 09/20/17 Losartan Potassium (LOSARTAN POTASSIUM) 50 Mg Tablet, 50 MG PO QDAY 05/23/17 Metoprolol Succinate (METOPROLOL SUCCINATE) 25 Mg Tab.er.24h, 2 TAB PO QHS, TAB 05/17/17 Discontinued Scripts Hydrocodone Bit/Acetaminophen (NORCO 5-325 TABLET) 1 Each Tablet, 1 EACH PO Q6H PRN for PAIN, #14 TAB 0 Refills Prov:PEDRO PULIDO 01/21/18 Reviewed Nurses Notes: Yes Old Medical Records Reviewed: Yes Hx Smoking: No ( ) Smoking Status: Never Smoker Exposure to Second Hand Smoke?: No Hx Substance Use Disorder: No Hx Alcohol Use: No Constitutional Vital Sign - Last 24 Hours 02/13/18 09:17 Temp 98.5 Pulse 78 Resp 20 B/P (MAP) 112/83 Pulse Ox 93 O2 Delivery Room Air Physical Exam General Appearance: The patient is alert, has no immediate need for airway protection and no current signs of toxicity. [ ] Eyes: Pupils equal and round no injection. Respiratory: Chest is non tender, lungs are clear to auscultation. Cardiac: regular rate and rhythm [ ] Gastrointestinal: Number examination some mild tenderness to palpation of the suprapubic region and some mild right flank tenderness with percussion otherwise unremarkable exam Musculoskeletal: Neck: Neck is supple and non tender. Extremities have full range of motion and are non tender. Skin: No rashes or lesions. [ ] DIFFERENTIAL DIAGNOSIS: After history and physical exam differential diagnosis was considered for UTI pyelonephritis retained kidney stone enteritis Medical Decision Making Data Points Result Diagram: 02/13/1892702/13/18927 Laboratory Hematology Test 02/13/18 09:20 02/13/18 09:28 Urine Color Yellow Urine Clarity Slightly-cloudy Urine pH 5.0 pH (4.8-9.5) Urine Specific [place] 1.015 Urine Protein Negative mg/dL (NEGATIVE) Urine Glucose (UA) Negative mg/dL (NEGATIVE) Urine Ketones Negative mg/dL (NEGATIVE) Urine Blood Large (NEGATIVE) Urine Nitrite Negative (NEGATIVE) Urine Bilirubin Negative (NEGATIVE) Urine Urobilinogen Negative mg/dL (0.2-1.9) Urine Leukocyte Esterase Negative (NEGATIVE) Urine RBC 128 /HPF (0-2/HPF) Urine WBC 3 /HPF (0-5/HPF) Urine Squamous Epithelial Cells Many /LPF (</=FEW) Urine Bacteria Few /HPF (NONE-FEW) Urine Mucus Few /HPF (NONE-FEW) Red Blood Count 4.68 M/uL (4.17-5.56) Mean Corpuscular Volume 89.2 fL (80.0-96.0) Mean Corpuscular Hemoglobin 30.4 pg (26.0-33.0) Mean Corpuscular Hemoglobin Concent 34.1 g/dL (32.0-36.0) Red Cell Distribution Width 13.8 % (11.5-14.5) Mean Platelet Volume 8.5 fL (7.2-11.1) Neutrophils (%) (Auto) 69.2 % (39.4-72.5) Lymphocytes (%) (Auto) 14.9 % (17.6-49.6) Monocytes (%) (Auto) 14.6 % (4.1-12.4) Eosinophils (%) (Auto) 0.8 % (0.4-6.7) Basophils (%) (Auto) 0.5 % (0.3-1.4) Nucleated RBC Relative Count (auto) 0.0 /100WBC Neutrophils # (Auto) 3.8 K/uL (2.0-7.4) Lymphocytes # (Auto) 0.8 K/uL (1.3-3.6) Monocytes # (Auto) 0.8 K/uL (0.3-1.0) Eosinophils # (Auto) 0.0 K/uL (0.0-0.5) Basophils # (Auto) 0.0 K/uL (0.0-0.1) Nucleated RBC Absolute Count (auto) 0.00 K/uL Prothrombin Time 12.8 seconds (12.0-14.4) Prothromb Time International Ratio 0.96 Activated Partial Thromboplast Time 31 seconds (23-35) Sodium Level 140 mmol/L (137-145) Potassium Level 3.7 mmol/L (3.5-5.0) Chloride Level 104 mmol/L (98-107) Carbon Dioxide Level 27 mmol/L (22-31) Blood Urea Nitrogen 13 mg/dl (7-18) Creatinine 0.90 mg/dl (0.52-1.04) Glomerular Filtration Rate Calc > 60.0 Random Glucose 80 mg/dl (75-110) Calcium Level 8.6 mg/dl (8.4-10.2) Total Bilirubin 0.3 mg/dl (0.2-1.3) Aspartate Amino Transf (AST/SGOT) 45 U/L (0-35) Alanine Aminotransferase (ALT/SGPT) 45 U/L (0-56) Alkaline Phosphatase 62 U/L (0-126) Total Protein 6.8 g/dl (6.3-8.2) Albumin 3.9 g/dl (3.5-5.0) Chemistry Test 02/13/18 09:20 02/13/18 09:28 Urine Color Yellow Urine Clarity Slightly-cloudy Urine pH 5.0 pH (4.8-9.5) Urine Specific [place] 1.015 Urine Protein Negative mg/dL (NEGATIVE) Urine Glucose (UA) Negative mg/dL (NEGATIVE) Urine Ketones Negative mg/dL (NEGATIVE) Urine Blood Large (NEGATIVE) Urine Nitrite Negative (NEGATIVE) Urine Bilirubin Negative (NEGATIVE) Urine Urobilinogen Negative mg/dL (0.2-1.9) Urine Leukocyte Esterase Negative (NEGATIVE) Urine RBC 128 /HPF (0-2/HPF) Urine WBC 3 /HPF (0-5/HPF) Urine Squamous Epithelial Cells Many /LPF (</=FEW) Urine Bacteria Few /HPF (NONE-FEW) Urine Mucus Few /HPF (NONE-FEW) White Blood Count 5.5 k/uL (4.5-11.0) Red Blood Count 4.68 M/uL (4.17-5.56) Hemoglobin 14.2 g/dL (12.0-16.0) Hematocrit 41.7 % (34.0-47.0) Mean Corpuscular Volume 89.2 fL (80.0-96.0) Mean Corpuscular Hemoglobin 30.4 pg (26.0-33.0) Mean Corpuscular Hemoglobin Concent 34.1 g/dL (32.0-36.0) Red Cell Distribution Width 13.8 % (11.5-14.5) Platelet Count 201 K/uL (150-450) Mean Platelet Volume 8.5 fL (7.2-11.1) Neutrophils (%) (Auto) 69.2 % (39.4-72.5) Lymphocytes (%) (Auto) 14.9 % (17.6-49.6) Monocytes (%) (Auto) 14.6 % (4.1-12.4) Eosinophils (%) (Auto) 0.8 % (0.4-6.7) Basophils (%) (Auto) 0.5 % (0.3-1.4) Nucleated RBC Relative Count (auto) 0.0 /100WBC Neutrophils # (Auto) 3.8 K/uL (2.0-7.4) Lymphocytes # (Auto) 0.8 K/uL (1.3-3.6) Monocytes # (Auto) 0.8 K/uL (0.3-1.0) Eosinophils # (Auto) 0.0 K/uL (0.0-0.5) Basophils # (Auto) 0.0 K/uL (0.0-0.1) Nucleated RBC Absolute Count (auto) 0.00 K/uL Prothrombin Time 12.8 seconds (12.0-14.4) Prothromb Time International Ratio 0.96 Activated Partial Thromboplast Time 31 seconds (23-35) Glomerular Filtration Rate Calc > 60.0 Calcium Level 8.6 mg/dl (8.4-10.2) Total Bilirubin 0.3 mg/dl (0.2-1.3) Aspartate Amino Transf (AST/SGOT) 45 U/L (0-35) Alanine Aminotransferase (ALT/SGPT) 45 U/L (0-56) Alkaline Phosphatase 62 U/L (0-126) Total Protein 6.8 g/dl (6.3-8.2) Albumin 3.9 g/dl (3.5-5.0) Coagulation Test 02/13/18 09:28 Prothrombin Time 12.8 seconds Prothromb Time International Ratio 0.96 Activated Partial Thromboplast Time 31 seconds Urinalysis Test 02/13/18 09:20 Urine Color Yellow Urine Clarity Slightly-cloudy Urine pH 5.0 pH (4.8-9.5) Urine Specific [place] 1.015 Urine Protein Negative mg/dL (NEGATIVE) Urine Glucose (UA) Negative mg/dL (NEGATIVE) Urine Ketones Negative mg/dL (NEGATIVE) Urine Blood Large (NEGATIVE) Urine Nitrite Negative (NEGATIVE) Urine Bilirubin Negative (NEGATIVE) Urine Urobilinogen Negative mg/dL (0.2-1.9) Urine Leukocyte Esterase Negative (NEGATIVE) Urine RBC 128 /HPF (0-2/HPF) Urine WBC 3 /HPF (0-5/HPF) Urine Squamous Epithelial Cells Many /LPF (</=FEW) Urine Bacteria Few /HPF (NONE-FEW) Urine Mucus Few /HPF (NONE-FEW) ED Course/Re-evaluation ED Course ED clinical course 27-year-old female status post one day of lithotripsy stone removal comes in with [address] scan considered pyelonephritis and able tolerate by mouth be admitted to Dr. Arias urology broad-spectrum matchbox initiated chest x-ray performed Decision to Disposition Date: Feb 13, 2018 Decision to Disposition Time: 11:03 Depart Departure Latest Vital Signs Vital Signs Date Time Temp Pulse Resp B/P (MAP) Pulse Ox O2 Delivery O2 Flow Rate FiO2 02/13/18 09:17 98.5 78 20 112/83 93 Room Air Impression: Primary Impression: Pyelonephritis Condition: Improved Disposition: Admitted from ER Referrals: BASSAM HOWELL (PCP) SIXTO SAGE MD Feb 13, 2018 09:23
[2018-02-13 09:40] LABS: PLATELET COUNT, AUTOMATED 201 K/uL (150-450)
[2018-02-13 09:46] LABS: INR 0.96
[2018-02-13] MEDS ORDERED: IOPAMIDOL 76% 75 ML INFUS BTL 75 ML ONE (10:08)
--- NOTE | 2018-02-13 10:56 | RADIOLOGY IMAGING REPORT ---
FACILITY: [facility] PATIENT NAME: Emelina Dalal : 1990 MR: [id number] V: [id number] EXAM DATE: ORDERING PHYSICIAN: SIXTO SAGE TECHNOLOGIST: Location: [facility] [place] Patient: Emelina Dalal : 1990 Visit/Account:[id number] Date of Sevice: 02/13/2018 ABDOMEN/PELVIS WITH CONTRAST COMPARISON: 01/16/2018 CT abdomen and pelvis with and without contrast. HISTORY: Right flank pain. TECHNIQUE: Axial CT abdomen and pelvis with intravenous contrast. Coronal and sagittal reformats. One of the following dose optimization techniques was utilized in the performance of this exam: aut omated exposure control; adjustment of the mA and/or kV according to patient size; or use of iterativ e reconstruction technique. Specific details can be referenced in the facility's radiology CT exam o perational policy. CONTRAST: 80 mL of IV Isovue-370. FINDINGS: LUNG BASES: Unremarkable. LIVER: Diffuse low-density despite IV contrast administration, consistent with diffuse hepatic steat osis with focal fat deposition adjacent to the falciform ligament again noted. Liver is enlarged, 18. 6 cm craniocaudally. BILIARY: There are cholecystectomy clips in the gallbladder fossa. No intra- or extrahepatic bile duct dilatation. SPLEEN: Unremarkable. Normal size. PANCREAS: Unremarkable. No significant mass, ductal dilatation or focal atrophy. No evidence of ac jamul pancreatitis. ADRENALS: Unremarkable. KIDNEYS: Wedge-shaped region of diminished enhancement in the right kidney lower pole laterally on a xial image 63 is new from previous consistent with acute pyelonephritis with a smaller region of john lar low density anteriorly in the right kidney on image 62 also consistent with pyelonephritis. No ur eteral stones or hydronephrosis. No abnormal urothelial enhancement or perinephric fluid/fat strandin g. There is a 1 mm stone in the right kidney upper pole. There is a too small to characterize probabl e cyst in the right mid kidney posteriorly. GI/MESENTERY: Unremarkable. No visible mass, obstruction, or bowel wall thickening. VASCULAR: Unremarkable. LYMPH NODES: Unremarkable. No significantly enlarged lymph nodes. BLADDER: Unremarkable. No visible focal wall thickening, appreciable lesion, or calculus. PELVIC ORGANS: Hysterectomy. Normal CT appearance of the ovaries. BONES: Unremarkable.No acute-appearing fracture or suspicious osseous lesion. OTHER: Negative. IMPRESSION: 1. Findings consistent with acute pyelonephritis of the right kidney. No right hydronephrosis/eviden ce of obstruction. 2. 1 mm nonobstructive stone in the right kidney. 3. Hepatomegaly and generalized hepatic steatosis. 4. Bile duct prominence which is within normal limits postcholecystectomy and stable. 5. Hysterectomy. Report Dictated By: Dimas Du at 02/13/2018 10:44 AM Report E-Signed By: Dimas Du at 02/13/2018 10:52 AM WSN:[id number]
[2018-02-13] MEDS ORDERED: LEVOFLOXACIN/D5W*500 MG/100 ML 100 ML IVPB ONE (11:00)
--- NOTE | 2018-02-13 11:29 | RADIOLOGY IMAGING REPORT ---
FACILITY: [facility] - [place] PATIENT NAME: Emelina Dalal : 1990 MR: [id number] V: [id number] EXAM DATE: ORDERING PHYSICIAN: SIXTO SAGE TECHNOLOGIST: Location: [facility] [place] Patient: Emelina Dalal : 1990 Visit/Account:[id number] Date of Sevice: 02/13/2018 CHEST PA AND LAT History: fever FINDINGS: Comparison studies: 06/11/2017 Tubes and Lines: None. Lungs and pleura: Well aerated. No evidence of focal consolidation or pleural effusions. Mediastinum: normal. Cardiac silhouette: normal . Osseous structures: Unremarkable for age . IMPRESSION: Normal chest Report Dictated By: Mendez Danielson MD at 02/13/2018 11:24 AM Report E-Signed By: Mendez Danielson MD at 02/13/2018 11:25 AM WSN:[id number]
[2018-02-13 11:39] VITALS: BP 110/80
[2018-02-13] MEDS ORDERED: ROSU20TA5 PO (11:53)
[2018-02-13] MEDS ORDERED: MULT-1379 PO (11:53)
[2018-02-13] MEDS ORDERED: MULT1TAB54 PO (11:53)
[2018-02-13] MEDS ORDERED: CHOL500025 PO (11:53)
[2018-02-13] MEDS ORDERED: MEPERIDINE 10 MG/ML 30 ML PCA IV PRN ×2 (13:00→13:05)
[2018-02-13] MEDS ORDERED: MORPHINE SULFATE 30 MG PCA IV PRN (13:35)
[2018-02-13] MEDS ORDERED: NALOXONE HCL 0.4 MG/ML VIAL IVP PRN (13:35)
[2018-02-13] MEDS: NS(*) 0.9% 1000 ML BAG 1,000 ML IV PRN (14:16)
[2018-02-13 15:43] VITALS: BP 109/84
[2018-02-13 18:48] VITALS: BP 114/80
--- NOTE | 2018-02-13 19:14 | HISTORY AND PHYSICAL ---
DATE OF ADMISSION: February 13, 2018 CHIEF COMPLAINT Right flank pain. HISTORY OF PRESENT ILLNESS Patient is a 27-year-old white female who presented to the Emergency Room earlier this morning complaining of increasing right flank and abdominal pain and with a subjective fever of 103 at home. In the Emergency Room, she had a temp of 98.6. Her laboratory data revealed a normal white count of 5.5 with no left shift. Her electrolytes were normal with a creatinine of 0.9. Her urine showed some microscopic hematuria. A CT scan was performed which showed a 1 mm right upper pole fragment as well as a web-shaped region of diminished enhancement in the right lower pole and a smaller region anteriorly on the kidney. There was no evidence of hydronephrosis or ureteral stones. A chest x- ray was performed which was normal. The patient was having significant nausea, vomiting, and flank pain in the Emergency Room; therefore, she is being admitted for IV hydration. Her most recent past medical history is significant for undergoing a right upper pole extracorporeal shock wave lithotripsy on the for a 3 x 3 mm upper pole stone. PAST MEDICAL HISTORY 1. Chronic pelvic pain syndrome with endometriosis. 2. Bipolar disease. 3. Mixed urinary incontinence. 4. Hypercholesterolemia. 5. Hypertension. 6. Hypothyroidism. 7. Gastroesophageal reflux disease. 8. Kidney stones. PAST SURGICAL HISTORY 1. Appendectomy. 2. Laparoscopy-assisted vaginal hysterectomy. 3. Left shoulder surgery. 4. Cholecystectomy. 5. Right extracorporeal shock wave lithotripsy February 11, 2018. ALLERGIES LASIX, ABILIFY, AMBIEN, and DIFLUCAN. CURRENT MEDICATIONS 1. Xanax. 2. Multivitamin. 3. Synthroid. 4. Omeprazole. 5. Crestor. SOCIAL HISTORY Patient lives in [place]. FAMILY HISTORY Noncontributory. REVIEW OF SYSTEMS Patient denies productive cough, chest pains, liver disease, bleeding disorder, change in bowel habits, or recent gross hematuria. PHYSICAL EXAMINATION GENERAL: Patient is a well-developed, well-nourished, white female in no acute distress. HEENT: Normocephalic, atraumatic. CHEST: Clear to auscultation bilaterally. CARDIOVASCULAR: Regular rate and rhythm. ABDOMINAL: Soft, nontender. No masses are palpated. BACK: Mild right CVT. EXTREMITIES: Without clubbing, cyanosis, or edema. NEUROLOGIC: Nonfocal. IMPRESSION A 27-year-old white female two days status post right extracorporeal shock wave lithotripsy, now with right flank pain and hypoattenuating areas in her kidneys. It is unclear whether this is an early pyelonephritis or changes post lithotripsy. Her kidney stone is decreased from 3 to 1 mm in size. She has no evidence of ureteral obstruction or renal calculi along the course of her ureter. Her white count is normal with no left shift, and her urine is unremarkable except for some microscopic hematuria. 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 MTDD
[2018-02-13] MEDS ORDERED: ZOLPIDEM TARTRATE 5 MG TAB PO PRN (19:45)
[2018-02-13] MEDS ORDERED: MAG HYD/AL HYD/SIMETH 30ML UDC PO PRN (19:50)
[2018-02-13] MEDS: DOCUSATE SODIUM 100 MG CAP PO SCH (20:48)
[2018-02-13] MEDS: ONDANSETRON 4 MG/2 ML VIAL IVP PRN (21:03)
[2018-02-13 23:58] VITALS: BP 99/66
[2018-02-14] MEDS: NS(*) 0.9% 1000 ML BAG 1,000 ML IV PRN (00:03)
[2018-02-14 02:30] VITALS: BP 110/63
[2018-02-14] MEDS: ONDANSETRON 4 MG/2 ML VIAL IVP PRN (05:24)
[2018-02-14 05:32] LABS: PLATELET COUNT, AUTOMATED 168 K/uL (150-450)
[2018-02-14] MEDS ORDERED: LEVOTHYROXINE SOD 0.150 MG TAB PO SCH (06:00)
[2018-02-14 07:22] VITALS: BP 115/85
[2018-02-14] MEDS ORDERED: ROSUVASTATIN CALCIUM 10 MG TAB PO SCH (09:00)
[2018-02-14] MEDS: DOCUSATE SODIUM 100 MG CAP PO SCH (09:00)
[2018-02-14] MEDS ORDERED: LEVO-85 PO (09:52)
[2018-02-14] MEDS ORDERED: DOCU-416 PO (09:53)
[2018-02-14] MEDS ORDERED: ONDA4TAB97 PO (09:54)
[2018-02-14] MEDS ORDERED: HYDR-653 PO (09:56)
[2018-02-14] MEDS ORDERED: IBUP600T22 PO (09:58)
[2018-02-14] MEDS ORDERED: LEVOFLOXACIN/D5W*500 MG/100 ML 100 ML IVPB SCH (11:00)
[2018-02-14 11:03] VITALS: BP 107/71
== END 2018-02-14 15:23 | disposition home or self-care (01) | DRG 694 ==
LOC: ER 09:18 → MED 11:14
PROVIDERS: ADMIT Urology; ATTEND Urology
DX: N20.0 Calculus of kidney (principal); R32 Unspecified urinary incontinence; E78.00 Pure hypercholesterolemia, unspecified; I10 Essential (primary) hypertension; E03.9 Hypothyroidism, unspecified; K21.9 Gastro-esophageal reflux disease without esophagitis; N80.9 Endometriosis, unspecified; F31.9 Bipolar disorder, unspecified; Z90.49 Acquired absence of other specified parts of digestive tract; Z88.8 Allergy status to other drugs, medicaments and biological substances; Z91.040 Latex allergy status
CPT/HCPCS: 36415; 71046; 74177; 81001; 82040; 82247; 82310; 82374; 82435; 82565; 82947; 84075; 84132; 84155; 84295; 84450; 84460; 84520; 85025; 85610; 85730; 87088; J1956; J2270; J2405; J7030; Q9967

== ENCOUNTER → 2018-03-11 | Outpatient (CLI) | payer OTHER ==
[2015-04-10 13:34] VITALS: BMI 30.0
[~2018-03-11] MED LIST changes: +CHOL500025 PO; +LEVO-85 PO; -LOSA25TA52 PO; +LOSA25TA57 PO; -LOSA50TA74 PO; +LOSA50TA80 PO; +MULT1TAB54 PO; +ROSU20TA5 PO
== END ==
LOC: LAB 14:12
PROVIDERS: ATTEND Nurse Practitioner Family
DX: J20.9 Acute bronchitis, unspecified (principal); J01.90 Acute sinusitis, unspecified; R53.83 Other fatigue; E03.9 Hypothyroidism, unspecified
CPT/HCPCS: 36415; 82040; 82247; 82310; 82374; 82435; 82565; 82947; 84075; 84132; 84155; 84295; 84443; 84450; 84460; 84520; 85027; 86308

== ENCOUNTER 2018-07-04 00:25 | Day surgery (SDC) | payer OTHER ==
[2015-04-10 13:34] VITALS: Ht 160 cm; Wt 87.1 kg
[2018-07-02 16:30] LABS: PLATELET COUNT, AUTOMATED 267 K/uL (150-450)
[2018-07-02 16:36] LABS: INR 0.96
--- NOTE | 2018-07-03 19:27 | HISTORY AND PHYSICAL ---
DATE OF ADMISSION: July 04, 2018 CHIEF COMPLAINT Right kidney stone. HISTORY OF PRESENT ILLNESS Patient is a 27-year-old white female with a history of kidney stones who recently presented to her doctor in [place], [place], with significant right flank pain and microscopic hematuria. A CT scan was performed in [place], [place], which showed a 4 x 3 mm right lower pole stone. Her right ureter appeared normal without evidence of intrarenal calculi or obstruction. Her left side also appeared normal. She was seen in the Urology Clinic on the 2nd of this month with continued significant right flank and abdominal pain. Her urinalysis was normal. Her films were shown to her and discussed in detail, and she has elected to undergo treatment of this right lower pole stone. I have informed her that removal of the stone does not guarantee resolution of her pain. It would be unusual to have this significant amount of pain for a small intrarenal calculus, but it is not unheard of. She does have a history of chronic pelvic pain syndrome with endometriosis as well as bipolar disease which may be contributing factors to her current situation and otherwise I think is a reasonable approach to treat this intrarenal calcification to see if we can improve her current discomfort as well as to prevent any possible renal colic or obstruction episodes in the future. She is currently taken to the operating room for planned extracorporeal shock wave lithotripsy and/or ureteroscopy as indicated. PAST MEDICAL HISTORY 1. Chronic pelvic pain syndrome. 2. Endometriosis. 3. Bipolar disease. 4. Mixed urinary incontinence. 5. Hypercholesterolemia. 6. Hypertension. 7. Hypothyroidism. 8. Gastroesophageal reflux disease. 9. Kidney stones. PAST SURGICAL HISTORY 1. Appendectomy. 2. Laparoscopic-assisted vaginal hysterectomy. 3. Left shoulder surgery. 4. Cholecystectomy. 5. Right extracorporeal shock wave lithotripsy February 11, 2018. ALLERGIES LASIX, ABILIFY, AMBIEN, DIFLUCAN, IRON. CURRENT MEDICATIONS 1. Multivitamins. 2. Lortab. 3. Levothyroxine. 4. Zofran. 5. Zantac. FAMILY HISTORY Noncontributory. REVIEW OF SYSTEMS Patient denies gross hematuria, fever, chills, chest pain, productive cough, bleeding disorder, liver disease, and chronic headaches. PHYSICAL EXAMINATION GENERAL: Patient is a well-developed, well-nourished white female in no acute distress. HEENT: Normocephalic, atraumatic. CHEST: Clear to auscultation bilaterally. CARDIOVASCULAR: Regular rate and rhythm. ABDOMEN: Soft, nontender. No masses are palpated. GENITOURINARY: Deferred to the OR. EXTREMITIES: Without clubbing, cyanosis, or edema. NEUROLOGIC: Nonfocal. IMPRESSION A 27-year-old white female with right intrarenal calculus measuring 4 x 3 mm in the lower pole. PLAN We will perform right extracorporeal shock wave lithotripsy and/or ureteroscopy as indicated. MERID
[~2018-07-04] VITALS: Ht 160 cm; Wt 87.1 kg
[~2018-07-04 00:25] MED LIST changes: +LEVO137T22 PO; +RANI-366 PO
[2018-07-04] MEDS: NORMOSOL R SOLN(*) 1000 ML BAG 1,000 ML IV PRN ×2 (07:22→11:29)
[2018-07-04 07:41] VITALS: BP 128/80
[2018-07-04] MEDS ORDERED: FAMOTIDINE 20 MG TAB PO ONE (08:10)
[2018-07-04] MEDS ORDERED: MIDAZOLAM 2 MG/2 ML VIAL IVP PRN (08:10)
[2018-07-04] MEDS ORDERED: ceFAZolin(*) 1 GM VIAL 1 GM in NS(*) 0.9% 100 ML MINI-BAG 100 ML IVPB ONE (08:10)
[2018-07-04] MEDS ORDERED: LIDOCAINE/SOD BICARB 8.4% SYR ID ONE (08:10)
[2018-07-04] MEDS ORDERED: DEXAMETHASONE SOD 4 MG/ML VIAL ONE (08:31)
[2018-07-04] MEDS ORDERED: ONDANSETRON 4 MG/2 ML VIAL ONE ×2 (08:31→11:23)
[2018-07-04] MEDS ORDERED: PROPOFOL EMUL(*) 10MG/ML 20 ML 20 ML ONE (08:31)
[2018-07-04] MEDS ORDERED: fentaNYL CITR 100 MCG/2 ML AMP ONE ×2 (08:31→09:44)
[2018-07-04] MEDS ORDERED: LIDOCAINE MPF 1% 5 ML VIAL ONE (08:31)
[2018-07-04] MEDS ORDERED: KETAMINE HCL 200 MG/20 ML MDV ONE (08:35)
[2018-07-04] MEDS ORDERED: BELLADONNA ALK/OPIUM 60MG SUPP PR ONE (09:17)
[2018-07-04] MEDS ORDERED: OXYB10TA21 PO (10:59)
[2018-07-04] MEDS ORDERED: TAMS0.4C25 PO (11:00)
[2018-07-04] MEDS ORDERED: PHEN200T32 PO (11:00)
--- NOTE | 2018-07-04 11:17 | RADIOLOGY IMAGING REPORT ---
FAC[place] [facility] [place]IENT NAME: Emelina Dalal : 1990 MR: [id number] V: [id number] EXAM DATE: ORDERING PHYSICIAN: VIC PORTER TECHNOLOGIST: Location: [facility] - [place] Patient: Emelina Dalal : 1990 Visit/Account:[id number] Date of Sevice: 07/02/2018 ABDOMEN PELVIS ESWL CYSTO W/O HISTORY: KIDNEY STONES, right flank pain, preop TECHNIQUE: Axial images acquired through the abdomen/pelvis. Coronal and sagittal reformatting also performed. No IV contrast administered.Dose Lowering Technique One of the following dose optimization techniques was utilized in the performance of this exam: Autom ated exposure control; adjustment of the mA and/or kV according to the patient's size; or use of an i terative reconstruction technique. Specific details can be referenced in the facility's radiology C T exam operational policy. COMPARISON: February 13, 2018 FINDINGS: Visualized lung bases: Negative. Hepatobiliary: Postsurgical changes from a cholecystectomy Spleen: Negative. Adrenals: Negative. Pancreas: Negative. Kidneys ureters and bladder: There is a 4 x 2 mm calculus in the distal right ureter approximately 3 cm proximal to the right UVJ with mild right hydroureter. There is a punctate 1 mm nonobstructing ca lculus lower pole calyx of the left kidney and an additional 1 mm punctate nonobstructing calculus i n the mid to upper pole of the left kidney Genitalia: There appears to been a hysterectomy GI: No evidence of bowel obstruction or bowel wall thickening Vessels/spaces/nodes: There several scattered mesenteric lymph nodes that appears stable when compar ed the prior study Bones/soft tissues: Negative. Additional findings: None pertinent. IMPRESSION: There is a 4 x 2 mm calculus in the distal right ureter approximately 3 cm proximal to the right UVJ producing a mild right hydroureter Tiny punctate nonobstructing calculi in the left renal collecting system Postsurgical changes from a cholecystectomy and hysterectomy Report Dictated By: Vane Carr MD at 07/04/2018 11:00 AM Report E-Signed By: Vane Carr MD at 07/04/2018 11:11 AM KALPESHN:GUILLERMINA
[2018-07-04 11:50] VITALS: BP 109/79
--- NOTE | 2018-07-04 12:01 | OPERATIVE REPORT 1 ---
EVENT DATE: July 04, 2018 SURGEON: Javier Arias MD ANESTHESIOLOGIST: Bjorn Amezcua MD ANESTHESIA: General. PREOPERATIVE DIAGNOSIS Right distal ureteral calculus. POSTOPERATIVE DIAGNOSES 1. Right distal ureteral calculus. 2. Tiny bladder calculus. PROCEDURES PERFORMED 1. Cystoscopy. 2. Grasping and removal of 1 x 2 mm bladder stone. 3. Right semi-rigid ureteroscopy with laser fragmentation of stone and grasping of fragments. 4. Right internal double-J ureteral stent placement. ESTIMATED BLOOD LOSS 5 cc. IV FLUIDS Crystalloids. PATHOLOGY Small bladder stone for permanent analysis. DRAINS 5-Norwegian x 26 cm Polaris microinvasive double-J stent on right. COMPLICATIONS None. CONDITION Patient taken to the recovery room awake in stable condition. STATEMENT OF MEDICAL NECESSITY Patient is a 27-year old white female with history of kidney stones who was recently seen in [place], [place] with renal colic type symptoms. At that time, a CT scan was performed which showed a 4 x 3 mm stone in the right lower pole. When seen in the office, she was having significant colic type symptoms. Options were discussed and she elected to undergo urologic intervention. Preoperative x-ray today revealed the stone had migrated down the ureter and was approximately 3 cm above the right ureteral orifice. She had some very mild hydronephrosis. This was discussed with the patient and she was informed that we would proceed with planned ureteroscopy with stent placement. DESCRIPTION OF PROCEDURE Patient was brought to the operating room. After general anesthetic was obtained, she was placed in the dorsal lithotomy position and prepped and draped in the usual sterile manner. Anesthetic cystoscopy with the 21-Norwegian rigid scope and 30-degree lens was performed. She had a normal appearing urethra. Upon entering her bladder, a 1 x 2 mm free-flowing stent was in the dependent portion of the bladder, which was light carter and angular in shape. This was grasped with the rigid grasping forceps and saved to be sent for analysis. The remainder of the bladder appeared normal. She had slit-like ureteral orifices, both effluxing clear urine. At this point, the right ureteral orifice was cannulated with a 6-Norwegian open end access catheter. A double floppy wire was advanced in the lumen of the access catheter of the upper pole of calyx. The access catheter was removed. This wire was used to place an 18 dilating system. The 10 sheath was then used to place the second wire alongside the first wire. The 10 sheath was removed. One wire was secured to the drapes as safety wire and the next wire was used as a working wire and back-loaded onto the Machuca semi- rigid ureteroscope. The scope was advanced over the working wire under direct vision. The previously seen stone was encountered approximately 5 cm above the right ureteral orifice. It appeared to have been fractured into four to five smaller fragments just with the 8/10 dilating system. At this point, the working wire was removed and the Holmium laser fiber was introduced. Using the dusting setting, the larger fragments were treated to dust-like particles. There were one or two remaining fragments measuring approximately 1 x 2 mm. Therefore, these were engaged separately with Tricep grasping forceps and brought down into the bladder and removed. Following this, the scope was reintroduced and advanced up to approximately the mid ureter. Pull-out ureteroscopy revealed no ureteral injury or remaining stone fragments. At this point, the safety wire was back-loaded into the cystoscopic sheath and this was used to place a 5-Norwegian x 24 cm Polaris microinvasive stent. The wire was removed. She was noted to have good curling in the renal pelvis by fluoroscopy and good curling in the bladder by direct vision. The patient's bladder was drained through the cystoscopic sheath. A B and O suppository was given per rectum at the conclusion of the case. She was awakened in the operating room and taken to the recovery area awake and in stable condition. PLAN We will allow the patient to be discharged home today on Lortab, Colace, Pyridium, Ditropan XL, Flomax and Motrin. I will plan to see her in the office in one to two weeks for stent removal at that time and proceed with metabolic evaluation. FORTINO
[2018-07-04 12:06] VITALS: BP 126/93
[2018-07-04 12:07] VITALS: BP 109/72
[2018-07-04] MEDS ORDERED: APAP/HYDROCODONE 325/5 TAB ONE (12:16)
--- NOTE | 2018-07-04 12:43 | RADIOLOGY IMAGING REPORT ---
FACILITY: [facility] - [place] PATIENT NAME: Emelina Dalal : 1990 MR: [id number] V: [id number] EXAM DATE: ORDERING PHYSICIAN: VIC PORTER TECHNOLOGIST: Location: [facility] Patient: Emelina Dalal : 1990 Visit/Account:[id number] Date of Sevice: 07/04/2018 C-ARM FLUORO 1 HR HISTORY: KIDNEY STONES INTRAOPERATIVE FILMS 18 total films FINDINGS: Study demonstrates cannulization wire manipulation and placement of a double-J ureteral stent within the right ureter. IMPRESSION: 1. Intraoperative films as described. Please refer to the surgical note for complete el ucidation. Fluoroscopic time of 37 seconds. AK 2.88mGy 18 total films Report Dictated By: Checo Mehta MD at 07/04/2018 12:36 PM Report E-Signed By: Checo Mehta MD at 07/04/2018 12:38 PM WSN:[id number]
== END 2018-07-04 11:50 | disposition home or self-care (01) ==
LOC: OR 00:25
PROVIDERS: ATTEND Urology
DX: N20.1 Calculus of ureter (principal); N21.0 Calculus in bladder; I10 Essential (primary) hypertension; E03.9 Hypothyroidism, unspecified; E78.00 Pure hypercholesterolemia, unspecified; K21.9 Gastro-esophageal reflux disease without esophagitis; F31.9 Bipolar disorder, unspecified; K58.9 Irritable bowel syndrome, unspecified
CPT/HCPCS: 36415; 52332; 52352; 74176; 76000; 81001; 82365; 85025; 85610; 85730; 87088; 88300; C1758; C1769; C1894; C2617; J0690; J1100; J2001; J2250; J2405; J2704; J3010; J3490; 82040; 82247; 82310; 82374; 82435; 82565; 82947; 84075; 84132; 84155; 84295; 84450; 84460; 84520